=== PATIENT | male | born 1945 | race Caucasian/White ===

== ENCOUNTER 2016-12-25 14:49 | Emergency (ER) | payer MEDICARE ==
[~2016-12-25] VITALS: Ht 182.9 cm; Wt 120.0 kg
[~2016-12-25 14:49] MED LIST: ASPIRIN LOW81 M1 PO; ASPIRIN325 MG PO; AUGMENTIN500 MG OR; BENADRYL25 MG OR; BENAZEPRIL HCL20 MG PO; CARAFATE1 GM/10 ML OR; CIPROFLOXACIN500 M1 PO; COZAAR50 MG OR; DOXYCYCL HYC100 MG PO; FINASTERIDE5 MG PO; FLOMAX0.4 M1 PO; HYDROCO/APAP1 TA9 PO; KEFLEX500 M1 PO; LASIX 20 MG TAB20 MG OR; LASIX 20 MG20 MG/TAB PO; LASIX20 MG PO; LOPRESSOR50 MG OR; LORTAB 10-325 M1 TAB PO; LORTAB5 PO; LOTENSIN20 MG PO; MAG CITRATE PO; METOPROL TAR50 MG PO; METOPROLOL TART50 MG PO; METOPROLOL50 M1 OR; METOPROLOL50 M1 PO; METRONIDAZOL500 MG PO; PERCOCET 5/325M1 TAB PO; PRAVACHOL20 MG OR; PRAVASTATIN SOD20 MG PO; PRAVASTATIN20 MG OR; PRAVASTATIN20 MG PO; ROCEPHIN1 G1 IV; TRAMADOL HYDROC50 MG PO; TYLENOL325 MG PO; ULTRAM50 M1 OR; ULTRAM50 M1 PO; VISTARIL PO; ZOFRAN ODT4 MG PO; [UNRECOGNIZED DRUG - OTHER]; [UNRECOGNIZED DRUG - REMARK] PO
[2016-12-25 16:37] LABS: URINE BILIRUBIN - DIPSTICK NEGATIVE (NEGATIVE); URINE BLOOD DIPSTICK LARGE (NEGATIVE); URINE COLOR YELLOW; URINE GLUCOSE - DIPSTICK NEGATIVE (NEGATIVE); URINE KETONE NEGATIVE (NEGATIVE); URINE NITRITE - DIPSTICK NEGATIVE (Negative); URINE PH 5.5 (4.5-8.0); URINE PROTEIN - DIPSTICK 100 mg/dL (NEG-TRACE); URINE SPECIFIC GRAVITY 1.025; URINE UROBILINOGEN - DIPSTICK 0.2 E.U./dL (0.2)
[2016-12-25 16:39] LABS: URINE CLARITY CLOUDY; URINE LEUK ESTERASE SMALL (NEGATIVE)
[2016-12-25 16:45] LABS: URINE AMORPH SEDIMENT MANY hpf (NONE-FER); URINE SQUAMOUS EPITHELIAL CELL FEW EPI/hpf (0-FEW); URINE WBC 20-50 WBC/hpf (0-5)
[2016-12-25 17:12] LABS: HEMATOCRIT 41.9 % (39.0-50.0); HEMOGLOBIN 13.8 g/dl (14.0-18.0); IMMATURE GRANULOCYTES 0.5 % (0.0-1.0); MEAN CORPUSCULAR HGB 29.3 pG CALC (26.0-32.0); MEAN CORPUSCULAR HGB CONC 32.9 g/L CALC (32.0-36.0); NEUT# 8.61 thou/uL (1.82-7.42); RED BLOOD COUNT 4.71 mill/uL (4.70-6.10); RED CELL DISTRI WIDTH 15.6 % (11.5-15.5)
[2016-12-25 17:28] LABS: ALBUMIN 3.9 g/dL (3.2-5.0); ALKALINE PHOSPHATASE 93 u/l (38-126); ANION GAP 15 (6-22 (CALC)); BILIRUBIN, TOTAL 0.7 mg/dL (0.0-1.4); BUN 22 mg/dL (8-23); BUN/CREATININE RATIO 17 (12-20 (CALC)); CALCIUM 9.1 mg/dL (8.4-10.2); CARBON DIOXIDE 23 mmol/l (22-30); CHLORIDE 107 mmol/l (95-108); CREATININE 1.3 mg/dL (0.7-1.3); GFR 54 ML/MIN (>=60 (CALC)); GFR FOR AFR.AMER. > 60 ML/MIN (>=60 (CALC)); GLUCOSE 113 mg/dL (82-115); POTASSIUM 4.2 mmol/l (3.5-5.1); SGOT/AST 18 u/l (19-48); SGPT/ALT 28 u/l (11-66); SODIUM 141 mmol/l (137-146); TOTAL PROTEIN 7.1 g/dL (6.3-8.2)
[2016-12-25 18:20] VITALS: BP 159/77
[2016-12-25] MEDS ORDERED: SEPTRA4001 PO (18:21)
--- NOTE | 2016-12-29 11:24 | NUR ---
Called in rx to [facility] for ciprofloxacin 500 mg po q12h x7 days with instructions to stop bactrim and keflex on 12/29/16 @ 4879
== END 2016-12-25 18:40 | disposition home or self-care (01) ==
LOC: ED 14:49
PROVIDERS: Emergency Medicine
DX: L89.152 Pressure ulcer of sacral region, stage 2 (principal); N39.0 Urinary tract infection, site not specified; B96.5 Pseudomonas (aeruginosa) (mallei) (pseudomallei) as the cause of diseases classified elsewhere; Z91.19 Patient's noncompliance with other medical treatment and regimen; Y92.129 Unspecified place in nursing home as the place of occurrence of the external cause

== ENCOUNTER 2017-04-10 14:10 | Inpatient (IN) | payer MEDICARE ==
[~2017-04-10] VITALS: Ht 182.9 cm; Wt 111.0 kg
[~2017-04-10 14:10] MED LIST changes: +SEPTRA4001 PO
[2017-04-10 15:00] LABS: HEMATOCRIT 41.5 % (39.0-50.0); HEMOGLOBIN 13.5 g/dl (14.0-18.0); IMMATURE GRANULOCYTES 0.3 % (0.0-1.0); MEAN CELL VOLUME 89.4 fL CALC (80.0-100.0); MEAN CORPUSCULAR HGB 29.1 pG CALC (26.0-32.0); MEAN CORPUSCULAR HGB CONC 32.5 g/L CALC (32.0-36.0); NEUT# 5.29 thou/uL (1.82-7.42); RED BLOOD COUNT 4.64 mill/uL (4.70-6.10); RED CELL DISTRI WIDTH 15.4 % (11.5-15.5)
[2017-04-10 15:07] LABS: URINE BILIRUBIN - DIPSTICK NEGATIVE (NEGATIVE); URINE BLOOD DIPSTICK TRACE-LYSED (NEGATIVE); URINE COLOR YELLOW; URINE GLUCOSE - DIPSTICK NEGATIVE (NEGATIVE); URINE KETONE NEGATIVE (NEGATIVE); URINE PROTEIN - DIPSTICK NEGATIVE (NEG-TRACE); URINE SPECIFIC GRAVITY 1.015; URINE UROBILINOGEN - DIPSTICK 0.2 E.U./dL (0.2)
[2017-04-10 15:10] LABS: ALBUMIN 3.9 g/dL (3.2-5.0); ALKALINE PHOSPHATASE 103 u/l (38-126); ANION GAP 16 (6-22 (CALC)); BILIRUBIN, TOTAL 0.6 mg/dL (0.0-1.4); BUN 21 mg/dL (8-23); BUN/CREATININE RATIO 17 (12-20 (CALC)); CARBON DIOXIDE 25 mmol/l (22-30); CHLORIDE 106 mmol/l (95-108); CREATININE 1.2 mg/dL (0.7-1.3); GFR 59 ML/MIN (>=60 (CALC)); GFR FOR AFR.AMER. > 60 ML/MIN (>=60 (CALC)); POTASSIUM 4.5 mmol/l (3.5-5.1); SGOT/AST 24 u/l (19-48); SGPT/ALT 21 u/l (11-66); SODIUM 142 mmol/l (137-146); TOTAL PROTEIN 7.1 g/dL (6.3-8.2)
[2017-04-10 15:10] LABS: URINE BACTERIA MANY hpf; URINE CLARITY CLOUDY; URINE EPITHELIAL CELLS MODERATE EPI/hpf (0-FEW); URINE LEUK ESTERASE MODERATE (NEGATIVE); URINE NITRITE - DIPSTICK POSITIVE (Negative); URINE RBC 0-2 RBC/hpf (0-5)
[2017-04-10] MEDS ORDERED: TYLENOL 500MG TAB PO (15:16)
[2017-04-10] MEDS ORDERED: TAMSULOSIN HCL0.4 MG PO (15:17)
[2017-04-10] MEDS ORDERED: FINASTERIDE5 MG PO (15:17)
[2017-04-10 15:22] LABS: MYOGLOBIN 31 ng/mL (0 - 121)
[2017-04-10 18:10] VITALS: BP 150/80
[2017-04-10 23:35] VITALS: BP 124/67
[2017-04-11 04:15] VITALS: BP 118/63
[2017-04-11 06:01] LABS: HEMATOCRIT 36.9 % (39.0-50.0); MEAN CELL VOLUME 89.1 fL CALC (80.0-100.0); MEAN CORPUSCULAR HGB CONC 32.5 g/L CALC (32.0-36.0); RED BLOOD COUNT 4.14 mill/uL (4.70-6.10); RED CELL DISTRI WIDTH 15.3 % (11.5-15.5)
[2017-04-11 06:19] LABS: ANION GAP 15 (6-22 (CALC)); BUN 18 mg/dL (8-23); BUN/CREATININE RATIO 15 (12-20 (CALC)); CARBON DIOXIDE 25 mmol/l (22-30); CHLORIDE 108 mmol/l (95-108); CREATININE 1.2 mg/dL (0.7-1.3); GFR 59 ML/MIN (>=60 (CALC)); GFR FOR AFR.AMER. > 60 ML/MIN (>=60 (CALC)); MAGNESIUM 1.8 mg/dL (1.6-2.3); POTASSIUM 4.1 mmol/l (3.5-5.1); SODIUM 143 mmol/l (137-146)
[2017-04-11 07:46] VITALS: BP 142/64
[2017-04-11 10:53] VITALS: BP 154/68
[2017-04-11 14:57] VITALS: BP 120/61
[2017-04-11 18:55] VITALS: BP 16/60
[2017-04-11 23:15] VITALS: BP 136/75
[2017-04-12 03:49] VITALS: BP 139/72
[2017-04-12 05:53] LABS: HEMATOCRIT 37.2 % (39.0-50.0); HEMOGLOBIN 11.9 g/dl (14.0-18.0); MEAN CELL VOLUME 90.7 fL CALC (80.0-100.0); RED BLOOD COUNT 4.1 mill/uL (4.70-6.10); RED CELL DISTRI WIDTH 15.2 % (11.5-15.5)
[2017-04-12 05:59] LABS: CREATININE 1.4 mg/dL (0.7-1.3); POTASSIUM 3.9 mmol/l (3.5-5.1)
[2017-04-12 08:25] VITALS: BP 133/86
[2017-04-12 10:51] VITALS: BP 135/61
[2017-04-12 15:27] VITALS: BP 146/63
[2017-04-12 19:00] VITALS: BP 125/67
[2017-04-13] VITALS (7 sets, daily range): BP systolic 133–151; BP diastolic 61–83
[2017-04-13 05:42] LABS: HEMATOCRIT 37.3 % (39.0-50.0); HEMOGLOBIN 12.1 g/dl (14.0-18.0); MEAN CELL VOLUME 89.7 fL CALC (80.0-100.0); MEAN CORPUSCULAR HGB 29.1 pG CALC (26.0-32.0); MEAN CORPUSCULAR HGB CONC 32.4 g/L CALC (32.0-36.0); RED BLOOD COUNT 4.16 mill/uL (4.70-6.10); RED CELL DISTRI WIDTH 15.1 % (11.5-15.5)
[2017-04-13 05:49] LABS: ANION GAP 14 (6-22 (CALC)); BUN 15 mg/dL (8-23); BUN/CREATININE RATIO 12 (12-20 (CALC)); CARBON DIOXIDE 22 mmol/l (22-30); CHLORIDE 110 mmol/l (95-108); CREATININE 1.3 mg/dL (0.7-1.3); GFR 54 ML/MIN (>=60 (CALC)); GFR FOR AFR.AMER. > 60 ML/MIN (>=60 (CALC)); MAGNESIUM 1.9 mg/dL (1.6-2.3); POTASSIUM 4.1 mmol/l (3.5-5.1); SODIUM 142 mmol/l (137-146)
[2017-04-13 12:01] LABS: CHOLESTEROL HDL RATIO 5.2 (<4.4 (CALC)); MAGNESIUM 1.9 mg/dL (1.6-2.3)
[2017-04-14 04:45] VITALS: BP 150/80
[2017-04-14 06:23] LABS: HEMOGLOBIN 12.5 g/dl (14.0-18.0); MEAN CELL VOLUME 88.8 fL CALC (80.0-100.0); MEAN CORPUSCULAR HGB 29.2 pG CALC (26.0-32.0); MEAN CORPUSCULAR HGB CONC 32.9 g/L CALC (32.0-36.0); RED BLOOD COUNT 4.28 mill/uL (4.70-6.10); RED CELL DISTRI WIDTH 15.1 % (11.5-15.5)
[2017-04-14 06:35] LABS: ANION GAP 14 (6-22 (CALC)); BUN 17 mg/dL (8-23); BUN/CREATININE RATIO 13 (12-20 (CALC)); CARBON DIOXIDE 22 mmol/l (22-30); CHLORIDE 108 mmol/l (95-108); CREATININE 1.3 mg/dL (0.7-1.3); GFR 54 ML/MIN (>=60 (CALC)); GFR FOR AFR.AMER. > 60 ML/MIN (>=60 (CALC)); MAGNESIUM 1.9 mg/dL (1.6-2.3); POTASSIUM 3.9 mmol/l (3.5-5.1); SODIUM 141 mmol/l (137-146)
[2017-04-14 08:48] VITALS: BP 157/77
[2017-04-14 11:00] VITALS: BP 134/73
[2017-04-14 16:00] VITALS: BP 149/66
[2017-04-14] MEDS ORDERED: GENTAK0.32 OU (17:59)
[2017-04-14] MEDS ORDERED: CIPROFLOXACN500 MG PO (18:00)
[2017-04-14] MEDS ORDERED: FLORASTOR250 M1 PO (18:00)
[2017-04-14 19:04] VITALS: BP 141/61
== END 2017-04-14 20:50 | DRG 698 ==
LOC: ED 14:10 → ED-I 16:20 → ED 16:47 → MS2 16:48
PROVIDERS: Emergency Medicine; Nurse Practitioner Family; ADMIT Internal Medicine; ATTEND Internal Medicine
PROC: 3E0234Z Introduction of Serum, Toxoid and Vaccine into Muscle, Percutaneous Approach (ICD-10-PCS; principal; 2017-04-12)
DX: T83.511A Infection and inflammatory reaction due to indwelling urethral catheter, initial encounter (principal); A41.9 Sepsis, unspecified organism; L89.122 Pressure ulcer of left upper back, stage 2; L89.152 Pressure ulcer of sacral region, stage 2; N18.3 Chronic kidney disease, stage 3 (moderate); L03.312 Cellulitis of back [any part except buttock and flank]; N13.8 Other obstructive and reflux uropathy; N39.0 Urinary tract infection, site not specified; I25.10 Atherosclerotic heart disease of native coronary artery without angina pectoris; I71.4 Abdominal aortic aneurysm, without rupture; I12.9 Hypertensive chronic kidney disease with stage 1 through stage 4 chronic kidney disease, or unspecified chronic kidney disease; M54.12 Radiculopathy, cervical region; E78.5 Hyperlipidemia, unspecified; M19.90 Unspecified osteoarthritis, unspecified site; K27.9 Peptic ulcer, site unspecified, unspecified as acute or chronic, without hemorrhage or perforation; R53.81 Other malaise; N40.1 Benign prostatic hyperplasia with lower urinary tract symptoms; K59.00 Constipation, unspecified; R10.13 Epigastric pain; H10.33 Unspecified acute conjunctivitis, bilateral; L20.9 Atopic dermatitis, unspecified; B96.5 Pseudomonas (aeruginosa) (mallei) (pseudomallei) as the cause of diseases classified elsewhere; Y84.6 Urinary catheterization as the cause of abnormal reaction of the patient, or of later complication, without mention of misadventure at the time of the procedure; Z74.01 Bed confinement status; Z95.1 Presence of aortocoronary bypass graft; Z87.891 Personal history of nicotine dependence; Z87.442 Personal history of urinary calculi; Z23 Encounter for immunization
CPT/HCPCS: J0692; J3370

== ENCOUNTER 2017-05-18 15:21 | Emergency (ER) | payer MEDICARE ==
[~2017-05-18] VITALS: Ht 182.9 cm; Wt 110.5 kg
[~2017-05-18 15:21] MED LIST changes: +CIPROFLOXACN500 MG PO; +FLORASTOR250 M1 PO; +GENTAK0.32 OU; +TAMSULOSIN HCL0.4 MG PO; +TYLENOL 500MG TAB PO
[2017-05-18 15:46] LABS: HEMATOCRIT 41.3 % (39.0-50.0); HEMOGLOBIN 13.5 g/dl (14.0-18.0); IMMATURE GRANULOCYTES 0.4 % (0.0-1.0); MEAN CELL VOLUME 88.4 fL CALC (80.0-100.0); MEAN CORPUSCULAR HGB 28.9 pG CALC (26.0-32.0); MEAN CORPUSCULAR HGB CONC 32.7 g/L CALC (32.0-36.0); NEUT# 8.19 thou/uL (1.82-7.42); RED BLOOD COUNT 4.67 mill/uL (4.70-6.10); RED CELL DISTRI WIDTH 15.5 % (11.5-15.5)
[2017-05-18 16:00] LABS: PROTHROMBIN TIME 10.8 SECONDS (9.0-12.5)
[2017-05-18 16:16] VITALS: BP 139/70
== END 2017-05-18 16:50 | disposition home or self-care (01) ==
LOC: ED 15:21
PROVIDERS: Family Medicine
DX: T83.83XA Hemorrhage due to genitourinary prosthetic devices, implants and grafts, initial encounter (principal); R31.9 Hematuria, unspecified

== ENCOUNTER 2017-05-26 14:38 | Inpatient (IN) | payer MEDICARE ==
[~2017-05-26] VITALS: Ht 182.9 cm; Wt 104.9 kg
--- NOTE | 2017-05-26 14:38 | NUR ---
pt to room 14 via ems. coughing w/chest pain
[2017-05-26 15:20] LABS: HEMATOCRIT 40.6 % (39.0-50.0); IMMATURE GRANULOCYTES 0.4 % (0.0-1.0); MEAN CELL VOLUME 88.8 fL CALC (80.0-100.0); MEAN CORPUSCULAR HGB 28.4 pG CALC (26.0-32.0); NEUT# 11.43 thou/uL (1.82-7.42); RED BLOOD COUNT 4.57 mill/uL (4.70-6.10); RED CELL DISTRI WIDTH 15.4 % (11.5-15.5)
[2017-05-26 15:30] LABS: ANION GAP 20 (6-22 (CALC)); BUN 26 mg/dL (8-23); BUN/CREATININE RATIO 18 (12-20 (CALC)); CARBON DIOXIDE 24 mmol/l (22-30); CHLORIDE 101 mmol/l (95-108); CREATININE 1.4 mg/dL (0.7-1.3); GFR 50 ML/MIN (>=60 (CALC)); GFR FOR AFR.AMER. 60 ML/MIN (>=60 (CALC)); SODIUM 141 mmol/l (137-146)
--- NOTE | 2017-05-26 15:31 | NUR ---
TEMP 99.1 ORALLY. PT SWABBED FOR FLU.
[2017-05-26 16:09] LABS: INFLUENZA A NONE DETECTED (NONE DETECT); INFLUENZA B NONE DETECTED (NONE DETECT)
--- NOTE | 2017-05-26 16:22 | NUR ---
PT PROVIDED MEDS ORDERED. MEDS RECONCILED PER PHONE CONVERSATION WITH HIS NAUN.
--- NOTE | 2017-05-26 17:15 | NUR ---
PT TAKEN TO ROOM 281 WITHOUT INCIDENT, REPORT WAS TO JUDI.
--- NOTE | 2017-05-26 17:22 | NUR ---
PT CAME FROM ER VIA STRETCHER BY WHITLEY ABDI. X3 PERSON ASSISTED PT TO TRANFER FROM STRETCHER TO BED. ORIENTED TO CALL LIGHT AND SAFETY PRECAUTIONS REINFORCED.
--- NOTE | 2017-05-26 18:00 | NUR ---
ASSESSMENT DONE AND TELE IN PLACE. LUNG SOUND DIMINISHED. # 20 LAC THAT APPEAR HEALTHY. PT HAS RASH ON RIGHT SIDE OF CHEST, BACK AND DRY SKIN. CALL LIGHT IN REACH.
[2017-05-26 18:04] VITALS: BP 134/59
[2017-05-26 18:20] VITALS: BP 129/79
--- NOTE | 2017-05-26 20:00 | NUR ---
PATIENT RESTING IN BED AT THIS TIME-AWAKE ALERT AND ORIENTEDX3. PATIENT INCONT OF MODERATE AMT OF SOFT BROWN STOOL. PATIENT IS GETTING COMPLETE BED BATH BY RUBBER COVERING MACHINE OPERATOR AT THIS TIME. PATIENT GIVEN KOROMA CATH CARE WITH SOAP AND WATER. KOROMA IS PATENT AND DRAINING CLOUDY YELLOW URINE WITH SEDIMENT. LUCA-CARE WAS GIVEN AND BARRIER CREAM APPLIED TO BUTTOCKS AND PERINEAL AREA. PATIENT TURNED AND REPOSITIONED-COMPLETE LINEN CHANGE WAS DONE. PATIENT WITH NON-PRODUCTIVE COUGH. POOR INSPIRATORY EFFORT-ENCOURAGE DEEP BREATHING EXERCISES. BS ARE DIMINISHED. IV SITE TO LEFT AC-IVF NS HUNG AT 80CC/HR. SITE APPEARS HEALTHY AT THIS TIME. PATIENT IS TOTAL CARE-STATES THATHE IS BEDBOUND FOR LAST COUPLE OF YEARS. SAFETY PRECAUTIONS REINFORCED.CALL LIGHT IN REACH. WILL CONT TO MONITOR. TELE MONITORING DEVICE IN PLACE.
[2017-05-26 23:48] VITALS: BP 122/69
--- NOTE | 2017-05-27 00:34 | NUR ---
PATIENT RESTING IN BED WITH NO COMPLAINTS AT THIS TIME. IV ZOSYN COMPLETED ORDERED. NS PATENT AND INFUSING AT 80CC/HR VIA LEFT AC SITE. KOROMA PATENT AND DRAINING CLOUDY YELLOW URINE. CALL LIGHT IN REACH. WILL CONT TO MONITOR.
[2017-05-27 04:00] VITALS: BP 128/75
--- NOTE | 2017-05-27 04:00 | NUR ---
PATIENT AWAKE AND INCONT OF MODERATE AMT OF BROWN STOOL. PATIENT CLEANED UP WITH SOAP AND WATER-BUTTOCKS, PERINEAL AND BACK ARE RED AND INFLAMED. BARRIER CREAM APPLIED TO AFFECTED AREAS. PATIENT WAS TURNED AND REPOSITIONED. PADS CHANGED. PATIENT TAKING PO FLUIDS WHEN OFFERED. CONT TO ENCOURAGE DEEP BREATHING EXERCISES. POOR INSPIRATORY EFFORT. NON-PRODUCTIVE COUGH NOTED. CALL LIGHT IN REACH. WILL CONT TO MONITOR.
--- NOTE | 2017-05-27 07:18 | NUR ---
RECEIVED BEDSIDE REPORT FROM EDISON ARREAGA. RESTING IN SUPINE POSITION WITH EYES CLOSED, AWAKENS EASILY. RESPS EVEN AND UNLABORED ON ROOM AIR, TELE MONITOR IN PLACE. KOROMA PATENT, DRAINING CLOUDY YELLOW URINE TO GRAVITY. #20 LAC INFUSING WITHOUT DIFFICULTY, SITE APPEARS HEALTHY. VOICES NO NEEDS AT THIS TIME. PLAN OF CARE DISCUSSED. SAFETY PRECAUTIONS REINFORCED. BED IN LOWEST POSITION WITH WHEELS LOCKED. CALL LIGHT WITHIN REACH. ENCOURAGED PT TO CALL FOR ANY NEEDS.
[2017-05-27 08:02] VITALS: BP 152/88
[2017-05-27 10:18] LABS: ANION GAP 16 (6-22 (CALC)); BUN 25 mg/dL (8-23); BUN/CREATININE RATIO 19 (12-20 (CALC)); CARBON DIOXIDE 24 mmol/l (22-30); CHLORIDE 104 mmol/l (95-108); CREATININE 1.3 mg/dL (0.7-1.3); GFR 54 ML/MIN (>=60 (CALC)); GFR FOR AFR.AMER. > 60 ML/MIN (>=60 (CALC)); MAGNESIUM 2.1 mg/dL (1.6-2.3); POTASSIUM 3.5 mmol/l (3.5-5.1); SODIUM 141 mmol/l (137-146)
--- NOTE | 2017-05-27 10:20 | NUR ---
MEDICATED WITH ROBITUSSIN PO FOR C/O "NAGGING COUGH."
[2017-05-27 11:24] VITALS: BP 126/68
--- NOTE | 2017-05-27 13:00 | NUR ---
DR IBARRA AT BEDSIDE, NEW ORDERS RECEIVED.
[2017-05-27 16:00] VITALS: BP 122/69
--- NOTE | 2017-05-27 16:14 | NUR ---
RESTING IN BED WITH EYES CLOSED, AWAKENS EASILY. RESPS EVEN AND UNLABORED ON ROOM AIR, TELE MONITOR IN PLACE. VOICES NO NEEDS AT THIS TIME. PO FLUIDS OFFERED. KOROMA PATENT, DRAINING ROSE MARY COLORED URINE TO GRAVITY. #20 LAC INFUSING WITHOUT DIFFICULTY, SITE APPEARS HEALTHY. CALL LIGHT WITHIN REACH. WILL CONTINUE TO MONITOR.
[2017-05-27 17:38] LABS: URINE BLOOD DIPSTICK LARGE (NEGATIVE); URINE COLOR YELLOW; URINE GLUCOSE - DIPSTICK NEGATIVE (NEGATIVE); URINE KETONE TRACE mg/dL (NEGATIVE); URINE PROTEIN - DIPSTICK 100 mg/dL (NEG-TRACE)
[2017-05-27 17:39] LABS: URINE BILIRUBIN - DIPSTICK NEGATIVE (NEGATIVE); URINE CLARITY CLOUDY; URINE LEUK ESTERASE MODERATE (NEGATIVE); URINE NITRITE - DIPSTICK POSITIVE (Negative)
[2017-05-27 17:40] LABS: URINE RBC 25-50 RBC/hpf (0-5)
[2017-05-27 17:41] LABS: URINE BACTERIA RARE hpf; URINE TRIP PHOS CRYSTALS MANY lpf
[2017-05-27 19:20] VITALS: BP 104/59; BP 120/65
--- NOTE | 2017-05-27 19:30 | NUR ---
PATIENT RESTING IN BED AT THIS TIME WITH NO COMPLAINTS. AWAKE ALERT AND ORIENTEDX3. CALL LIGHT IN REACH. WILL CONT TO MONITOR.
--- NOTE | 2017-05-27 20:15 | NUR ---
RESTING IN BED-THROAT SWAB OBTAINED FOR STREP ORDERED. PATIENT MEDICATED WITH ROBITUSSIN 5CC PO FOR NON-PRODUCTIVE COUGH. CALL LIGHT IN REACH. WILL CONT TO MONITOR.
--- NOTE | 2017-05-27 21:42 | NUR ---
PATIENT RESTING IN BED AT THIS TIME. PATIENT WAS GIVEN COMPLETE BED BATH, KOROMA CATH CARE AND LINEN CHANGED. PATIENT WAS TURNED AND REPOSITIONED. BARRIER CREAM WAS APPLIED TO BUTTOCKS, PERINEAL AND BACK FOR REDDENED AREAS. PATIENT IS NON-COMPLIANT TO BEING PLACE ON HIS SIDE AT THIS TIME. ATTEMPT TO EDUCATE PATIET REGUARDING IMMOBILITY AND EFFECTS ON SKIN WERE UNSUCCESSFUL.. BOTH HEELS OFFLOADED USING PILLOWS. KOROMA CONT TO DRAIN YELLOW CLOUDY URINE WITH SEDIMENT. IVF PATENT TO LEFT AC AT KVO RATE. CALL LIGHT IN REACH. WILL CONT TO MONITOR.
[2017-05-28] VITALS (7 sets, daily range): BP systolic 136–166; BP diastolic 62–84
--- NOTE | 2017-05-28 00:44 | NUR ---
PATIENT RESTING IN BED-NO COMPLAINTS AT THIS TIME. PATIENT CONT TO DECLINE REPOSITIONING. CALL LIGHT IN REACH. WILL CONT TO MONITOR.
[2017-05-28 05:56] LABS: HEMATOCRIT 38.2 % (39.0-50.0); HEMOGLOBIN 12.2 g/dl (14.0-18.0); IMMATURE GRANULOCYTES 0.6 % (0.0-1.0); MEAN CORPUSCULAR HGB 28.4 pG CALC (26.0-32.0); MEAN CORPUSCULAR HGB CONC 31.9 g/L CALC (32.0-36.0); NEUT# 5.75 thou/uL (1.82-7.42); RED BLOOD COUNT 4.29 mill/uL (4.70-6.10); RED CELL DISTRI WIDTH 15.1 % (11.5-15.5)
--- NOTE | 2017-05-28 07:35 | NUR ---
PT HAS BEEN RESTING WITH SHEETS OVER HIS HEAD, IV SITE IS FREE FROM REDNESS OR EDEMA. HR IS REG, PULSES ARE STRONG X4, ABD IS SOFT WITH ACTIVE BS, KOROMA INTACT. CONTINUE TO OBSERVE AND MONITOR.
--- NOTE | 2017-05-28 08:16 | NUR ---
Critical results of 1 of 4 bottles from blood culture called to Dr Pak. New order received for vancomycin.
[2017-05-28 08:18] LABS: CREATININE 1.4 mg/dL (0.7-1.3); POTASSIUM 3.2 mmol/l (3.5-5.1)
--- NOTE | 2017-05-28 12:00 | NUR ---
PT IS RELAXING IN BED WITH NO DISTRESS NOTED. IV SITE IS FREE FROM REDNESS OR EDEMA., PT C/O POTASSIUM BURNING HIM CUT THE RATE DOWN INFISONG BETTER MORE TOLERABLE.
--- NOTE | 2017-05-28 13:58 | NUR ---
S: MARIAH FINLEY is a 72 M who presents with chest pain, acute bronchitis, and decubitus ulcers. He has a history of CKD stage 3, pressure ulcers, and recent Pseudomonas infection of the wound. All medications in patient's chart were reviewed. O: VS: BP 136/73, P 84, RR 16,T 97.4 W 105 kg, HT 72 in, Scr=1.4, CrCl= 50.8 ml/min A: Blood culture is growing gram positive cocci. P: Patient is on Zosyn 3.375 g IV Q6H. Vancomycin ordered for pharmacy to dose. Start Vancomycin 1 g IV Q12H. Vancomycin trough is drawn before the 4th dose on 05/29 @2030. Vancomycin goal trough is between 15-20 mcg/ml. Pharmacy will follow and or advise on antibiotics use as needed.
--- NOTE | 2017-05-28 16:00 | NUR ---
PT IS CONTINUING THE POTASSIUM AT A LOW RATE DUE TO BURNING. IV SITE IS FREE FROM REDNESS OR EDEMA. CONTIINUE TO OSBERVE AND MONITOR, TELE MONITOR IN PLACE.
--- NOTE | 2017-05-28 20:35 | NUR ---
PT.IS UPRIGHT IN BED W/TV OFF SITTING IN HIGH FOWLERS POSITION. ANTIBIOTIC THERAPY AND MEDICATIONS ADMINISTERED ORDERED. PT.ASSESSED AND REPOSITIONED. PT.DENIES ANY OTHER NEEDS AT THIS TIME, CALL LIGHT IS IN HAND.
--- NOTE | 2017-05-28 23:10 | NUR ---
ED CALLED TO REPORT 4 BEAT RUN OF V-TACH. PT.ASSESSED ASYMPTOMATIC, V/S ASSESSED, BP150/79,HR92 O2 SAT 95% ED FAXED COPY OF RUN FOR CHART. BOOK COVERER WAS PREVIOUSLY NOTIFIED EARLIER AND NO NEW ORDERS AT THAT TIME. WILL CONTINUE TO MONITOR CLOSELY.
--- NOTE | 2017-05-28 23:58 | NUR ---
PT.MEDICATED W/ANTIBIOTIC THERAPY AT THIS TIME. PT.WAS ASLEEP, BUT AWOKE TO MY VOICE UPON ENTERING ROOM. DENIES ANY NEEDS, CALL LIGHT AT SIDE.
[2017-05-29 04:09] VITALS: BP 153/80
--- NOTE | 2017-05-29 04:10 | NUR ---
ED CALLED TO REPORT RUN OF V-TACH 118 ON ASSET COORDINATOR. AIDE AND NURSE ZENAIDA ARE IN ROOM AT THIS TIME ASSESSING 4AM V/S AND EMPTYING KORMOA CATHETER. PT.IS ASYMPTOMATIC, DENIES SOB OR CHEST PAIN AT THIS TIME.
--- NOTE | 2017-05-29 05:18 | NUR ---
ED CALLED TO REPORT RUN OF V-TACH, PT.DENIES ANY SYMPTOMS, NO CHEST PAIN OR SOB. V/S ASSESSED. NO S/S OF DISTRESS. PT.INSTRUCTED TO CALL IF HE BECOMES SYMPTOMATIC OR HAS ANY NEEDS. PT.PROVIDED W/CRANBERRY JUICE PER REQUEST. CALL LIGHT AT BEDSIDE
--- NOTE | 2017-05-29 05:20 | NUR ---
PT.IS IN BED WITH LIGHTS OUT, BUT AWAKE. STATES TOO MUCH ACTIVITY GOING ON W/LAB AND ALL COMING IN TO SLEEP. ANTIBIOTIC THERAPY ADMINISTERED AT THIS TIME. NO S/S OF DISTRESS, KOROMA CATHETER DRAINING DARK STEPHEN TO RED DRAINAGE.
[2017-05-29 05:27] LABS: HEMATOCRIT 36.2 % (39.0-50.0); HEMOGLOBIN 11.7 g/dl (14.0-18.0); MEAN CELL VOLUME 88.5 fL CALC (80.0-100.0); MEAN CORPUSCULAR HGB 28.6 pG CALC (26.0-32.0); MEAN CORPUSCULAR HGB CONC 32.3 g/L CALC (32.0-36.0); RED BLOOD COUNT 4.09 mill/uL (4.70-6.10); RED CELL DISTRI WIDTH 15.2 % (11.5-15.5)
[2017-05-29 05:59] LABS: ANION GAP 16 (6-22 (CALC)); BUN 26 mg/dL (8-23); BUN/CREATININE RATIO 20 (12-20 (CALC)); CARBON DIOXIDE 24 mmol/l (22-30); CHLORIDE 107 mmol/l (95-108); CREATININE 1.3 mg/dL (0.7-1.3); GFR 54 ML/MIN (>=60 (CALC)); GFR FOR AFR.AMER. > 60 ML/MIN (>=60 (CALC)); MAGNESIUM 2.3 mg/dL (1.6-2.3); POTASSIUM 3.8 mmol/l (3.5-5.1); SODIUM 143 mmol/l (137-146)
--- NOTE | 2017-05-29 07:15 | NUR ---
BEDSIDE REPORT RECEIVED BY RADHAMES. PT IS SLEEPING IN BED WITH NO S/S OF DISTRESS NOTED. CALL LIGHT IN REACH.
[2017-05-29 07:59] VITALS: BP 146/84
--- NOTE | 2017-05-29 08:00 | NUR ---
ASSESSMENT DONE AND TELE IN PLACE. LUNG SOUND CLEAR/DIMINISHED. PT DENIES PAIN AT THIS TIME. ORIENTED TO CALL LIGHT AND SAFETY PRECAUTIONS REINFORCED.
[2017-05-29 10:49] VITALS: BP 142/68
--- NOTE | 2017-05-29 12:00 | NUR ---
TURN PT TO RIGHT SIDE AND SKIN PROTECTANT APPLIED TO BACK. NO S/S OF DISTRESS NOTED. PT DENIES PAIN AT THIS TIME. CALL LIGHT IN REACH.
--- NOTE | 2017-05-29 13:03 | NUR ---
ED CALLED RE: PT HAVING A 8 BEAT, ASSESS PT AND PT IS GETTING A NEB TREATMENT. PT DENIES PAIN AND NO S/S OF DISTRESS NOTED. WILL CONTUINE TO MONITOR PT .
[2017-05-29 14:35] VITALS: BP 131/73
--- NOTE | 2017-05-29 14:35 | NUR ---
ED CALLED RE: PT HAD 7 BEAT HEART RATE V-TACH. VS OBTAINED AND PT DENIES PAIN AT THIS TIME. NOTIFIED DR. ALEMAN, NO ORDERS RECEIVED AT THIS TIME.
[2017-05-29 15:35] VITALS: BP 146/75
--- NOTE | 2017-05-29 16:03 | NUR ---
PT IS SEMI-FOWLERS WITH NO S/S OF DISTRESS NOTED. PT DENIES NEEDS AT THIS TIME. CALL LIGHT IN REACH.
--- NOTE | 2017-05-29 19:20 | NUR ---
PT.IS IN BED IN HIGH FOWLERS POSITION WITH LIGHTS LOW AND TV ON. PT.DENIES ANY NEEDS AT THIS TIME, CALL LIGHT AT BEDSIDE AND PT.INSTRUCTED TO CALL IF ANY NEEDS ARISE. NO S/S OF DISTRESS.
[2017-05-29 19:35] VITALS: BP 112/66
--- NOTE | 2017-05-29 20:28 | NUR ---
PT.ASSESSED, LUNG SOUNDS DIM LOWER/CLEAR UPPER. REPORTS OCCASIONAL NON-PRODUCTIVE COUGH. DENIES ANY CHEST PAIN OR SOB. REPORTS GETTING DUO-NEBS THROUGHOUT DAY. FEET BILAT POSIITIONED ON PILLOWS OFF OF BED. HEEL PROTECTORS IN PLACE. PT.DENIES ANY OTHER NEEDS AT THIS TIME, BUT ENCOURAGED PT.TO CALL IF ANY NEEDS ARISE. CALL LIGHT IS AT SIDE. WATER REFILLED FOR PT.
[2017-05-30] VITALS (7 sets, daily range): BP systolic 119–146; BP diastolic 65–82
--- NOTE | 2017-05-30 02:20 | NUR ---
PT.APPEARS TO BE SLEEPING AT THIS TIME. NO S/S OF DISTRESS. LIGHTS ARE OUT, TV OFF. CALL LIGHT ON BST W/IN REACH
--- NOTE | 2017-05-30 05:30 | NUR ---
PT.REPOSITIONED, PICTURES TAKEN AND BARRIER CREAM APPLIED TO BACK, HEEL PROTECTORS ON AND ELEVATED ON PILLOWS W/HEELS OFF OF BED. PT. DENIES ANY OTHER NEEDS, CALL LIGHT W/IN REACH
--- NOTE | 2017-05-30 07:00 | NUR ---
BEDSIDE REPORT RECEIVED RADHAMES. PT IS RESTING IN BED WITH NO S/S OF DISTRESS NOTED. PT DENIES NEEDS AT THIS TIME. CALL LIGHT IN REACH.
--- NOTE | 2017-05-30 08:00 | NUR ---
ASSESSMENT DONE AND TELE IN PLACE. LUNG SOUND CLEAR/DIMINISHED. #20 RAC THAT APPEARS HEALTHY. PT DENIES PAIN AT THIS TIME. SAFETY PRECAUTIONS REINFROCED. CALL LIGHT IN REACH.
--- NOTE | 2017-05-30 10:41 | NUR ---
CALLED DR. HECTOR RE: PT CONSULT.
--- NOTE | 2017-05-30 12:00 | NUR ---
PT IS SEMI FOWLERS IN BED EATING HIS LUNCH WITH NO S/S OF DISTRESS NOTED. PT DENIES NEEDS AT THIS TIME. CALL LIGHT IN REACH.
--- NOTE | 2017-05-30 14:09 | NUR ---
STRING STUDIES DIRECTOR TURN PT TO LEFT SIDE. PT DENIES NEEDS AT THIS TIME. PT IN ROOM. CALL LIGHT IN REACH.
--- NOTE | 2017-05-30 15:54 | NUR ---
DR. HECTOR AT BEDSIDE TO ASSESS PT .
--- NOTE | 2017-05-30 16:34 | NUR ---
ANGELICARN AT BEDSIDE TO DO THE INTERGATION ON PACEMAKER, PER DR. HECTOR.
--- NOTE | 2017-05-30 16:34 | NUR ---
WHITLEY DOMINGUEZFLATBED TRUCK DRIVER PT PACEMAKER, PER DR. HECTOR.
--- NOTE | 2017-05-30 16:49 | NUR ---
WHITLEY DOMINGUEZ CALLED DR. HECTOR RE: PT RESULT OF PACEMAKER. STATED THAT PT WILL BE TRANSFER TOMORROW TO [facility].
--- NOTE | 2017-05-30 19:28 | NUR ---
REPORT RECIEVED; PT RESTING IN BED. PT DENIES ANY PAIN OR DISCOMFORT. RESP EVEN AND UNLABORED. LUNGS CLEAR/DIMINISHED BILAT. TELE IN PLACE. ABD DISTENDED/SOFT; HYPOACTIVE BOWEL SOUNDS NOTED. KOROMA CATH CARE GIVEN; KOROMA PATENT DRAINING DARK ROSE MARY URINE. TRACE ANKLE EDEMA BILAT; PT ENCOURAGED TO ELEVATE. PEDAL PULSES PALPATED BILAT. IV LAC PATENT; NO REDNESS OR EDEMA NOTED. PT REPOSITIONED X2 PERSON ASSIST. SAFETY PRECAUTIONS REINFORCED. PT ENCOURAGED TO CALL FOR ASSISTANCE. FREQUENT ROUNDS MADE. CALL LIGHT WITHIN REACH.
--- NOTE | 2017-05-30 20:35 | NUR ---
DR HECTOR CALLED AND VOICE MESSAGE LEFT IN REGRDS TO [facility]ITER[facility] TO TRANSFERING PT TO ICU. KILNMAN NOTIFIED.
--- NOTE | 2017-05-31 | NUR ---
PT SLEEPING WITH EYES CLOSED. IV PATENT; NO REDNESS OR EDEMA NOTED. RESP EVEN AND UNLABORED. TELE IN PLACE. CALL LIGHT WITHIN REACH.
--- NOTE | 2017-05-31 04:00 | NUR ---
ASSESSMENT UNCHANGED. RESP EVEN AND UNLABORED; NO DISTRESS NOTED. TELE IN PLACE. IV PATENT; NO REDNESS OR EDEMA NOTED. CALL LIGHT WITHIN REACH.
[2017-05-31 05:30] VITALS: BP 146/86
--- NOTE | 2017-05-31 06:00 | NUR ---
ER CALLED, PT HAD 11 BEAT RUN OF V-TACH AT 0554. DR HECTOR NOTIFIED OF V TACH AND PT VITAL SIGNS. BP: 135/56, HR:86, O2: 94% ON ROOM AIR. PT ASYMPTOMATIC. NEW ORDER TO GIVE 0900 DOSE OF AMIODARONE 200MG NOW. TELE IN PLACE. CALL LIGHT WITHIN REACH.
--- NOTE | 2017-05-31 07:00 | NUR ---
BEDSIDE REPORT RECIEVED BY TITI. PT IS SLEEPING WITH NO S/S OF DISTRESS NOTED. CALL LIGHT IN REACH.
[2017-05-31 07:21] VITALS: BP 157/69
--- NOTE | 2017-05-31 07:35 | NUR ---
PT WENT DOWN TO ULTRASOUND VIA STRETCHER BY POULTRY INSEMINATOR.
--- NOTE | 2017-05-31 07:55 | NUR ---
PT BACK FROM ULTRASOUND WITH NO S/S OF DISTRESS NOTED. CALL LIGHT IN REACH.
--- NOTE | 2017-05-31 08:01 | NUR ---
ASSESSMENT DONE AND TELE IN PLACE. LUNG SOUND DIMINISHED. # 20 LAC THAT APPEAR HEALTHY. PT DENIES PAIN AT THIS TIME. SAFETY PRECAUTIONS REINFORCED AND CALL LIGHT IN REACH.
--- NOTE | 2017-05-31 12:15 | NUR ---
PT IS SEMI FOLWERS IN BED TALKING IN THE PHONE WITH NO S/S OF DISTRESS NOTED. PT DENIES PAIN AT THIS TIME. CALL LIGHT IN REACH.
[2017-05-31 12:35] VITALS: BP 134/79
--- NOTE | 2017-05-31 13:08 | NUR ---
RECEIVED AN ASSIGNED BED FOR PATIENT AND SPOKE TO MARIOLA. CALLED [facility] AND SET UP TRANSPORT. SPOKE WITH ZULY AND THEY SHOULD BE HERE AROUND 1530.
[2017-05-31 16:14] VITALS: BP 141/80
--- NOTE | 2017-05-31 16:36 | NUR ---
TRANSPORT IS HERE TAKING PT VIA STRETCHER TO [facility]. PT HAS NO S/S OF DISTRESS NOTED.
--- NOTE | 2017-05-31 17:03 | NUR ---
REPORT GIVEN TO NURSE SHALOM FROM [facility] .
== END 2017-05-31 16:50 | disposition short-term general hospital (02) | DRG 202 ==
LOC: ED 14:38 → ED-I 16:13 → ED 16:26 → MS2 16:27
PROVIDERS: Family Medicine; Nurse Practitioner Family; ADMIT Internal Medicine; ATTEND Internal Medicine
DX: J20.9 Acute bronchitis, unspecified (principal); I47.2 Ventricular tachycardia; L89.102 Pressure ulcer of unspecified part of back, stage 2; L89.302 Pressure ulcer of unspecified buttock, stage 2; N18.3 Chronic kidney disease, stage 3 (moderate); I13.0 Hypertensive heart and chronic kidney disease with heart failure and stage 1 through stage 4 chronic kidney disease, or unspecified chronic kidney disease; T82.191A Other mechanical complication of cardiac pulse generator (battery), initial encounter; T83.511A Infection and inflammatory reaction due to indwelling urethral catheter, initial encounter; N39.0 Urinary tract infection, site not specified; I49.3 Ventricular premature depolarization; I48.91 Unspecified atrial fibrillation; D63.1 Anemia in chronic kidney disease; I50.9 Heart failure, unspecified; I25.10 Atherosclerotic heart disease of native coronary artery without angina pectoris; K21.9 Gastro-esophageal reflux disease without esophagitis; E78.5 Hyperlipidemia, unspecified; N40.0 Benign prostatic hyperplasia without lower urinary tract symptoms; M48.00 Spinal stenosis, site unspecified; I71.4 Abdominal aortic aneurysm, without rupture; M19.90 Unspecified osteoarthritis, unspecified site; R53.81 Other malaise; I25.2 Old myocardial infarction; Y83.1 Surgical operation with implant of artificial internal device as the cause of abnormal reaction of the patient, or of later complication, without mention of misadventure at the time of the procedure; Y84.6 Urinary catheterization as the cause of abnormal reaction of the patient, or of later complication, without mention of misadventure at the time of the procedure; Z95.5 Presence of coronary angioplasty implant and graft; Z87.440 Personal history of urinary (tract) infections; Z74.01 Bed confinement status; Z87.891 Personal history of nicotine dependence; Z87.11 Personal history of peptic ulcer disease; Z91.19 Patient's noncompliance with other medical treatment and regimen; Z87.442 Personal history of urinary calculi; Z95.1 Presence of aortocoronary bypass graft
CPT/HCPCS: G0378

== ENCOUNTER 2017-06-16 11:29 | Observation (INO) | payer MEDICARE ==
[~2017-06-16] VITALS: Ht 182.9 cm; Wt 107.5 kg
[2017-06-16 12:40] LABS: HEMATOCRIT 38.8 % (39.0-50.0); HEMOGLOBIN 12.4 g/dl (14.0-18.0); IMMATURE GRANULOCYTES 0.8 % (0.0-1.0); MEAN CORPUSCULAR HGB 28.8 pG CALC (26.0-32.0); NEUT# 11.88 thou/uL (1.82-7.42); RED BLOOD COUNT 4.31 mill/uL (4.70-6.10); RED CELL DISTRI WIDTH 16.8 % (11.5-15.5)
[2017-06-16 14:08] LABS: ALBUMIN 2.7 g/dL (3.2-5.0); BILIRUBIN, TOTAL 0.5 mg/dL (0.0-1.4); CREATININE 1.6 mg/dL (0.7-1.3); POTASSIUM 4.6 mmol/l (3.5-5.1); TOTAL PROTEIN 5.6 g/dL (6.3-8.2)
[2017-06-16 14:32] LABS: URINE BILIRUBIN - DIPSTICK NEGATIVE (NEGATIVE); URINE BLOOD DIPSTICK LARGE (NEGATIVE); URINE GLUCOSE - DIPSTICK NEGATIVE (NEGATIVE); URINE KETONE NEGATIVE (NEGATIVE); URINE NITRITE - DIPSTICK NEGATIVE (Negative); URINE PH 5.5 (4.5-8.0); URINE PROTEIN - DIPSTICK TRACE mg/dL (NEG-TRACE); URINE UROBILINOGEN - DIPSTICK 0.2 E.U./dL (0.2)
[2017-06-16 14:34] LABS: URINE CLARITY SL CLOUDY; URINE COLOR AMBER; URINE LEUK ESTERASE MODERATE (NEGATIVE)
[2017-06-16 14:35] LABS: URINE RBC 25-50 RBC/hpf (0-5); URINE YEAST FEW hpf
[2017-06-16 16:40] VITALS: BP 116/66
[2017-06-16 18:47] VITALS: BP 134/67
[2017-06-17 00:48] VITALS: BP 148/86
[2017-06-17 05:17] LABS: HEMATOCRIT 39.1 % (39.0-50.0); HEMOGLOBIN 12.6 g/dl (14.0-18.0); MEAN CELL VOLUME 89.7 fL CALC (80.0-100.0); MEAN CORPUSCULAR HGB 28.9 pG CALC (26.0-32.0); MEAN CORPUSCULAR HGB CONC 32.2 g/L CALC (32.0-36.0); RED BLOOD COUNT 4.36 mill/uL (4.70-6.10); RED CELL DISTRI WIDTH 16.8 % (11.5-15.5)
[2017-06-17 05:30] LABS: CREATININE 1.7 mg/dL (0.7-1.3); POTASSIUM 4.4 mmol/l (3.5-5.1)
[2017-06-17 06:29] VITALS: BP 122/70
[2017-06-17 08:00] VITALS: BP 121/57
[2017-06-17] MEDS ORDERED: PRAVASTATIN SOD20 MG PO (09:29)
[2017-06-17] MEDS ORDERED: ASPIRIN LOW DOS81 MG PO (09:29)
[2017-06-17] MEDS ORDERED: TAMSULOSIN HCL0.4 MG PO (09:31)
[2017-06-17] MEDS ORDERED: TYLENOL500 MG PO (09:31)
[2017-06-17] MEDS ORDERED: PROSCAR5 MG PO (09:31)
[2017-06-17] MEDS ORDERED: FUROSEMIDE20 MG PO (09:32)
== END 2017-06-17 16:02 ==
LOC: ED 11:29 → ED-I 15:05 → ED 15:19 → MS2 15:20
PROVIDERS: Emergency Medicine; Nurse Practitioner Family; ADMIT Internal Medicine; ATTEND Internal Medicine
DX: E86.0 Dehydration (principal); N17.9 Acute kidney failure, unspecified; I49.3 Ventricular premature depolarization; R53.81 Other malaise; R00.1 Bradycardia, unspecified; I48.91 Unspecified atrial fibrillation; E78.5 Hyperlipidemia, unspecified; I25.10 Atherosclerotic heart disease of native coronary artery without angina pectoris; K21.9 Gastro-esophageal reflux disease without esophagitis; N40.0 Benign prostatic hyperplasia without lower urinary tract symptoms; M19.90 Unspecified osteoarthritis, unspecified site; M48.00 Spinal stenosis, site unspecified; I71.4 Abdominal aortic aneurysm, without rupture; I12.9 Hypertensive chronic kidney disease with stage 1 through stage 4 chronic kidney disease, or unspecified chronic kidney disease; N18.3 Chronic kidney disease, stage 3 (moderate); Z95.5 Presence of coronary angioplasty implant and graft; Z95.1 Presence of aortocoronary bypass graft; Z87.11 Personal history of peptic ulcer disease; Z87.891 Personal history of nicotine dependence; Z95.810 Presence of automatic (implantable) cardiac defibrillator
CPT/HCPCS: J1650

== ENCOUNTER 2017-08-09 07:01 | Inpatient (IN) | payer MEDICARE ==
[~2017-08-09] VITALS: Ht 182.9 cm; Wt 107.5 kg
[~2017-08-09 07:01] MED LIST changes: +ASPIRIN LOW DOS81 MG PO; +FUROSEMIDE20 MG PO; +PROSCAR5 MG PO; +TYLENOL500 MG PO
--- NOTE | 2017-08-09 07:01 | NUR ---
TO TX ROOM VIA STRETCHER BY EMS
--- NOTE | 2017-08-09 07:32 | NUR ---
PT STATES THAT HE BEGAN HAVING A FEVER ON THURSDAY THAT IS NOT GOING AWAY WITH MEDICATIONS. PT DENIES ANY C/P, SOB, N/V OR WEAKNESS. PT HAS CRACKLES IN THE LEFT LOWER LOBE ON AUSCULTATION, PT HAS A REDDENED BACK WITH A OPENING ON THE RIGHT SHOULDER. PT HAS A KOROMA PLACED PRIOR AT HOME, PT IS AOX4. PT IS BEDRIDDEN.
[2017-08-09 07:43] LABS: HEMATOCRIT 36.4 % (39.0-50.0); HEMOGLOBIN 11.6 g/dl (14.0-18.0); IMMATURE GRANULOCYTES 0.4 % (0.0-1.0); MEAN CELL VOLUME 89.4 fL CALC (80.0-100.0); MEAN CORPUSCULAR HGB 28.5 pG CALC (26.0-32.0); MEAN CORPUSCULAR HGB CONC 31.9 g/L CALC (32.0-36.0); NEUT# 14.42 thou/uL (1.82-7.42); RED BLOOD COUNT 4.07 mill/uL (4.70-6.10); RED CELL DISTRI WIDTH 17.5 % (11.5-15.5)
[2017-08-09 07:57] LABS: PROTHROMBIN TIME 11.4 SECONDS (9.0-12.5)
[2017-08-09 07:58] LABS: ALBUMIN 3.6 g/dL (3.2-5.0); BILIRUBIN, TOTAL 0.9 mg/dL (0.0-1.4); CREATININE 1.5 mg/dL (0.7-1.3)
--- NOTE | 2017-08-09 08:21 | NUR ---
PT ASLEEP ON STRETCHER, FLUIDS RUNNING, IV PATENT WITH NO PAIN OR EDEMA. EKG BEING COMPLETED
[2017-08-09 08:48] LABS: URINE BILIRUBIN - DIPSTICK NEGATIVE (NEGATIVE); URINE BLOOD DIPSTICK LARGE (NEGATIVE); URINE COLOR YELLOW; URINE GLUCOSE - DIPSTICK NEGATIVE (NEGATIVE); URINE KETONE NEGATIVE (NEGATIVE); URINE LEUK ESTERASE LARGE (NEGATIVE); URINE NITRITE - DIPSTICK NEGATIVE (Negative); URINE PROTEIN - DIPSTICK 100 mg/dL (NEG-TRACE); URINE SPECIFIC GRAVITY 1.015; URINE UROBILINOGEN - DIPSTICK 0.2 E.U./dL (0.2)
[2017-08-09 08:49] LABS: URINE CLARITY CLOUDY; URINE EPITHELIAL CELLS MANY EPI/hpf (0-FEW); URINE RBC 25-50 RBC/hpf (0-5); URINE WBC 50-100 WBC/hpf (0-5)
[2017-08-09 08:50] LABS: URINE BACTERIA MODERATE hpf
--- NOTE | 2017-08-09 09:21 | NUR ---
PT RESTING ON STRETCHER, IV PATENT WITH ANTIBIOTICS RUNNING. PT STATES NO NEW COMPLAINTS AT THIS TIME.
--- NOTE | 2017-08-09 09:54 | NUR ---
ORDERED HOME KOROMA TO BE REMOVED AND REPLACED WITH A NEW URINE CATCH
--- NOTE | 2017-08-09 10:06 | NUR ---
REPOR CALLED TO ICU- REPORT GIVEN TO ALIZA ARREAGA- ACCEPTED PT
--- NOTE | 2017-08-09 10:32 | NUR ---
Admission Note Report Given to: ALIZA ARREAGA Transported by: Wheelchair X Stretcher Transported with: X Nurse Transporter X Patent IV O2 X Correctional Cook TRANSPORTED TO ICU 2 WITH OUT INCIDENT
[2017-08-09 10:46] VITALS: BP 118/61
--- NOTE | 2017-08-09 11:16 | NUR ---
REPORT RECEIVED FROM KYARA IN ED, PT ARRIVED ON UNIT @ 1030 VIA STRETCHER AND TRANSFERRED TO BED, ALERT AND ORIENTED X 4, ORIENTED TO ROOM AND CALL NAVARRO, DENIES PAIN AT THIS TIME. KOROMA IN PLACE DRAINING GREYISH-YELLOW URINE, MONITOIRING DEVICES APPLIED, VITAL SIGNS MEASURED AND RECORDED. BED BATH WITH LUCA CARE FROM BOWEL INCONTINENCE PERFORMED. ENTIRE BACK, GROINS AND RIGHT SIDE REDDENED WITH SKIN SHEARING TO GLUTEUS AND GROINS. WILL CONTINUE TO MONITOR, CALL NAVARRO IN REACH.
[2017-08-09 11:21] LABS: URINE BILIRUBIN - DIPSTICK NEGATIVE (NEGATIVE); URINE BLOOD DIPSTICK MODERATE (NEGATIVE); URINE COLOR YELLOW; URINE GLUCOSE - DIPSTICK NEGATIVE (NEGATIVE); URINE KETONE NEGATIVE (NEGATIVE); URINE NITRITE - DIPSTICK NEGATIVE (Negative); URINE PH 6.5 (4.5-8.0); URINE PROTEIN - DIPSTICK 30 mg/dL (NEG-TRACE); URINE UROBILINOGEN - DIPSTICK 0.2 E.U./dL (0.2)
[2017-08-09 11:23] LABS: URINE CLARITY HAZY; URINE LEUK ESTERASE LARGE (NEGATIVE)
--- NOTE | 2017-08-09 13:14 | NUR ---
ATE MEAL AND RESTING IN BED AT THIS TIME, SPOUSE CALLED TO INQUIRE ABOUT PT, PT GAVE PERMISSION TO GIVE INFORMATION, CALL NAVARRO IN REACH.
--- NOTE | 2017-08-09 13:49 | NUR ---
Drug Selected: Vancomycin Age: 72 years Weight: 105 kg Height: 73 in Gender: Male SCR: 1.5 mg/dl WEIGHT 100KG CRCL=48 Give Vancomycin 1000 mg q12 hrs TROUGH WILL BE 08/10/17 @1930
--- NOTE | 2017-08-09 15:35 | NUR ---
SLEEPING AT THIS TIME, NO SIGN DISCOMFORT, MONITORS IN PLACE, CALL NAVARRO IN REAC.H
[2017-08-09 16:02] VITALS: BP 105/55
--- NOTE | 2017-08-09 16:31 | NUR ---
PT AWAKE AT THIS TIME, FAMILY MEMBERS IN ROOM VISITING.
[2017-08-09 20:20] VITALS: BP 100/64
--- NOTE | 2017-08-09 20:20 | NUR ---
PT TRANSFERED TO FLOOR IN BED FROM ICU. PT RESTING IN BED. DENIES PAIN. RESP EVEN AND UNLABORED. TELE ON. ABD SOFT, ACTIVE BOWEL SOUNDS. KOROMA IN PLACE, YELLOW URINE. LEG STRAP IN PLACE. LEGS ELEVATED, PEDAL PULSES PALPATED BILAT. PT ORIENTED TO ROOM AND CALL LIGHT SYSTEM. VITAL SIGNS OBTAINED BY CALL CENTER SUPPORT REPRESENTATIVE. IV LAC PATENT; FLUSHED WITHOUT DIFFICULTY. IV RH PATENT; FLUSHED WITHOUT DIFFICULTY. SAFETY PRECAUTIONS REINFORCED. FREQUENT ROUNDS MADE. CALL LIGHT WITHIN REACH.
[2017-08-10] VITALS (7 sets, daily range): BP systolic 100–115; BP diastolic 54–67
--- NOTE | 2017-08-10 | NUR ---
PT WOKE TO BE REPOSITIONED. PT DENIES PAIN. RESP EVEN AND UNLABORED. TELE IN PLACE. IV PATENT; NO REDNESS OR EDEMA NOTED. KOROMA PATENT; YELLOW URINE. CALL LIGHT WITHIN REACH.
--- NOTE | 2017-08-10 00:20 | NUR ---
ER PRINTED CIRCUIT BOARD PCB DRAFTSMAN MIA MADE CALL TO FLOOR, UNABLE TO READ RHYTHM. PRINTED CIRCUIT BOARD PCB DRAFTSMAN REQUESTING EKG. PRN EKG FOR CP/ RHYTHM CHANGE OBTAINED. COAL CONVEYOR OPERATOR SIS NOTIFIED OF PRINTED CIRCUIT BOARD PCB DRAFTSMAN REQUEST.
--- NOTE | 2017-08-10 04:13 | NUR ---
PT WOKE FOR MORNING BLOOD WORK. ASSESSMENT UNCHNAGED; RESP EVEN AND UNLABORED. PT DENIES PAIN. TELE IN PLACE. IV PATENT; NO REDNESS OR EDEMA NOTED. KOROMA PATENT; YELLOW URINE. CALL LIGHT WITHIN REACH.
[2017-08-10 05:14] LABS: IMMATURE GRANULOCYTES 0.3 % (0.0-1.0); MEAN CELL VOLUME 91.2 fL CALC (80.0-100.0); MEAN CORPUSCULAR HGB CONC 31.8 g/L CALC (32.0-36.0); NEUT# 4.31 thou/uL (1.82-7.42); RED BLOOD COUNT 3.31 mill/uL (4.70-6.10); RED CELL DISTRI WIDTH 17.6 % (11.5-15.5)
[2017-08-10 05:16] LABS: HEMATOCRIT 30.2 % (39.0-50.0); HEMOGLOBIN 9.6 g/dl (14.0-18.0)
[2017-08-10 05:33] LABS: CREATININE 1.4 mg/dL (0.7-1.3); POTASSIUM 3.4 mmol/l (3.5-5.1)
--- NOTE | 2017-08-10 07:05 | NUR ---
REPORT RECEIVED FROM KASSIE GUZMAN;PT RESTING IN SEMI FOWLERS POSITION;INTRODUCED SELF TO PT AND POC DISCUSSED;PT DENIES ANY PAIN OR NEEDS;RESPIRATIONS APPEAR EVEN AND UNLABORED ON RA;IV SITE PATENT AND TELE MONITOR IN PLACE;ENCOURAGED PT TO CALL FOR ASSISTANCE IF NEEDED;FALL PRECAUTIONS;CALL LIGHT IN REACH;WILL CONTINUE TO MONITOR
--- NOTE | 2017-08-10 08:30 | NUR ---
PT RESTING IN LEFT SIDE LAYING POSITION WITH REYNA BERMAN AT BEDSIDE;VS OBTAINED AND ASSESSMENT COMPLETED;ALERT AND ORIENTED X3;PT DENIES ANY CURRENT PAIN OR NEEDS;RESPIRATIONS APPEAR EVEN AND UNLABORED ON RA,WITH DIMINISHED LUNG SOUNDS NOTED;ABDOMEN DISTENDED/SOFT ON PALPATION AND ACTIVE IN ALL 4 QUADRANTS;WEAK PEDAL PULSES;KOROMA CATHETER PATENT DRAINING CLEAR/YELLOW URINE,LEG STRAP IN PLACE;SHEERING NOTED TO BUTTOCKS AND LOWER BACK,REDDENING TO ABDOMINAL FOLDS AND SKIN TEAR TO RIGHT UPPER ARM SHOULD BE NOTED;PHOTOGRAPHS IN CHART AND DRESSING CDI;TELE MONITOR IN PLACE;#20G TO LAC INFUSING NS @ 50ML/HR AND EMS #18G TO RIGHT HAND FLUSHED AND PATENT;FULL BED BATH PROVIDED WITH CATHETER CARE;PT RE-POSITIONED AT THIS TIME;ALL SAFETY PRECAUTIONS REINFORCED WITH BED IN THE LOWEST POSITION;INSTRUCTED PT TO CALL FOR ASSISTANCE IF NEEDED;CALL LIGHT IN REACH;WILL CONTINUE TO MONITOR
--- NOTE | 2017-08-10 11:25 | NUR ---
PT RESTING IN SEMI FOWLERS POSITION;RESPIRATIONS APPEAR EVEN AND UNLABORED ON RA;IV SITE PATENT INFUSING @ 50ML/HR;TELE MONITOR IN PLACE;PT DENIES ANY PAIN,COFFEE PROVIDED PER REQUEST;FALL PRECAUTIONS IN PLACE WITH CALL LIGHT IN REACH;WILL CONTINUE TO MONITOR
--- NOTE | 2017-08-10 13:27 | NUR ---
I SPOKE WITH ENMA FROM OFFICE TO VERIFY CONSULTATION @ 4361. I WILL WAIT FOR TO CALL AND VERIFY THE CONSULTATION.
--- NOTE | 2017-08-10 14:30 | NUR ---
PT RE-POSITIONED ON TO AIR MATTRESS FOR COMFORT,PT TOLERATED TRANSFER WELL;IV SITE REMAINS PATENT INFUSING @ 50ML/HR;PT DENIES ANY CURRENT NEEDS;WILL CONTINUE TO MONITOR
--- NOTE | 2017-08-10 16:50 | NUR ---
PT APPEARS TO BE SLEEPING IN SEMI FOWLERS POSITION ON AIR MATTRESS BED;RESPIRATIONS APPEAR EVEN AND UNLABORED ON RA;NO S/S OF DISTRESS NOTED;KOROMA CATHETER PATENT DRAINING CLEAR/YELLOW URINE;FALL PRECAUTIONS IN PLACE WITH BED IN THE LOWEST POSITION;CALL LIGHT IN REACH;WILL CONTINUE TO MONITOR
--- NOTE | 2017-08-10 17:01 | NUR ---
ANAHY RECEIVED FROM DEANNE FINLEY (DAUGHTER IN LAW) UPDATING ON POC
--- NOTE | 2017-08-10 18:18 | NUR ---
EMS #18G TO RIGHT HAND REMOVED WITH CATHTER INTACT DUE TO EXPIRATION DATE
--- NOTE | 2017-08-10 19:30 | NUR ---
PATIENT RESTING IN BED ON AIR MATTRESS-AWAKE ALERT AND ORIENTEDX3. PATIENT WITH IV SITE TO LEFT AC INTACT WITH IVF NS PATENT AND INFUSING AT 50CC/HR. SITE APPEARS HEALTHY AT THIS TIME. KOROMA CATH PATENT AND DRAINING CLOUDY YELLOW URINE. HEEL PROTECTORS IN PLACE AND FEET ELEVATED ON PILLOWS. NO COMPLAINTS AT THIS TIME. CALL LIGHT IN REACH. WILL CONT TO MONITOR.
--- NOTE | 2017-08-10 21:45 | NUR ---
PATIENT RESTING IN BED-TURNED AND REPOSITIONED-INCONT OF SMALL AMT OF SOFT BROWN STOOL. LUCA-CARE AND KOROMA CATH CARE DONE WITH SOAP AND H2O. BUTT PASTE APPLIED TO AFFECTED AREA. BACK IS ALSO RED WITH SOME AREAS OF BLEEDING NOTED. LOTION APPLIED TO AFFECTED AREAS. BED LINENS CHANGED AND PATIENT POSITIONED ON LEFT SIDE. WATCHING TV. CALL LIGHT IN REACH. WILL CONT TO MONITOR.
--- NOTE | 2017-08-11 | NUR ---
APPEARS SLEEPING AT THIS TIME WITH EYES CLOSED. RESP ARE EVEN AND UNLABORED. CALL LIGHT IN REACH. WILL CONT TO MONITOR.
[2017-08-11 04:09] VITALS: BP 123/70
--- NOTE | 2017-08-11 04:27 | NUR ---
PATIENT RESTING IN BED AND APPEARS SLEEPING WITH EYES CLOSED. RESP EVEN AND UNLABORED. KOROMA PATENT AND DRAINING YELLOW URINE. IVF PATENT AND INFUSING AT 50CC/HR VIA LEFT AC SITE. CALL LIGHT IN REACH. WILL CONT TO MONITOR.
[2017-08-11 04:43] LABS: HEMATOCRIT 29.6 % (39.0-50.0); HEMOGLOBIN 9.4 g/dl (14.0-18.0); IMMATURE GRANULOCYTES 0.4 % (0.0-1.0); MEAN CELL VOLUME 90.8 fL CALC (80.0-100.0); MEAN CORPUSCULAR HGB 28.8 pG CALC (26.0-32.0); MEAN CORPUSCULAR HGB CONC 31.8 g/L CALC (32.0-36.0); NEUT# 3.05 thou/uL (1.82-7.42); RED BLOOD COUNT 3.26 mill/uL (4.70-6.10); RED CELL DISTRI WIDTH 17.5 % (11.5-15.5)
[2017-08-11 05:21] LABS: ANION GAP 8 (6-22 (CALC)); BUN 20 mg/dL (8-23); BUN/CREATININE RATIO 15 (12-20 (CALC)); CARBON DIOXIDE 26 mmol/l (22-30); CHLORIDE 108 mmol/l (95-108); CREATININE 1.3 mg/dL (0.7-1.3); GFR 54 ML/MIN (>=60 (CALC)); GFR FOR AFR.AMER. > 60 ML/MIN (>=60 (CALC)); POTASSIUM 3.5 mmol/l (3.5-5.1); SODIUM 138 mmol/l (137-146)
--- NOTE | 2017-08-11 05:58 | NUR ---
PATIENT RESTING IN BED-C/O RESTLESS LEGS DURING THE NIGHT. WILL PASS THIS INFO ON IN REPORT THIS MORNING. CALL LIGHT IN REACH. WILL CONT TO MONITOR.
--- NOTE | 2017-08-11 07:00 | NUR ---
REPORT RECEIVED FROM WHITLEY HOGAN;PT RESTING IN SEMI FOWLERS POSITION ON AIR MATTRESS;INTRODUCED SELF TO PT AND POC DISCUSSED;PT REPORTS NO PAIN OR DISCOMFORTS AT THIS TIME BUT DOES EXPLAIN THAT HE HAS BEEN HAVE RESTLESS LEGS THROUGHOUT THE NIGHT,MD TO BE NOTIFIED;RESPIRATIONS REMAIN EVEN AND UNLABORED ON RA;FALL PRECAUTIONS IN PLACE WITH BED IN THE LOWEST POSITION;CALL LIGHT IN REACH;WILL CONTINUE TO MONITOR
--- NOTE | 2017-08-11 08:30 | NUR ---
PT RESTING IN SEMI FOWLERS POSITION ON AIR MATTRESS;VS OBTAINED AND ASSESSMENT COMPLETED;PT DENIES ANY CURRENT PAIN OR DISCOMFORTS;RESPIRATIONS EVEN AND UNLABORED ON RA,DIMINISHED LUNG SOUNDS;ABDOMEN SOFT ON PAPLATION AND ACTIVE IN ALL 4 QUADRANTS;WEAK PEDAL PULSES;KOROMA CATHETER PATENT DRAINING CLEAR/YELLOW URINE,LEG STRAP IN PLACE;TELE MONITORING;#20G TO LAC INFUSING NS @ 50ML/HR WITH EASE,SITE APPEARS HEALTHY;SKIN TEAR DRESSING TO RIGHT UPPER ARM CHANGED AND NEW NON-AHESIVE DRESSING APPLIED;SHEERING NOTED TO UPPER/LOWER BACK;FULL BED BATH PROVIDED/LINENS CHANGED AND PT RE-POSITIONED TO LEFT SIDE LAYING;PT DENIES ANY OTHER NEEDS AT THIS TIME;ENCOURAGED TO CALL FOR ASSISTANCE IF NEEDED;FALL PRECAUTIONS IN PLACE;WILL CONTINUE TO MONITOR
[2017-08-11 08:37] VITALS: BP 111/46
[2017-08-11 11:13] VITALS: BP 141/70
--- NOTE | 2017-08-11 11:45 | NUR ---
PT RESTING IN LEFT SIDE LAYING POSITION;RESPIRATIONS EVEN AND UNLABORED ON RA;PT DENIES ANY CURRENT PAIN OR NEEDS;IV SITE PATENT INFUSING TO LAC WITH EASE;KOROMA CATHETER DRAINING TO GRAVITY AND TELE MONITOR IN PLACE;PT ENCOURAGED TO CALL FOR ASSISTANCE IF NEEDED;FALL PRECAUTIONS IN PLACE;WILL CONTINUE TO MONITOR
[2017-08-11 15:43] VITALS: BP 116/63
--- NOTE | 2017-08-11 17:30 | NUR ---
PT RESTING IN SEMI FOWLERS POSITION;PT DENIES ANY CURRENT NEEDS;RESPIRATIONS APPEAR EVEN AND UNLABORED ON RA;IV SITE AND KOROMA CATHETER REMAIN PATENT;RE-ENCOURAGED TO CALL FOR ASSISTANCE IF NEEDED;CALL LIGHT IN REACH;WILL CONTINUE TO MONITOR
--- NOTE | 2017-08-11 18:12 | NUR ---
DR. HALE TO REMOVE URETHRAL STENT AT BEDSIDE TOMORROW 08/12/17 @ 0500,CONSENT TO BE OBTAINED. UROLOGY CART PLACED IN SUPPY CLOSET IN PREPARATION FOR PROCEDURE IN THE MORNING
[2017-08-11 19:00] VITALS: BP 128/64
--- NOTE | 2017-08-11 19:30 | NUR ---
PATIENT RESTING IN BED-AWAKE ALERT AND ORIENTEDX3 WATCHING TV. IVF NS PATENT AND INFUSING VIA LEFT AC AT 50CC/HR. SITE APPEARS HEALTHY AT THIS TIME. KOROMA PATENT AND DRAINING CLOUDY YELLOW URINE. PATIENT ON AIR MATTRESS. NO COMPLAINTS AT THIS TIME. SAFETY PRECAUTIONS REINFORCED. CALL LIGHT IN REACH. WILL CONT TO MONITOR.
--- NOTE | 2017-08-11 22:00 | NUR ---
PATIENT TURNED AND REPOSITONED. LUCA-CARE AND KOROMA CARE DONE WITH SOAP AND WATER. NYSTATIN POWDER APPLIED TO ABD FOLDS AND PERINEAL AREA. LINDA BUTT PASTE APPLIED TO BUTTOCKS AND PERIANAL REGION. ROPINIROLE GIVEN ORDERED FOR RESTLESS LEGS. CALL LIGHT IN REACH. WILL CONT TO MONITOR.
--- NOTE | 2017-08-11 23:25 | NUR ---
PATIENT APPEARS SLEEPING AT THIS TIME WITH SHEET COVERING HIS HEAD. CALL LIGHT IN REACH. WILL CONT TO MONITOR.
[2017-08-11 23:36] VITALS: BP 127/73
--- NOTE | 2017-08-12 03:39 | NUR ---
PATIENT APPEARS SLEEPING WITH SHEET OVER HIS HEAD. IVF PATENT AND INFUSING AT 50CC/HR. SITE APPEARS HEALTHY. KOROMA PATENT AND DRAINING CLOUDY URINE. URO CART ON THE FLOOR FOR DR. GANN THIS MORNING, CALL LIGHT IN REACH. WILL CONT TO MONITOR.
[2017-08-12 04:28] LABS: HEMATOCRIT 29.9 % (39.0-50.0); HEMOGLOBIN 9.6 g/dl (14.0-18.0); IMMATURE GRANULOCYTES 0.5 % (0.0-1.0); MEAN CELL VOLUME 90.6 fL CALC (80.0-100.0); MEAN CORPUSCULAR HGB 29.1 pG CALC (26.0-32.0); MEAN CORPUSCULAR HGB CONC 32.1 g/L CALC (32.0-36.0); NEUT# 2.87 thou/uL (1.82-7.42); RED BLOOD COUNT 3.3 mill/uL (4.70-6.10); RED CELL DISTRI WIDTH 17.2 % (11.5-15.5)
[2017-08-12 04:49] LABS: CREATININE 1.4 mg/dL (0.7-1.3); POTASSIUM 3.8 mmol/l (3.5-5.1)
[2017-08-12 05:09] VITALS: BP 137/47
--- NOTE | 2017-08-12 06:32 | NUR ---
DR. HALE HERE FOR REMOVAL OF RIGHT URETERAL STENT AT BEDSIDE. CONSENT SIGNED. KOROMA CATH REMOVED. PROCEDURE DONE BY DR. GANN AFTER PREPPED WITH LIDOCAINE UROJECT JELLY BY . PATIENT TOLERATED PROCEDURE WELL AND STENT WAS REMOVED. NEW #16 FREANCH KOROMA CATH INSERTED WITHOUT ANY DIFFICULTY AND PATIENT TOLERATED WELL. DRAINING CLEAR FLUID. PATIENT WAS CLEANED UP AND NYSTATIN POWDER WAS APPLIED TO ABD FOLDS AND INGUINAL FOLDS. LINEN PADS WERE CHANGED AND PATIENT REPOSITIONED ON HIS LEFT SIDE. PATIENT WITH NO COMPLAINTS. OR CALLED AND SPOKE WITH FERNANDA TO [employer] [facility] C[facility] AND [employer]QUIPMENT. CALL LIGHT IN REACH. WILL CONT TO MONITOR.
--- NOTE | 2017-08-12 07:20 | NUR ---
REPORT RECEIVED FROM WHITLEY HOGAN;PT RESTING IN SUPINE POSITION;INTRODUCED SELF TO PT AND POC DISCUSSED;RESPIRATIONS EVEN AND UNLABORED ON RA;PT DENIES ANY CURRENT NEEDS;FALL PRECAUTIONS IN PLACE;ENCOURAGED PT TO CALL FOR ASSISTANCE IF NEEDED;CALL LIGHT IN REACH;WILL CONTINUE TO MONITOR
--- NOTE | 2017-08-12 09:35 | NUR ---
PT RESTING IN SEMI FOWLERS POSITION ON AIR MATTRESS;PT DENIES ANY PAIN OR DISCOMFORTS;VS OBTAINED AND ASSESSMENT COMPLETED;RESPIRATIONS APPEAR EVEN AND UNLABORED ON RA,DIMINISHED LUNG SOUNDS;ABDOMEN SOFT ON PALPATION AND ACTIVE IN ALL 4 QUADRANTS;WEAK PEDAL PULSES;TELE MONITOR IN PLACE;#20G TO LAC INFUSING NS @ 50ML/HR,SITE APPEARS HEALTHY;KOROMA CATHETER IN PLACE DRAINING CLEAR/YELLOW URINE,LEG STRAP NOTED;DRESSING CHANGED TO RIGHT UPPER ARM SKIN TEAR,PT TOLERATED WELL;REDDENING NOTED TO ABDOMINAL FOLDS,GROIN,AND BUTTOCKS; PT DENIES ANY NEEDS AT THIS TIME,ENCOURAGED TO CALL FOR ASSISTANCE IF NEEDED;FALL PRECAUTIONS IN PLACE WITH CALL LIGHT IN REACH;WILL CONTINUE TO MONITOR
[2017-08-12 09:36] VITALS: BP 133/74
[2017-08-12] MEDS ORDERED: ROPINIROLE0.25 MG PO (11:00)
[2017-08-12] MEDS ORDERED: NYSTOP100000 UNI TOP (11:00)
[2017-08-12] MEDS ORDERED: KEFLEX500 MG PO (11:00)
--- NOTE | 2017-08-12 12:15 | NUR ---
PT RESTING IN SEMI FOWLERS POSITION EATING LUNCH;PT DENIES ANY CURRENT PAIN OR NEEDS;DISCHARGE POC DISCUSSED AND PT VERBALIZES UNDERSTANDING;RESPIRATIONS EVEN AND UNLABORED ON RA;IV SITE PATENT INFUSING @ 50ML/HR;TELE MONITOR IN PLACE;ENCOURAGED TO CALL FOR ASSISTANCE IF NEEDED;CALL LIGHT IN REACH;WILL CONTINUE TO MONITOR
[2017-08-12 12:20] VITALS: BP 137/71
--- NOTE | 2017-08-12 14:00 | NUR ---
PT RESTING IN LEFT SIDE LAYING POSITION ON AIR MATTRESS WATCHING TV;RESPIRATIONS EVEN AND UNLABORED ON RA;IV SITE PATENT INFUSING @80ML/HR;TELE MONITOR IN PLACE;KOROMA CATHETER DRAINING TO GRAVITY WITH EASE;PT VOICES NO CURRENT PAIN OR NEEDS;FALL PRECAUTIONS IN PLACE WITH CALL LIGHT IN REACH;WILL CONTINUE TO MONITOR
--- NOTE | 2017-08-12 14:15 | NUR ---
PT TO ULTRASOUND IN STABLE CONDITION
--- NOTE | 2017-08-12 15:25 | NUR ---
PT ARRIVED BACK FROM US IN STABLE CONDITION
--- NOTE | 2017-08-12 16:00 | NUR ---
PT RESTING IN LEFT SIDE LAYING POSITION ON AIR MATTRESS WATCHING TV;RESPIRATIONS EVEN AND UNLABORED ON RA;IV SITE REMAINS PATENT INFUSING @ 50ML/HR;TELE MONITOR IN PLACE;KOROMA CATHETER DRAINING TO GRAVITY WITH EASE;PT VOICES NO COMPLAINTS OF PAIN OR NEEDS;FALL PRECAUTIONS IN PLACE WITH CALL LIGHT IN REACH;WILL CONTINUE TO MONITOR
[2017-08-12 16:41] VITALS: BP 135/71
[2017-08-12 19:00] VITALS: BP 142/68
--- NOTE | 2017-08-12 19:47 | NUR ---
PATIENT RESTING IN BED-FINISHED DINNER-NO COMPLAINTS AT THIS TIME. PATIENT IS FOR DISCHARGE TO HOME TONIGHT-ARRANGEMENT BEING SET UP BY CASE MANAGEMENT. KOROMA CATH PATENT AND DRAINING YELLOW URINE. ALERT AND ORIENTEDX3. CALL LIGHT IN REACH. WILL CONT TO MONITOR.
--- NOTE | 2017-08-12 21:43 | NUR ---
IV SITE TO LEFT AC DC'ED WITH CATH INTACT. DISCHARGE INSTRUCTIONS AND RX'S GIVEN TO PATIENT. PATIENT BEING DISCHARGED WITH KOROMA CATH INTACT. [facility]IENT BEING DISCHARGED HOME VIA STRETCHER BY [facility].
--- NOTE | 2017-08-12 21:58 | NUR ---
Discharge instructions given. Patient verbalizes understanding of same. Discharged in fair condition via Medical Transport to Home with *Other. All belongings sent with pt.PATIENT DISCHARGED WITH KOROMA CATH INTACT AND DRAINING YELLOW URINE. PATIENT DISCHARGE INSTRUCTIONS AND DISCHARGE PERSCRIPTIONS SENT WITH PATIENT AND [facility] PERSONEL IN [facility].
== END 2017-08-12 21:45 | DRG 698 ==
LOC: ED 07:01 → ED-I 09:31 → ED 09:47 → ICU 09:48 → MS2 09:48
PROVIDERS: Family Medicine; Nurse Practitioner; Nurse Practitioner Family; ADMIT Internal Medicine; ATTEND Internal Medicine
PROC: 0T2BX0Z Change Drainage Device in Bladder, External Approach (ICD-10-PCS; principal; 2017-08-09)
PROC: 0TP98DZ Removal of Intraluminal Device from Ureter, Via Natural or Artificial Opening Endoscopic (ICD-10-PCS; 2017-08-12)
DX: T83.511A Infection and inflammatory reaction due to indwelling urethral catheter, initial encounter (principal); A41.9 Sepsis, unspecified organism; I13.0 Hypertensive heart and chronic kidney disease with heart failure and stage 1 through stage 4 chronic kidney disease, or unspecified chronic kidney disease; I50.22 Chronic systolic (congestive) heart failure; I42.9 Cardiomyopathy, unspecified; B37.49 Other urogenital candidiasis; N39.0 Urinary tract infection, site not specified; N18.3 Chronic kidney disease, stage 3 (moderate); L89.102 Pressure ulcer of unspecified part of back, stage 2; J44.9 Chronic obstructive pulmonary disease, unspecified; E78.5 Hyperlipidemia, unspecified; I48.91 Unspecified atrial fibrillation; M19.90 Unspecified osteoarthritis, unspecified site; I71.4 Abdominal aortic aneurysm, without rupture; N40.1 Benign prostatic hyperplasia with lower urinary tract symptoms; R33.8 Other retention of urine; I25.10 Atherosclerotic heart disease of native coronary artery without angina pectoris; G25.81 Restless legs syndrome; K59.09 Other constipation; B95.4 Other streptococcus as the cause of diseases classified elsewhere; Y84.6 Urinary catheterization as the cause of abnormal reaction of the patient, or of later complication, without mention of misadventure at the time of the procedure; Z87.11 Personal history of peptic ulcer disease; Z98.1 Arthrodesis status; Z95.810 Presence of automatic (implantable) cardiac defibrillator; Z95.1 Presence of aortocoronary bypass graft; Z95.5 Presence of coronary angioplasty implant and graft; Z87.891 Personal history of nicotine dependence; Z74.01 Bed confinement status; Z87.442 Personal history of urinary calculi; Z96.0 Presence of urogenital implants
CPT/HCPCS: G0378; Q9967

== ENCOUNTER 2017-10-24 15:39 | Inpatient (IN) | payer MEDICARE ==
[~2017-10-24] VITALS: Ht 182.9 cm; Wt 109.1 kg
[~2017-10-24 15:39] MED LIST changes: +KEFLEX500 MG PO; +NYSTOP100000 UNI TOP; +ROPINIROLE0.25 MG PO
[2017-10-24 16:08] LABS: HEMOGLOBIN 12.2 g/dl (14.0-18.0); MEAN CELL VOLUME 86.4 fL CALC (80.0-100.0); MEAN CORPUSCULAR HGB 27.7 pG CALC (26.0-32.0); MEAN CORPUSCULAR HGB CONC 32.1 g/L CALC (32.0-36.0); NEUT# 10.02 thou/uL (1.82-7.42); RED BLOOD COUNT 4.4 mill/uL (4.70-6.10); RED CELL DISTRI WIDTH 15.8 % (11.5-15.5)
[2017-10-24 16:09] LABS: URINE BILIRUBIN - DIPSTICK NEGATIVE (NEGATIVE); URINE BLOOD DIPSTICK LARGE (NEGATIVE); URINE COLOR YELLOW; URINE GLUCOSE - DIPSTICK NEGATIVE (NEGATIVE); URINE KETONE NEGATIVE (NEGATIVE); URINE NITRITE - DIPSTICK NEGATIVE (Negative); URINE PROTEIN - DIPSTICK TRACE mg/dL (NEG-TRACE); URINE UROBILINOGEN - DIPSTICK 0.2 E.U./dL (0.2)
[2017-10-24 16:40] LABS: ALBUMIN 3.3 g/dL (3.2-5.0); ALKALINE PHOSPHATASE 74 u/l (38-126); ANION GAP 15 (6-22 (CALC)); BILIRUBIN, TOTAL 0.5 mg/dL (0.0-1.4); BUN 38 mg/dL (8-23); BUN/CREATININE RATIO 25 (12-20 (CALC)); CARBON DIOXIDE 28 mmol/l (22-30); CHLORIDE 102 mmol/l (95-108); CREATININE 1.6 mg/dL (0.7-1.3); GFR 42 ML/MIN (>=60 (CALC)); GFR FOR AFR.AMER. 51 ML/MIN (>=60 (CALC)); POTASSIUM 4.2 mmol/l (3.5-5.1); SGOT/AST 19 u/l (19-48); SGPT/ALT 18 u/l (11-66); SODIUM 140 mmol/l (137-146); TOTAL PROTEIN 6.1 g/dL (6.3-8.2)
[2017-10-24 16:47] LABS: URINE BACTERIA FEW hpf; URINE CLARITY CLOUDY; URINE LEUK ESTERASE MODERATE (NEGATIVE); URINE RBC TNTC RBC/hpf (0-5); URINE SQUAMOUS EPITHELIAL CELL FEW EPI/hpf (0-FEW); URINE WBC TNTC WBC/hpf (0-5)
[2017-10-24 16:52] LABS: MYOGLOBIN 27 ng/mL (0 - 121)
[2017-10-24 17:11] LABS: INTERNATIONAL NORMALIZED RATIO 0.9 RATIO (0.7-1.3); PROTHROMBIN TIME 10.5 SECONDS (9.0-12.5)
[2017-10-24 18:45] VITALS: BP 146/78
[2017-10-25 00:15] VITALS: BP 154/76
[2017-10-25 04:15] VITALS: BP 136/57
[2017-10-25 06:25] LABS: HEMATOCRIT 36.2 % (39.0-50.0); HEMOGLOBIN 11.8 g/dl (14.0-18.0); MEAN CELL VOLUME 85.8 fL CALC (80.0-100.0); MEAN CORPUSCULAR HGB CONC 32.6 g/L CALC (32.0-36.0); RED BLOOD COUNT 4.22 mill/uL (4.70-6.10); RED CELL DISTRI WIDTH 15.5 % (11.5-15.5)
[2017-10-25 06:37] LABS: ANION GAP 13 (6-22 (CALC)); BUN 39 mg/dL (8-23); BUN/CREATININE RATIO 29 (12-20 (CALC)); CARBON DIOXIDE 28 mmol/l (22-30); CHLORIDE 103 mmol/l (95-108); CREATININE 1.3 mg/dL (0.7-1.3); GFR 54 ML/MIN (>=60 (CALC)); GFR FOR AFR.AMER. > 60 ML/MIN (>=60 (CALC)); SODIUM 140 mmol/l (137-146)
[2017-10-25 07:50] VITALS: BP 124/56
[2017-10-25 11:00] VITALS: BP 138/73
[2017-10-25 16:00] VITALS: BP 103/62
[2017-10-25 19:41] VITALS: BP 131/48
[2017-10-26 04:19] VITALS: BP 132/61
[2017-10-26 05:31] LABS: HEMATOCRIT 35.7 % (39.0-50.0); HEMOGLOBIN 11.6 g/dl (14.0-18.0); MEAN CELL VOLUME 85.6 fL CALC (80.0-100.0); MEAN CORPUSCULAR HGB 27.8 pG CALC (26.0-32.0); MEAN CORPUSCULAR HGB CONC 32.5 g/L CALC (32.0-36.0); RED BLOOD COUNT 4.17 mill/uL (4.70-6.10); RED CELL DISTRI WIDTH 15.3 % (11.5-15.5)
[2017-10-26 05:47] LABS: CREATININE 1.7 mg/dL (0.7-1.3); MAGNESIUM 2.3 mg/dL (1.6-2.3); POTASSIUM 3.7 mmol/l (3.5-5.1)
[2017-10-26 09:39] VITALS: BP 135/72
[2017-10-26 11:30] VITALS: BP 138/66
[2017-10-26 16:15] VITALS: BP 124/41
[2017-10-26 20:00] VITALS: BP 122/49
[2017-10-27 00:46] VITALS: BP 137/74
[2017-10-27 04:50] VITALS: BP 119/58
[2017-10-27 05:02] LABS: HEMATOCRIT 36.5 % (39.0-50.0); HEMOGLOBIN 11.5 g/dl (14.0-18.0); MEAN CELL VOLUME 85.7 fL CALC (80.0-100.0); MEAN CORPUSCULAR HGB CONC 31.5 g/L CALC (32.0-36.0); RED BLOOD COUNT 4.26 mill/uL (4.70-6.10); RED CELL DISTRI WIDTH 15.5 % (11.5-15.5)
[2017-10-27 05:11] LABS: CREATININE 1.5 mg/dL (0.7-1.3); POTASSIUM 3.8 mmol/l (3.5-5.1)
[2017-10-27 07:50] VITALS: BP 116/61
[2017-10-27 11:45] VITALS: BP 120/57
[2017-10-27] MEDS ORDERED: VANTIN200 M1 PO (13:08)
[2017-10-27] MEDS ORDERED: GUAIFENESI100 MG/51 PO (13:08)
[2017-10-27] MEDS ORDERED: PREDNISONE10 MG PO (13:08)
[2017-10-27] MEDS ORDERED: IPRATROPIU0.5 MG/3 M IN (13:08)
[2017-10-27] MEDS ORDERED: DOXYCYCL HYC100 MG PO (13:08)
== END 2017-10-27 14:20 | disposition home health service (06) | DRG 698 ==
LOC: ED 15:39 → ED-I 17:58 → ED 18:16 → MS2 18:17
PROVIDERS: Emergency Medicine; ADMIT Internal Medicine; ATTEND Internal Medicine
DX: T83.518A Infection and inflammatory reaction due to other urinary catheter, initial encounter (principal); J15.212 Pneumonia due to Methicillin resistant Staphylococcus aureus; N39.0 Urinary tract infection, site not specified; I13.0 Hypertensive heart and chronic kidney disease with heart failure and stage 1 through stage 4 chronic kidney disease, or unspecified chronic kidney disease; Y84.6 Urinary catheterization as the cause of abnormal reaction of the patient, or of later complication, without mention of misadventure at the time of the procedure; I50.9 Heart failure, unspecified; N18.3 Chronic kidney disease, stage 3 (moderate); N40.1 Benign prostatic hyperplasia with lower urinary tract symptoms; R33.8 Other retention of urine; M19.90 Unspecified osteoarthritis, unspecified site; I48.91 Unspecified atrial fibrillation; E78.5 Hyperlipidemia, unspecified; K21.9 Gastro-esophageal reflux disease without esophagitis; I25.10 Atherosclerotic heart disease of native coronary artery without angina pectoris; M54.12 Radiculopathy, cervical region; L89.159 Pressure ulcer of sacral region, unspecified stage; M21.372 Foot drop, left foot; M21.371 Foot drop, right foot; R53.81 Other malaise; B96.4 Proteus (mirabilis) (morganii) as the cause of diseases classified elsewhere; Z87.440 Personal history of urinary (tract) infections; Z87.891 Personal history of nicotine dependence; Z95.1 Presence of aortocoronary bypass graft; Z95.5 Presence of coronary angioplasty implant and graft; Z95.810 Presence of automatic (implantable) cardiac defibrillator; Z74.01 Bed confinement status
CPT/HCPCS: J0692

== ENCOUNTER 2017-11-18 13:34 | Inpatient (IN) | payer MEDICARE ==
[~2017-11-18] VITALS: Ht 185.4 cm; Wt 108.6 kg
[~2017-11-18 13:34] MED LIST changes: +GUAIFENESI100 MG/51 PO; +IPRATROPIU0.5 MG/3 M IN; +PREDNISONE10 MG PO; +VANTIN200 M1 PO
[2017-11-18 13:40] VITALS: BP 129/81
--- NOTE | 2017-11-18 13:45 | NUR ---
PT DIRECT ADMIT FROM HOME () VIA [facility] ASSIST INTO BED PT IS BED RIDDEN AT HOME X 3 YEARS (PER PT IT IS FROM WEAKNESS ADN NO OTHER DIAGNOSIS FOR BED RIDDEN) PT HAS REDNESS/DENUDED AND FLAKING SKIN NOTED TO COCCYX, SACRUM AND BUTTOCKS, PT ALSO HAS REDNESS AND FIRMNESS TO RIGHT FLANK (REASON FOR ADMISSION) PT ALSO HAS DENUDED SKIN NOTED TO SCROTUM, PT HAS DRY SCALING SKIN NOTED TO FACE AND HAS FRAGILE SKIN TO ALL EXTREMETIES WITH SCATTERED SMALL KERATOSIS'S ALSO SCATTERED DISCOLORED AREAS NOTED TO BILATERAL UE, PT HAS FOOT DROP NOTED TO LEFT FOOT AND MINIMAL MOVEMENT TO BILATERAL LE, PPPB, DRY SCALING SKIN NOTED TO BLE AND BACK, PT STATES HE HAS BEEN FIGHTING THIS INFECTION / REDNESS TO HI FLANK AND BACK FOR "AWHILE NOW" KOROMA CATHETER INTACT PT HAS DOCK OPERATIONS SUPERVISOR KOROMA FOR URINARY RETENTION, CHANGED YESTERDAY BY HOME HEALTH PER PT, URINE IS CLEAR YELLOW WITH SEDIMENT NOTED CATH STRAP IN PLACE, TRAPEZE PLACED FOR PT MOBILITY, SPECIALITY MATTRESS ORDERED FROM [facility], WITH PLANNED DELIVERY TOMORROW, PT AWARE, LUNGS ARE CLEAR WITH NO SOB OR DISTRESS NOTED, ABD DISTENDED BUT SOFT, PT STATES LAST BM 4 DAYS AGO, PT STATES THATS NOT UNUSUAL FOR HIM, NO EDEMA NOTED, ORIENTED TO ROOM AND UNIT, CCOMFORT MEASURES PROVIDED, SAFETY MEASURES INTRODUCED, WILL CONTINUE TO MONITOR.
--- NOTE | 2017-11-18 14:30 | NUR ---
22G INTO LEFT AC ON 3RD ATTEMPT GOOD ASPIRATE NOTED. PT TOLERATED WELL IV ABT STARTED ORDERED, URINE OBTAINED FROM CATH AND SENT FOR TESTING ORDERED, LAB AT BEDSIDE EARLIER FOR LAB DRAW ORDERED.
[2017-11-18 14:45] LABS: HEMATOCRIT 36.1 % (39.0-50.0); HEMOGLOBIN 11.6 g/dl (14.0-18.0); IMMATURE GRANULOCYTES 0.7 % (0.0-5.0); MEAN CORPUSCULAR HGB CONC 32.1 g/L CALC (32.0-36.0); NEUT# 4.11 thou/uL (1.82-7.42); RED BLOOD COUNT 4.15 mill/uL (4.70-6.10); RED CELL DISTRI WIDTH 16.5 % (11.5-15.5)
[2017-11-18 15:05] LABS: ALBUMIN 3.1 g/dL (3.2-5.0); BILIRUBIN, TOTAL 0.6 mg/dL (0.0-1.4); CREATININE 1.4 mg/dL (0.7-1.3); POTASSIUM 3.3 mmol/l (3.5-5.1); TOTAL PROTEIN 5.6 g/dL (6.3-8.2)
[2017-11-18 15:49] VITALS: BP 135/77
--- NOTE | 2017-11-18 16:00 | NUR ---
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 PT PARTIALLY BATHED RELATED TO DRY SCALY POSDER RESIDUE IN GROIN CREASES AND AROUND SCROTUM, PT STATES HIS "POWDERS ME UP" WHEN SHE WASHES ME UP.
[2017-11-18 16:45] LABS: URINE BILIRUBIN - DIPSTICK NEGATIVE (NEGATIVE); URINE BLOOD DIPSTICK TRACE-INTACT (NEGATIVE); URINE COLOR YELLOW; URINE GLUCOSE - DIPSTICK NEGATIVE (NEGATIVE); URINE KETONE NEGATIVE (NEGATIVE); URINE PH 7.5 (4.5-8.0); URINE PROTEIN - DIPSTICK NEGATIVE (NEG-TRACE); URINE UROBILINOGEN - DIPSTICK 0.2 E.U./dL (0.2)
[2017-11-18 16:48] LABS: URINE CLARITY SL CLOUDY; URINE LEUK ESTERASE LARGE (NEGATIVE); URINE NITRITE - DIPSTICK POSITIVE (Negative)
[2017-11-18 16:59] LABS: URINE WBC 20-50 WBC/hpf (0-5); URINE YEAST MANY hpf
--- NOTE | 2017-11-18 18:30 | NUR ---
PT RESTING, TOLERATED PM MEAL W/O INCIDENT, CALL NAVARRO WITHIN REACH, SAFETY MEASURES REINFORCED, WILL CONTINUE TO MONITOR.
[2017-11-18 19:30] VITALS: BP 130/65
--- NOTE | 2017-11-18 19:30 | NUR ---
PATIENT RESTING IN BED AWAKE ALERT AND ORIENTEDX3. PATIENT WITH NO COMPLAINTS AT THIS TIME. KOROMA CATH PATENT AND DRAINING YELLOW URINE. TELE MONITOR IN PLACE. SALINE LOCK TO LEFT AC INTACT AND APPEARS HEALTHY AT THIS TIME. MULTIPLE SKIN ISSUES WILL ASSESS FURTHER AT LATER TIME. PATIENT ON CONTACT PRECAUTIONS FOR H/O MRSA. SAFETY PRECAUTIONS REINFORCED.CALL LIGHT IN REACH.WILL CONT TO MONITOR.
--- NOTE | 2017-11-18 23:00 | NUR ---
PATIENT RESTING IN BED-COMPLETE BED BATH WAS GIVEN WITH KOROMA CARE DONE WITH SOAP AND WATER. PATIENT WITH MULTIPLE SKIN ISSUES INCLDING HIS ENTIRE BACK, RIGHT FLANK, RIGHT BUTTOCKS, AND GROIN. PHOTOS TAKEN AND PLACED IN CHART. AQUACEL FOAM ADHESIVE DRESSING APPLIED TO BUTTOCKS/SACRAL AREA. PATIENT WAS MAX TRANSFER TO [facility] WITH [facility] AIR MATTRESS. TURNED AND REPOSITIONED ON LEFT SIDE-SUPPORTED WITH PILLOWS. PATIENT MEDICATED FOR SLEEP WITH ATIVAN 0.5MG PO. PATIENT DID HAVE SMALL FORMED BROWN STOOL WHEN BEING BATHED. CALL LIGHT IN REACH. WILL CONT TO MONITOR.
[2017-11-18 23:43] VITALS: BP 125/70
--- NOTE | 2017-11-19 03:19 | NUR ---
PATIENT TURNED AND REPOSITIONED ON RIGHT SIDE. PILLOWS IN PLACE FOR SUPPORT. KOROMA PATENT AND DRAINING YELLOW URINE. CALL LIGHT IN REACH. WILL CONT TO MONITOR.
[2017-11-19 04:10] VITALS: BP 131/76
--- NOTE | 2017-11-19 05:07 | NUR ---
PATIENT POSITIONED ON HIS SIDE. IV MAXIPIME HUNG AND INFUSING VIA LEFT AC SITE. SITE IS HEALTHY AT THIS TIME. KOROMA PATENT AND DRAINING YELLOW URINE. CALL LIGHT IN REACH. WILL CONT TO MONITOR.
[2017-11-19 05:56] LABS: ALBUMIN 2.8 g/dL (3.2-5.0); BILIRUBIN, TOTAL 0.7 mg/dL (0.0-1.4); CREATININE 1.5 mg/dL (0.7-1.3); POTASSIUM 3.1 mmol/l (3.5-5.1); TOTAL PROTEIN 5.2 g/dL (6.3-8.2)
--- NOTE | 2017-11-19 07:36 | NUR ---
PT REPORT RECIEVED FROM WHITLEY HOGAN. PT SLEEPING IN BED. NO S/S OF DISTRESS NOTED. CALL LIGHT IN REACH. WILL CONTINUE TO MONITOR.
[2017-11-19 08:02] VITALS: BP 109/72
--- NOTE | 2017-11-19 10:30 | NUR ---
IN TO ASSESS PT WOUNDS W/ SUZI, LANCE, MARLEY SANCHEZ RN AND KENNETH CHAPMAN. PT HAS SCROTAL EDEMA W/ REDNESS. REDNESS NOTED TO GROIN. NO VISIBLE DRAINAGE. BARRIER CREAM APPLIED. PT TURNED TO SIDE. RT BACK PURPLISH/RED W/ SMALL AMOUNT OF BLOODY DRAINAGE PRESENT. MULTIPLE OPEN AREAS. CLEANED AND LEFT OPEN TO AIR. RT FLANK REDDENED, NO DRAINAGE. CLEANED, DRY AND INTACT. LARGE BROWN BOWEL MOVEMENT OCCURRED DURING TURN. DRESSING TO COCCYX REMOVED. PT BUTTOCKS CLEANED. COCCYX PINK W/ 2 HEALING OPENINGS VISIBLE. NO DRAINAGE. AQUACEL FOAM ADHESIVE APPLIED. PT REPOSITION. CALL LIGHT IN REACH. WILL CONTINUE TO MONITOR.
[2017-11-19 11:58] VITALS: BP 119/67
--- NOTE | 2017-11-19 12:25 | NUR ---
PT STATES FEELINGS NAUSEA. MEDICATED WITH 4 MG ZOFRAN IV PER ORDER. WILL CONTINUE TO MONITOR.
[2017-11-19 15:20] VITALS: BP 118/61
--- NOTE | 2017-11-19 16:00 | NUR ---
PT IN SEMI FOWLERS POSITION IN BED ON THE PHONE. NO S/S OF DISTRESS NOTED. KOROMA DRAINING YELLOW URINE. PT DENIES ANY PAIN OR NEEDS AT THIS TIME. CALL LIGHT IN REACH. WILL CONTINUE TO MONITOR.
--- NOTE | 2017-11-19 18:15 | NUR ---
IN W/ ANGIA, CLIENT ENGAGEMENT MANAGER TO TURN PT. COCCYX CLEANED. NEW AQUACEL FOAM ADHESIVE APPLIED.
[2017-11-19 19:30] VITALS: BP 121/70
--- NOTE | 2017-11-19 20:00 | NUR ---
REPORT RECEIVED FROM DAY NURSE, PT CALLED REQUESTING COFFEE/PROVIDED. PT IS IN HIGH FOWLERS POSITION WITH LIGHTS OUT, TV ON. NO S/S OF DISTRESS, PT DENIES ANY OTHER NEEDS AT THIS TIME. CALL LIGHT W/IN REACH AND ENCOURAGED TO CALL IF ANY OTHER NEEDS ARISE.
--- NOTE | 2017-11-19 21:47 | NUR ---
PT MEDICATED, REPOSITIONED BY JAVA ENTERPRISE ARCHITECT AND ASSESSED AT THIS TIME. LUNG SOUNDS ARE CLEAR, ABD SOFT/TENDER TO RIGHT SIDE (PT REPORTS THIS IS NORMAL FOR HIM), ACTIVE BOWEL SOUNDS, PT REPORTS VERY LARGE STOOL TODAY AND MAY NEED TO HAVE ANOTHER SOON. LOCX3, NO NOTED EDEMA, PT C/O ITCHINESS TO LEGS/LOTION APPLIED BY AIDE, NO S/O RASH OR HIVES/JUST DRY SKIN APPEARANCE. PT ASSISTED W/PO FLUIDS AND ENCOURAGED TO CALL IF ANY OTHER NEEDS ARISE/DENIES ANY AT THIS TIME. CALL LIGH IN HAND
[2017-11-20 00:03] VITALS: BP 101/61
[2017-11-20 03:09] VITALS: BP 108/63
--- NOTE | 2017-11-20 04:00 | NUR ---
ASSISTED AIDE IN BEDBATH AND CHANGING OF LINENS. PT TOLERATED WELL AND REPOSITIONED FOR PRESSURE AND COMFORT. ENCOURAGED TO CALL IF ANY NEEDS ARISE.
--- NOTE | 2017-11-20 04:20 | NUR ---
PT CALLED TO REPORT THAT HE FELT THAT HE HAD A BM. ASSISTED AIDE IN CLEANING PT OF 1 LARGE AMOUNT OF SOFT STOOL AND PROVIDED LUCA-CARE. DRESSING TO COCCYX SOILED/REMOVED AND REPLACED W/CLEAN DRESSING. PT REPOSITIONED W/PILLOWS FOR PRESSURE DISPLACEMENT AND COMFORT, PILLOWS UNDER EACH ARM, PT REPORTS COMFORT. ASSISTED IN DRINKING PO FLUIDS, LIGHTS TURNED BACK DOWN AND CALL LIGHT PLACED AT SIDE. PT DENIES ANY OTHER NEEDS AT THIS TIME.
--- NOTE | 2017-11-20 05:20 | NUR ---
PT MEDICATED W/IV ANTIBIOTIC THERAPY ORDERS PROVIDE, PT REPOSITIONED WITH PILLOWS FOR PRESSURE RELEIF AND COMFORT, DENIES ANY OTHER NEEDS AT THIS TIME.
--- NOTE | 2017-11-20 07:00 | NUR ---
SHIFT CHANGE REPORT FROM TUAN PT IN BED WITH HEAD COVRED UNDER SHEET, AROUSED TO VERBAL STIMULI, ORIENTED, DENIED PAIN, TELE MOITOR IN PLACE KOROMA CATHETER IN PLACE WITH YELLOW DRAINAGE, SET UP FOR MEAL, CALL NAVARRO IN REACH.
--- NOTE | 2017-11-20 07:27 | NUR ---
Vancomycin consult Current dose being given: 1000 mg Current dosing interval: 12 hrs Current infusion time (hrs): 2 Trough level obtained: 20 mcg/ml Timing of trough - Number of hours before next dose: 0.5 Hrs New rate constant (neena): 0.045 hr-1 New half-life: 15.40 Hours New Vd from levels: 72.80 Liters (0.7 L/kg) Vancomycin 750 mg q 12 hrs. Infuse over 2 hrs Expected Cpeak: 24 mcg/ml Expected Ctrough: 15 mcg/ml
[2017-11-20 09:11] VITALS: BP 108/62
[2017-11-20 11:10] VITALS: BP 133/63
--- NOTE | 2017-11-20 12:50 | NUR ---
DR IBARRA ROUNDED AND DISCUSSED PLAN OF CARE WITH PT, PT IS SOMEWHAT IN DISAGREEMENT STATING HE HAS TO SEE HIS RACE ON 12/09/17 AND MUST BE OUT OF REHAB BY THEN TO SEE THE RACE, WILL CONTINUE TO MONITOR.
[2017-11-20 15:52] VITALS: BP 131/61
--- NOTE | 2017-11-20 16:00 | NUR ---
TRANSFERRED TO STRETCHER, DOWN FOR CT, RETURNED TO UNIT, TRANSFERRED BACK TO BED WITH ASSIST OF 3 STAFF, CALL RAMON IN REACH.
--- NOTE | 2017-11-20 19:40 | NUR ---
REPORT RECEIVED FROM DAY NURSE. PT IS IN BED W/LIGHTS LOW AND TV OFF. HIS HEAD WAS COVERED WITH SHEET, BUT HE AWOKE AND REMOVED IT WE ENTERED THE ROOM PT REPORTS FEELING NAUSIOUS AND "JUMPY LEGS" AND REQUESTED MEDICATIONS AT THIS TIME/MEDICATED FOR NAUSEA, ANXIETY AND RESTLESS LEG SYNDROME REQUESTED. PT ASSESSED AND POC DISCUSSED. LUNG SOUNDS ARE CLEAR, NO NEW NOTED EDEMA, NEURO'S INTACT, LEFT LEG FLACID AND DROP OF RIGHT FOOT. MODERATE HAND MECHANICAL SHOP LABORER. LOCX3. WILL CONTINUE TO MONITOR, PT DENIES ANY OTHER NEEDS AT THIS TIME AND HAS BEEN ENCOURAGED TO CALL NEEDS ARISE.
[2017-11-20 20:00] VITALS: BP 122/64
--- NOTE | 2017-11-21 | NUR ---
PT V/S ASSESSED AND REPOSITIONED, PT REPORTS HAVING BEEN SLEEPING BUT WOULD LIKE A CUP OF COFFEE/PROVIDED. PT DENIES ANY OTHER NEEDS, CALL LIGHT IS IN HAND.
[2017-11-21 00:09] VITALS: BP 128/67
--- NOTE | 2017-11-21 03:00 | NUR ---
PT PROVIDED BEDBATH AND CREAMS PLACED ON BACK AND BUTTOCKS ORDERED, NYSTATIN POWDER APPLIED TO CREASES IN SKIN FOLDS. PT PROVIDED FOLI CATH LUCA CARE. KOROMA DRAINING CLEAR YELLOW URINE WITH GOOD OUTPUT. PT TOLERATED WELL AND LINENS CHANGED AT THIS TIME. PT DENIES ANY OTHER NEEDS AT THIS TIME. CALL LIGHT W/IN REACH AND PT ENCOURAGED TO CALL NEEDED.
[2017-11-21 05:16] VITALS: BP 130/77
[2017-11-21 05:45] LABS: IMMATURE GRANULOCYTES 1.1 % (0.0-5.0); MEAN CELL VOLUME 88.2 fL CALC (80.0-100.0); MEAN CORPUSCULAR HGB 27.7 pG CALC (26.0-32.0); MEAN CORPUSCULAR HGB CONC 31.4 g/L CALC (32.0-36.0); NEUT# 3.56 thou/uL (1.82-7.42); RED BLOOD COUNT 3.97 mill/uL (4.70-6.10); RED CELL DISTRI WIDTH 16.1 % (11.5-15.5)
[2017-11-21 05:52] LABS: CREATININE 1.5 mg/dL (0.7-1.3); POTASSIUM 3.4 mmol/l (3.5-5.1)
--- NOTE | 2017-11-21 07:08 | NUR ---
BEDSIDE REPORT RECEIVED BY RADHAMES. PT IS RESTING IN BED WITH NO S/S OF DISTRESS NOTED. CALL LIGHT IN REACH.
[2017-11-21 08:00] VITALS: BP 134/68
--- NOTE | 2017-11-21 08:05 | NUR ---
ASSESSMENT DONE. TELE IN PLACE. RESPS EVEN AND UNLABORED. PT IS A&O X3. PT DENIES PAIN AT THIS TIME. 20 LAC THAT APPEARS HEALTHY. KOROMA IS PATENT WITH YELLOW URINE. SAFETY PRECAUTIONS REINFORCED AND CALL LIGHT IN REACH.
[2017-11-21 11:35] VITALS: BP 119/64
--- NOTE | 2017-11-21 12:15 | NUR ---
NOTIFIED LANCE PLATA THAT IS LEAKING URINE FROM KOROMA AND THAT IS BURNING. ISABEL RECEIVED.
--- NOTE | 2017-11-21 12:30 | NUR ---
TURN PT TO HIS SIDE WITH X2 PERSON ASSIST. PT REFUSED FOR ME TO IRRIGATE HIS KOROMA. HE STATED THAT HE FELT BETTER AND NO BURNING AT THIS TIME. PT DENIES ANY OTHER NEEDS AT THIS TIME. CALL LIGHT IN REACH.
[2017-11-21 13:03] LABS: URINE BILIRUBIN - DIPSTICK NEGATIVE (NEGATIVE); URINE BLOOD DIPSTICK NEGATIVE (NEGATIVE); URINE COLOR YELLOW; URINE GLUCOSE - DIPSTICK NEGATIVE (NEGATIVE); URINE KETONE NEGATIVE (NEGATIVE); URINE NITRITE - DIPSTICK NEGATIVE (Negative); URINE PROTEIN - DIPSTICK NEGATIVE (NEG-TRACE); URINE UROBILINOGEN - DIPSTICK 0.2 E.U./dL (0.2)
[2017-11-21 13:10] LABS: URINE CLARITY CLEAR; URINE LEUK ESTERASE SMALL (NEGATIVE)
[2017-11-21 13:19] LABS: URINE SQUAMOUS EPITHELIAL CELL FEW EPI/hpf (0-FEW); URINE WBC 20-50 WBC/hpf (0-5); URINE YEAST MODERATE hpf
--- NOTE | 2017-11-21 16:00 | NUR ---
PT IS RESTING IN BED WITH NO S/S OF DISTRESS NOTED. PT DENIES NEEDS AT THIS TIME. GA IS PATENT WITH YELLOW URINE. CALL LIGHT IN REACH.
[2017-11-21 16:08] VITALS: BP 154/68
--- NOTE | 2017-11-21 19:20 | NUR ---
BEDSIDE REPORT RECEIVED FROM DAY NURSE, PT IS IN HIGH FOWLERS POSITION, DENIES ANY NEEDS AT THIS TIME, TV IS ON. CALL LIGHT IS IN HAND.
[2017-11-21 19:59] VITALS: BP 98/62
--- NOTE | 2017-11-21 20:17 | NUR ---
PT MEDICATED ORDERS PROVIDE AND REPOSITIONED. FEET ELEVATED ON PILLOWS PER REQUEST. PT C/O "ITCHY SKIN" PROVIDED ANTI-ITCH POWDER RUBBED INTO ITCHY AREAS NEEDED FOR COMFORT. POC DISCUSSED AND PLAN FOR TIME OF BEDBATH AGREED UPON. VANCOMYCIN ANTIBIOTIC THERAPY COMPLETED/IV FLUSHED, SITE APPEARS HEALTHY. C/O BACK ITCHING, ASSISTED IN SCRATCHING BACK AND POSITIONED W/PILLOWS UNDER LEFT SIDE. WILL FOLLOW-UP WITH BATH AND MEDICATIONS TO WOUNDS ORDERS PROVIDE. PT ENCOURAGED TO CALL IN THE MEANTIME WITH ANY NEEDS. WATER REFILLED AT BEDSIDE AND CALL LIGHT AT SIDE.
--- NOTE | 2017-11-21 23:10 | NUR ---
PT PROVIDED BEDBATH, WOUND TREATMENT APPLIED ORDERED, PT SKIN RUBBED DOWN WITH LOTION FOR ITCHINESS/DRYNESS TO LEGS,FEET AND ARMS REQUESTED. KOROMA CATHETER FOUND LEAKING, STRAP WAS VERY LOOSE W/OUT TENSION ON KOROMA. KOROMA PULLED TAUGHT W/SLIGHT AMOUNT OF TENSION AND STRAP READJUSTED FOR PLACEMENT. LEAKING STOPPED. PT REPORTS FEELING MUCH BETTER. CATHETER INSERTION SITE SUPERVISOR TUNNEL HEADING/NO S/O SKIN BREAKDOWN IN SAID AREA. PT REPOSITIONED W/PILLOWS TO SIDE AND LEFT W/LIGHTS AND TV OUT AND BED AND CALL SYSTEM CONTROLS W/IN REACH.
[2017-11-22] VITALS (9 sets, daily range): BP systolic 124–142; BP diastolic 47–80
--- NOTE | 2017-11-22 00:40 | NUR ---
PT CALLED TO REPORT THAT HE WAS NOT FEELING WELL, STATED THAT HE WAS LAYING THERE IN BED, TURNED HIS HEAD AND LOOKED OUT THE WINDOW AND FELT LIKE HE WAS "FAINTING LASTING ABOUT A SECOND OR HALF A SECOND." ED CALLED FOR TELEMETRY READING/SR63 W/PVC'S. V/S ASSESS, BP WAS 138/48 HR 64. WAITING TWO MINUTES AND RECHECKING BP HE WAS BACK UP TO 126/63, HR63. RESP NON-LABORED AND EVEN @18. O2SAT ON ROOM AIR @95%. PT REPORTS FEELING BETTER AND NO LONGER HAVING THESE SYMPTOMS. WILL CONTINUE TO MONITOR CLOSELY AND PT HAS BEEN INSTRUCTED TO CALL IF IT HAPPENS AGAIN OR HAS ANY OTHER SYMPTOMS. HE REPORTS THAT HE HAS THIS AT HOME ONCE IN A AWHILE INFREQUENTLY.
--- NOTE | 2017-11-22 02:25 | NUR ---
PT REPOSITIONED KOROMA CATHETER CHECKED FOR LEAKAGE, NO S/O LEAKAGE, LEG STRAP IN PLACE W/SMALL AMOUNT OF TENSION.
--- NOTE | 2017-11-22 05:35 | NUR ---
PT MEDICATED W/ANTIBIOTIC IV THERAPY AND REPOSITIONED. KOROMA CATHETER CHECKED FOR LEAKAGE, NO S/O LEAKING, STRAP IS IN PLACE TO LEG AND SLIGHT TENSION ON CATHETER.
[2017-11-22 05:56] LABS: HEMATOCRIT 36.5 % (39.0-50.0); HEMOGLOBIN 11.6 g/dl (14.0-18.0); MEAN CELL VOLUME 87.5 fL CALC (80.0-100.0); MEAN CORPUSCULAR HGB 27.8 pG CALC (26.0-32.0); MEAN CORPUSCULAR HGB CONC 31.8 g/L CALC (32.0-36.0); RED BLOOD COUNT 4.17 mill/uL (4.70-6.10); RED CELL DISTRI WIDTH 16.2 % (11.5-15.5)
--- NOTE | 2017-11-22 06:05 | NUR ---
PT CEFEPIME COMPLETED AND IV FLUSHED/PATENT. WAITING FOR RESULTS OF VANCO TROUGH PRIOR TO ADMINISTERING VANCO ORDERED.
[2017-11-22 06:15] LABS: CREATININE 1.5 mg/dL (0.7-1.3); MAGNESIUM 1.7 mg/dL (1.6-2.3); POTASSIUM 3.1 mmol/l (3.5-5.1)
--- NOTE | 2017-11-22 07:01 | NUR ---
BEDSIDE REPORT RECEIVED BY RADHAMES. PT IS SLEEPING IN BED WITH NO S/S OF DISTRESS NOTED. CALL LIGHT IN REACH.
--- NOTE | 2017-11-22 07:20 | NUR ---
Vancomycin consult Current dose being given: 750 mg Current dosing interval: 12 hrs Current infusion time (hrs): 2 Trough level obtained: 26 mcg/ml Timing of trough - Number of hours before next dose: 0.5 Hrs New rate constant (neena): 0.029 hr-1 New half-life: 23.90 Hours New Vd from levels: 72.10 Liters (0.7 L/kg) Vancomycin 1000 mg Q24H Infuse over 2 hrs Expected Cpeak: 27 mcg/ml Expected Ctrough: 15 mcg/ml
--- NOTE | 2017-11-22 07:55 | NUR ---
PT IS SEMI FOWLERS WITH LEGS ELEVATED. ASSESSMENT DONE. TELE IN PLACE. RESPS EVEN AND UNLABORED. PT IS A&O X3. # 20 LAC THAT APPEARS HEALTHY. PT DENIES PAIN AT THIS TIME. GA IS PATENT WITH YELLOW URINE. SAFETY PRECAUTIONS REINFORCED AND CALL LIGHT IN REACH.
--- NOTE | 2017-11-22 12:15 | NUR ---
PT IS EATING HIS LUNCH WITH NO S/S OF DISTRESS NOTED. PT DENIES PAIN AT THIS TIME. GA IS PATENT WITH YELLOW URINE. CALL LIGHT IN REACH.
--- NOTE | 2017-11-22 12:36 | NUR ---
AMIRA FROM ER CALLED. PT TELE IS READING P-76, PVC, AND TATYANAEMPELON. NOTIFIED BONI,LANCE AND SHAUN RECEIVED FOR AN EKG. ALSO NOTIFIED LANCE THAT I SLOW THE POTASSIUM BECAUSE PT STATED THAT IT BURN.
--- NOTE | 2017-11-22 16:00 | NUR ---
PT IS RESTING IN BED WITH NO S/S OF DISTRESS NOTED. PT DENIES NEEDS AT THIS TIME. CALL LIGHT IN REACH.
--- NOTE | 2017-11-22 17:50 | NUR ---
CALLED DR. IBARRA RE: PT REFUSING THE SECOND DOSE OF POTASSIUM BAG 20MEQ. STATED OKAY AND NO OTHER ORDERS RECEIVED AT THIS TIME.
--- NOTE | 2017-11-22 19:27 | NUR ---
BEDSIDE REPORT RECEIVED FROM WHITLEY GIVENS. PT RESTING ON AIR MATTRESS IN SEMI FOWLERS POSITION WITH BLANKET OVER HEAD; REMOVES BLANKET UPON ENTERING ROOM; ALERT AND ORIENTED. DENIES PAIN CURRENLTY. RESPIRATIONS EVEN AND UNLABORED ON ROOM AIR. KOROMA TO GRAVITY WITH PALE YELLOW URINE. PLAN OF CARE REVIEWED. PT ENCOURAGED TO VERBALIZE CONCERNS. STATES UNDERSTANDING. SAFETY MEASURES IN PLACE. CALL LIGHT WITHIN REACH.
--- NOTE | 2017-11-23 | NUR ---
COMPLETE BED BATH GIVEN AT HS WITH LINEN CHANGE AND KOROMA CARE. WOUNDS AND SKIN CARE ADDRESSED PER ORDERS. ATIVAN GIVEN AT HS. PT DENIES PAIN, BUT HAS TENDERNESS TO REDNESS ON GROIN. TELE ON. IV SITE APPEARS HEALTHY AND FLUSHES; VANCO INFUSED WITHOUT DIFFICULTY. REPOSITIONED EVERY 2 HOURS; MAX ASSIST. PT HAS NO REQUESTS OR CONCERNS AT THIS TIME. SAFETY MEASURES IN PLACE. CALL LIGHT WITHIN REACH.
[2017-11-23 04:00] VITALS: BP 117/70
--- NOTE | 2017-11-23 04:19 | NUR ---
PT ASLEEP AT THIS TIME WITH NO SIGNS OF DISTRESS. RESPIRATIONS EVEN AND UNLABORED ON ROOM AIR. NO ACUTE CHANGES IN CONDITION THROUGHOUT THE NIGHT. SAFETY MEASURES IN PLACE CALL LIGHT WITHIN REACH.
[2017-11-23 04:55] LABS: HEMATOCRIT 37.3 % (39.0-50.0); HEMOGLOBIN 12.5 g/dl (14.0-18.0); MEAN CELL VOLUME 85.9 fL CALC (80.0-100.0); MEAN CORPUSCULAR HGB 28.8 pG CALC (26.0-32.0); MEAN CORPUSCULAR HGB CONC 33.5 g/L CALC (32.0-36.0); RED BLOOD COUNT 4.34 mill/uL (4.70-6.10); RED CELL DISTRI WIDTH 16.8 % (11.5-15.5)
[2017-11-23 05:20] LABS: CREATININE 1.5 mg/dL (0.7-1.3); MAGNESIUM 1.8 mg/dL (1.6-2.3); POTASSIUM 3.1 mmol/l (3.5-5.1)
--- NOTE | 2017-11-23 07:28 | NUR ---
PT REPORT RECIEVED FROM WHITLEY ESTEVEZ. PT RESTING IN BED. NO S/S OF DISTRESS NOTED. CALL LIGHT IN REACH. WILL CONTINUE TO MONITOR.
[2017-11-23 08:07] VITALS: BP 123/73
--- NOTE | 2017-11-23 08:07 | NUR ---
PT ASSESSMENT COMPLETE. PT A/O X3. SPEECH IS CLEAR. RESP EVEN AND UNLABORED. LOWER LOBES DIMINISHED. TELE IN PLACE. GENERALIZED EDEMA NOTED. ABD DISTENDED, SOFT. LAST BM 11/20/17. BOWEL SOUNDS ACTIVE X4. PT DENIES ANY ABD PAIN. PAIN SCALE/REPORTING REINFORCED. KOROMA INTACT, DRAINING CLEAR, YELLOW URINE TO GRAVITY. LEG SCRAPE IN PLACE. #22 LW SL. FLUSHED AND PATENT. SITE APPEARS HEALTHY. STRONG RADIAL AND PEDAL PULSES. PLAN OF CARE DISCUSSED. SAFETY PRECAUTIONS IN PLACE. CALL LIGHT IN REACH. WILL CONTINUE TO MONITOR.
--- NOTE | 2017-11-23 08:36 | NUR ---
PT HAS SCROTAL EDEMA/REDNESS AND ONE SMALL TEAR UNDER SCROTUM. GROIN REDDENED, CLEANED AND NYSTATIN POWDER APPLIED. OPEN WOUNDS TO UPPER BACK. SMALL BLOODY DRAINAGE NOTED. CLEANED AREA, APPLIED ZINC OXIDE AND SILVADENE. RT FLANK REDDENED. COOCYX REDDENED W/ ONE SMALL OPEN TEAR PRESENT. BUTT PACE APPLIED. PT ON AIR MATTRESS, TURNED TO LT SIDE. SAFETY PRECAUTIONS REINFORCED. CALL LIGHT IN REACH. WILL CONTINUE TO MONITOR.
[2017-11-23 10:57] VITALS: BP 132/56
--- NOTE | 2017-11-23 12:00 | NUR ---
PT STTING UPRIGHT IN BED EATING LUNCH. NO S/S OF DISTRESS NOTED. PT DENIES ANY PAIN OR NEEDS AT THIS TIME. CALL LIGHT IN REACH. WILL CONTINUE TO MONITOR.
[2017-11-23 15:55] VITALS: BP 128/47
--- NOTE | 2017-11-23 16:00 | NUR ---
PT RESTING IN BED. NO S/S OF DISTRESS NOTED. PT DENIES ANY PAIN OR NEEDS AT THIS TIME. SAFETY PRECAUTIONS IN PLACE. CALL LIGHT IN REACH. WILL CONTINUE TO MONITOR.
--- NOTE | 2017-11-23 18:00 | NUR ---
IV SITE FOUND TO BE LEAKING. #22G TO LEFT WRIST REMOVED WITH CATHETER INTACT;NEW #22G STARTED TO LEFT HAND ON FIRST ATTEMPT BY KASSIE FELIX,SITE FLUSHED AND PATENT,PT TOLERATED WELL.WILL CONTINUE TO MONITOR
--- NOTE | 2017-11-23 18:14 | NUR ---
PT REPORTS FEELING NAUSEOUS. MEDICATED W/ A 4MG ZOFRAN TAB. CALL LIGHT IN REACH. WILL CONTINUE TO MONITOR.
--- NOTE | 2017-11-23 19:00 | NUR ---
BEDSIDE REPORT RECEIVED FROM KASSIE GUZMAN. PT SITTING UP IN BED WATCHING TV; ALERT AND ORIENTED. VANCO INFUSING AT THIS TIME WITHOUT DIFFICULTY; IV SITE APPEARS HEALTHY IN LEFT HAND. DENIES PAIN CURRENTLY. RESPIRATIONS EVEN AND UNLABORED ON ROOM AIR. KOROMA DRAINING PALE CLEAR YELLOW URINE. PLAN OF CARE REVIEWED. PT ENCOURAGED TO VERABLIZE CONCERNS. STATES UNDERSTANDING. SAFETY MEASURES IN PLACE. CALL LIGHT WITHIN.
[2017-11-23 19:13] VITALS: BP 127/73
--- NOTE | 2017-11-23 21:44 | NUR ---
COMPLETE BED BATH GIVEN AND WOUND CARE COMPLETED; PT TOLERATED WELL. IV SITE REINFORCED WITH CASPER. PT HAS NO REQUESTS OR CONCERNS. CALL LIGHT WITHIN REACH.
--- NOTE | 2017-11-24 00:02 | NUR ---
PT ASLEEP AT THIS TIME WITH NO SIGNS OF DISTRESS. RESPIRATIONS EVEN AND UNLABORED ON ROOM AIR. IV SITE APPEARS HEATHY AND FLUSHES. PT REMAINS MAX ASSIST AND REPOSITIONED EVERY [address] MEASURES IN PLACE. CALL LIGHT WITHIN REACH.
[2017-11-24 00:03] VITALS: BP 125/69
--- NOTE | 2017-11-24 04:18 | NUR ---
PT ASLEEP AT THIS TIME WITH NO SIGNS OF DISTRESS. NO ACUTE CHANGES IN CONDITION THROUGHOUT THE NIGHT. REPOSITIONED. KOROMA CONTINUES TO DRAIN PALE CLEAR YELLOW URINE IN ADEQUATE AMOUNTS. SAFETY MEASURES IN PLACE. CALL LIGHT WITHIN REACH.
[2017-11-24 04:27] VITALS: BP 95/58
[2017-11-24 04:44] LABS: HEMATOCRIT 34.9 % (39.0-50.0); HEMOGLOBIN 11.2 g/dl (14.0-18.0); IMMATURE GRANULOCYTES 1.1 % (0.0-5.0); MEAN CELL VOLUME 87.3 fL CALC (80.0-100.0); MEAN CORPUSCULAR HGB CONC 32.1 g/L CALC (32.0-36.0); NEUT# 4.07 thou/uL (1.82-7.42); RED CELL DISTRI WIDTH 16.4 % (11.5-15.5)
[2017-11-24 04:51] LABS: CREATININE 1.5 mg/dL (0.7-1.3); MAGNESIUM 2.1 mg/dL (1.6-2.3)
--- NOTE | 2017-11-24 07:17 | NUR ---
PT REPORT RECIEVED FROM WHITLEY ESTEVEZ. PT SLEEPING IN BED. NO S/S OF DISTRESS NOTED. CALL LIGHT IN REACH. WILL CONTINUE TO MONITOR.
[2017-11-24 07:45] VITALS: BP 137/85
--- NOTE | 2017-11-24 07:45 | NUR ---
PT ASSESSMENT COMPLETE. PT A/O X3. SPEECH IS CLEAR. TELE IN PLACE. RESP EVEN AND UNLABORED. LOWER LOBES DIMINISHED. LAST BM 11/20/17. ABDOMEN DISTENDED, SOFT. NO C/O ABDOMINAL PAIN. LT QUADRANTS HYPERACTIVE. RT QUADRANTS ACTIVE. STRONG RADIAL AND PEDAL PULSES. GENERALIZED EDEMA NOTED. PT SKIN IS DRY AND SCALING. KOROMA CATHETER INTACT, DRAINING CLEAR, YELLOW URINE TO GRAVITY. # 22 LH SL. FLUSHED AND PATENT. IV SITE APPEARS HEALTHY. LEGS ELEVATED. REPOSITION PT EVERY 2 HOURS. PLAN OF CARE DISCUSSED. PT STATES UNDERSTANDING. SAFETY PRECAUTIONS IN PLACE. CALL LIGHT IN REACH. WILL CONTINUE TO MONITOR.
--- NOTE | 2017-11-24 09:14 | NUR ---
PT WOUNDS ASSESSED. PT HAS SLIGHT SCROTAL AND GROIN SWELLING/REDNESS. CLEANED AND DRIED. NYSTATIN APPLIED TO GROIN. RT FLANK LIGHT REDNESS. MID UPPER BACK PURPLISH/RED W/ VISIBLE SKIN TEARS. SCANT BLOODY DRAINAGE NOTED. CLEANED AND HYPICLEANSE AND SILVADENE APPLIED. PT HAS MILD REDNESS TO COCCYX AND BUTTOCK. 2 SKIN TEARS VISIBLE TO LOWER BUTTOCK WITH SCANT BLOODY DRAINAGE. WASHED AND DRIED. BUTT PACE APPLIED. PT REPOSITIONS TO LEFT SIDE. LEGS ELEVATED. KOROMA INTACT AND DRAINING. TELE IN PLACE. SAFETY PRECAUTIONS IN PLACE. CALL LIGHT IN REACH. WILL CONTINUE TO MONITOR.
--- NOTE | 2017-11-24 09:25 | NUR ---
DR IBARRA AND LANCE ARCHER IN TO SEE PT. PLAN OF CARE DISCUSSED. PT STATES UNDERSTANDING.
--- NOTE | 2017-11-24 10:37 | NUR ---
DR PRIETO CALLED IN REGARDS TO PORT IMPLANTATION IN PT. STATES HE WILL IMPLANT PORT 10 AM TOMORROW MORNING. PT TO BE NPO AT MIDNIGHT.
--- NOTE | 2017-11-24 10:44 | NUR ---
ISAÍAS KELSEY FROM OR CALLING TO CONFIRM ORDERS FROM DR. PRIETO REGARDING PT. OR WILL BE UP LATER TODAY TO SEE PT. OR WILL GET PT AROUND 9 AM ON 11/25/17 TO TRANSPORT DOWNSTAIRS FOR PORT IMPLANTATION.
--- NOTE | 2017-11-24 11:15 | NUR ---
OR IN TO SEE PT REGARDING PORT.
--- NOTE | 2017-11-24 11:53 | NUR ---
IN PT ROOM TO DISCUSS SURGERY SCHEDULED TOMORROW FOR 10 AM. PT STATES UNDERSTANDING. ALL QUESTIONS ANSWERED. PT SIGNED CONSENT REGARDING VASCULAR PORT INSERTION.
[2017-11-24 12:00] VITALS: BP 151/71
--- NOTE | 2017-11-24 12:13 | NUR ---
PT SITTING UPRIGHT IN BED EATING LUNCH. NO S/S OF DISTRESS NOTED. PT DENIES ANY NEEDS AT THIS TIME. TELE IN PLACE. LEGS ELEVATED. KOROMA CATHETER DRAINING FREELY. SAFETY PRECAUTIONS IN PLACE. CALL LIGHT IN REACH. WILL CONTINUE TO MONITOR.
[2017-11-24 15:35] VITALS: BP 125/76
--- NOTE | 2017-11-24 16:05 | NUR ---
IN TO REMOVE PT EXISTING KOROMA PER ORDER. CATHETER REMOVED USING CLEAN TECHNIQUE. CATHETER INTACT. USING STERILE TECHNIQUE PLACED AN 18F KOROMA CATHETER. PT TOLERATED WELL. CATHETER DRAINING CLEAR YELLOW URINE W/ SOME SEDIMENT. URINE SPECIMEN SENT TO LAB. CALL LIGHT IN REACH. WILL CONTINUE TO MONITOR.
--- NOTE | 2017-11-24 16:18 | NUR ---
FAMILY MEMBER CALLED REGARDING PROCEDURE TOMORROW. ALL QUESTIONS ANSWER. FAMILY MEMBER STATES UNDERSTANDING.
--- NOTE | 2017-11-24 16:20 | NUR ---
PT RESTING IN BED. NO S/S OF DISTRESS NOTED. TELE IN PLACE. KOROMA DRAINING FREELY. PT DENIES ANY NEEDS AT THIS TIME. CALL LIGHT IN REACH. WILL CONTINUE TO MONITOR.
[2017-11-24 16:28] LABS: URINE BILIRUBIN - DIPSTICK NEGATIVE (NEGATIVE); URINE BLOOD DIPSTICK TRACE-INTACT (NEGATIVE); URINE COLOR YELLOW; URINE GLUCOSE - DIPSTICK NEGATIVE (NEGATIVE); URINE KETONE NEGATIVE (NEGATIVE); URINE NITRITE - DIPSTICK NEGATIVE (Negative); URINE PROTEIN - DIPSTICK NEGATIVE (NEG-TRACE); URINE UROBILINOGEN - DIPSTICK 0.2 E.U./dL (0.2)
[2017-11-24 16:33] LABS: URINE CLARITY HAZY; URINE LEUK ESTERASE MODERATE (NEGATIVE)
--- NOTE | 2017-11-24 18:20 | NUR ---
PT IV ANTIBIOTICS REMOVED DUE TO IV LEAKAGE. WHITLEY JIMENES ATTEMPTED TO INSERT NEW IV IN RH. PREVIOUS AND NEW IV SITE REMOVED. NOTIFIED. STATES TO HOLD ANTIBIOTICS TIL AFTER PROCEDURE IN AM. WILL CONTINUE TO MONITOR.
--- NOTE | 2017-11-24 19:15 | NUR ---
BEDSIDE REPORT RECEIVED FROM KASSIE GUZMAN. PT SITTING UP IN BED TALKING ON HIS CELL PHONE; ALERT AND ORIENTED. DENIES PAIN. RESPIRATIONS EVEN AND UNLABORED ON ROOM AIR. NO IV SITE; MD AWARE. NEW KOROMA PLACED ON DAY SHIFT IS PATENT AND DRAINING CLEAR PALE YELLOW URINE. PLAN OF CARE REVIEWED INCLUDING PLANNED PROCEDURE IN THE MORNING FOR A PORT PLACEMENT. PT ENCOURAGED TO VERBALIZE CONCERNS. STATES UNDERSTANDING. SAFETY MEASURES IN PLACE. CALL LIGHT WITHIN REACH.
[2017-11-24 19:19] VITALS: BP 130/74
--- NOTE | 2017-11-24 23:53 | NUR ---
PT ASLEEP AT THIS TIME WITH NO SIGNS OF DISTRESS. RESPIRATIONS EVEN AND UNLABORED ON ROOM AIR. PT REMAINS MAX ASSIST AND REPOSITIONED EVERY 2 HOURS FOR SKIN INTEGRITY. BED BATH GIVEN AND WOUND CARE COMPLETED AT HS AND NEW PHOTOS TAKEN AND IN CHART. SAFETY MEASURES IN PLACE. CALL LIGHT WITHIN REACH.
[2017-11-25] VITALS (9 sets, daily range): BP systolic 99–142; BP diastolic 45–71
--- NOTE | 2017-11-25 04:03 | NUR ---
PT ASLEEP AT THIS TIME WITH NO SIGNS OF DISTRESS. NO ACUTE CHANGES IN CONDITION THROUGHOUT THE NIGHT. KOROMA CONTINUES TO DRAIN CLEAR YELLOW URINE IN ADEQUATE AMOUNTS. PT CONTINUES ON Q2 HR TURN AND REPOSITION AND ON AIR MATTRESS. SAFETY MEASURES IN PLACE. CALL LIGHT WITHIN REACH.
--- NOTE | 2017-11-25 07:00 | NUR ---
REPORT RECEIVED FROM WHITLEY ESTEVEZ;PT APPEARS TO BE RESTING IN SUPINE POSITION;INTRODUCED SELF TO PT AND POC DISCUSSED;RESPIRATIONS EVEN AND UNLABORED ON RA;NPO DIET STATUS REINFORCED AND PT VERBALIZES UNDERSTANDING;FALL PRECAUTIONS IN PLACE WITH CALL LIGHT IN REACH;INSTRUCTED PT TO CALL FOR ASSISTANCE IF NEEDED;WILL CONTINUE TO MONITOR
--- NOTE | 2017-11-25 07:50 | NUR ---
PT RESTING IN SUPINE POSITION;ALERT AND ORIENTED X3;PT DENIES ANY CURRENT PAIN OR DISCOMFORTS;RE-EDUCATED ABOUT GOING TO OR FOR CHEST PORT PLACEMENT AND PT VERBALIZES UNDERSTANDING;VS OBTAINED AND ASSESSMENT COMPLETED;RESPIRATIONS EVEN AND UNLABORED ON RA,CLEAR/DIMINISHED LUNG SOUNDS NOTED;ABDOMEN SOFT ON PALPATION AND ACTIVE IN ALL 4 QUADRANTS;WEAK PEDAL PULSES WITH TRACE EDEMA NOTED,LEGS ELEVATED ON PILLOW;KOROMA CATHETER PATENT DRAINING CLEAR/YELLOW URINE,LEG STRAP IN PLACE;NO IV SITE,MD AWARE;WOUNDS NOTED TO UPPER BACK,CLEANSED WITH HIBICLENS AND SILVADENE PER ORDER.BUTT PASTE APPLIED TO REDDENED COCCYX AND NYSTATIN TO ABDOMINAL SKIN FOLDS,PHOTOGRAPHS IN CHART;BED BATH PROVIDED WITH KOROMA CARE;TELE MONITOR IN PLACE;PT REPOSITIONED TO LEFT SIDE LAYING POSITION;NPO DIET REINFORCED;PT DENIES ANY ADDITIONAL NEEDS AT THIS TIME AND IS ENCOURAGED TO CALL FOR ASSISTANCE IF NEEDED;CALL LIGHT IN REACH;WILL CONTINUE TO MONITOR
--- NOTE | 2017-11-25 09:07 | NUR ---
PT TRANSFERRED TO OR VIA HOSPITAL BED IN STABLE CONDITION ACCOMPANIED BY OR STAFF.
[2017-11-25] MEDS ORDERED: SILVER SULFA1 % TOP (12:09)
[2017-11-25] MEDS ORDERED: NYSTOP100000 UNI TOP (12:09)
--- NOTE | 2017-11-25 12:15 | NUR ---
PT ARRIVED BACK TO FLOOR IN STABLE CONDITION ACCOMPANIED BY OR STAFF;PT ALERT AND ORIENTED X3;RESPIRATIONS EVEN AND UNLABORED ON RA;PT DENIES ANY CURRENT PAIN OR DISCOMFORTS;RIGHT SIDED CHEST PORT IN PLACE INFUSING LR @100 ML/HR PER OR;TELE MONITOR PLACED ON PT AND MIRLAX X1 ADMINISTERED PER ORDER;VS OBTAINED AND REMAIN STABLE;KOROMA CATHETER IN PLACE DRAINING YELLOW/CLEAR URINE;FALL PRECAUTIONS IN PLACE WITH CALL LIGHT IN REACH;WILL CONTINUE TO MONITOR
[2017-11-25] MEDS ORDERED: DOXYCYCL HYC100 MG PO (12:20)
[2017-11-25] MEDS ORDERED: CEFEPIME2 GM IV (12:22)
--- NOTE | 2017-11-25 16:00 | NUR ---
PT NOTIFIED OF ETA (30 MINS)FOR [facility] TO TRANSPORT TO [facility],PT VERBALIZES UNDERSTANDING;KOROMA CATHETER EMPTIED OF 100CC OF CLEAR/YELLOW URINE;PT DENIES ANY ADDITIONAL NEEDS AND IS INSTRUCTED TO CALL FOR ASSISTANCE IF NEEDED;CALL LIGHT IN REACH;WILL CONTINUE TO MONITOR
--- NOTE | 2017-11-25 16:28 | NUR ---
Discharge instructions given. Patient verbalizes understanding of same. Discharged in stable condition via [facility] with *Other. All belongings sent with pt. Pt transferred to [facility].
--- NOTE | 2017-11-25 16:47 | NUR ---
ATTEMPTED TO CALL REPORT AT [facility]. WHITLEY SPARROW WILL CALL BACK FOR REPORT.
--- NOTE | 2017-11-25 17:06 | NUR ---
REPORT CALLED TO WHITLEY SPARROW AT [facility]
== END 2017-11-25 16:28 | DRG 579 ==
LOC: MS2 13:34
PROVIDERS: Nurse Practitioner Family; ADMIT Internal Medicine; ATTEND Internal Medicine
PROC: 0T2BX0Z Change Drainage Device in Bladder, External Approach (ICD-10-PCS; 2017-11-24)
PROC: 0JH60XZ Insertion of Tunneled Vascular Access Device into Chest Subcutaneous Tissue and Fascia, Open Approach (ICD-10-PCS; principal; 2017-11-25)
PROC: 02HV33Z Insertion of Infusion Device into Superior Vena Cava, Percutaneous Approach (ICD-10-PCS; 2017-11-25)
PROC: B518ZZA Fluoroscopy of Superior Vena Cava, Guidance (ICD-10-PCS; 2017-11-25)
DX: L03.312 Cellulitis of back [any part except buttock and flank] (principal); L89.113 Pressure ulcer of right upper back, stage 3; L89.133 Pressure ulcer of right lower back, stage 3; T83.518A Infection and inflammatory reaction due to other urinary catheter, initial encounter; N39.0 Urinary tract infection, site not specified; N20.1 Calculus of ureter; E78.5 Hyperlipidemia, unspecified; I25.10 Atherosclerotic heart disease of native coronary artery without angina pectoris; I12.9 Hypertensive chronic kidney disease with stage 1 through stage 4 chronic kidney disease, or unspecified chronic kidney disease; N18.3 Chronic kidney disease, stage 3 (moderate); M62.3 Immobility syndrome (paraplegic); N40.0 Benign prostatic hyperplasia without lower urinary tract symptoms; T83.098A Other mechanical complication of other urinary catheter, initial encounter; I48.91 Unspecified atrial fibrillation; E27.8 Other specified disorders of adrenal gland; R60.1 Generalized edema; E87.6 Hypokalemia; M19.90 Unspecified osteoarthritis, unspecified site; G25.81 Restless legs syndrome; I70.208 Unspecified atherosclerosis of native arteries of extremities, other extremity; B37.2 Candidiasis of skin and nail; Y84.6 Urinary catheterization as the cause of abnormal reaction of the patient, or of later complication, without mention of misadventure at the time of the procedure; Z87.440 Personal history of urinary (tract) infections; Z95.1 Presence of aortocoronary bypass graft; Z87.891 Personal history of nicotine dependence; Z95.810 Presence of automatic (implantable) cardiac defibrillator
CPT/HCPCS: J0692; J3370

== ENCOUNTER 2018-02-20 11:54 | Inpatient (IN) | payer MEDICARE ==
[2018-02-20] VITALS (15 sets, daily range): BP systolic 101–133; BP diastolic 46–66
[~2018-02-20] VITALS: Ht 185.4 cm; Wt 104.4 kg
[~2018-02-20 11:54] MED LIST changes: +CEFEPIME2 GM IV; +SILVER SULFA1 % TOP
[2018-02-20 12:57] LABS: HEMATOCRIT 32.8 % (39.0-50.0); HEMOGLOBIN 10.7 g/dl (14.0-18.0); IMMATURE GRANULOCYTES 0.3 % (0.0-5.0); MEAN CELL VOLUME 91.4 fL CALC (80.0-100.0); MEAN CORPUSCULAR HGB 29.8 pG CALC (26.0-32.0); MEAN CORPUSCULAR HGB CONC 32.6 g/L CALC (32.0-36.0); NEUT# 12.75 thou/uL (1.82-7.42); RED BLOOD COUNT 3.59 mill/uL (4.70-6.10); RED CELL DISTRI WIDTH 15.8 % (11.5-15.5)
[2018-02-20 13:10] LABS: ALBUMIN 3.2 g/dL (3.2-5.0); BILIRUBIN, TOTAL 0.8 mg/dL (0.0-1.4); CREATININE 1.9 mg/dL (0.7-1.3); POTASSIUM 3.9 mmol/l (3.5-5.1); TOTAL PROTEIN 5.7 g/dL (6.3-8.2)
[2018-02-21] VITALS (18 sets, daily range): BP systolic 106–155; BP diastolic 49–76
[2018-02-21 05:03] LABS: HEMATOCRIT 31.6 % (39.0-50.0); HEMOGLOBIN 10.1 g/dl (14.0-18.0); MEAN CELL VOLUME 92.4 fL CALC (80.0-100.0); MEAN CORPUSCULAR HGB 29.5 pG CALC (26.0-32.0); RED BLOOD COUNT 3.42 mill/uL (4.70-6.10); RED CELL DISTRI WIDTH 15.5 % (11.5-15.5)
[2018-02-21 05:55] LABS: CREATININE 1.8 mg/dL (0.7-1.3); MAGNESIUM 1.9 mg/dL (1.6-2.3); POTASSIUM 4.1 mmol/l (3.5-5.1)
[2018-02-22 01:30] VITALS: BP 139/69
[2018-02-22 04:00] VITALS: BP 109/57
[2018-02-22 05:11] LABS: HEMATOCRIT 30.7 % (39.0-50.0); HEMOGLOBIN 9.9 g/dl (14.0-18.0); MEAN CELL VOLUME 90.8 fL CALC (80.0-100.0); MEAN CORPUSCULAR HGB 29.3 pG CALC (26.0-32.0); MEAN CORPUSCULAR HGB CONC 32.2 g/L CALC (32.0-36.0); RED BLOOD COUNT 3.38 mill/uL (4.70-6.10); RED CELL DISTRI WIDTH 14.9 % (11.5-15.5)
[2018-02-22 05:37] LABS: CREATININE 1.7 mg/dL (0.7-1.3); POTASSIUM 4.1 mmol/l (3.5-5.1)
[2018-02-22 06:00] VITALS: BP 150/64
[2018-02-22 07:28] VITALS: BP 150/64
[2018-02-22 08:00] VITALS: BP 151/62
[2018-02-22] MEDS ORDERED: OMNICEF300 MG PO (09:19)
[2018-02-22 10:15] VITALS: BP 146/63
== END 2018-02-22 10:15 | DRG 698 ==
LOC: ICU 11:54
PROVIDERS: ADMIT Internal Medicine; ATTEND Internal Medicine
DX: T83.511A Infection and inflammatory reaction due to indwelling urethral catheter, initial encounter (principal); A41.9 Sepsis, unspecified organism; I13.0 Hypertensive heart and chronic kidney disease with heart failure and stage 1 through stage 4 chronic kidney disease, or unspecified chronic kidney disease; G82.20 Paraplegia, unspecified; N18.3 Chronic kidney disease, stage 3 (moderate); I50.9 Heart failure, unspecified; N39.0 Urinary tract infection, site not specified; J44.9 Chronic obstructive pulmonary disease, unspecified; I25.10 Atherosclerotic heart disease of native coronary artery without angina pectoris; M54.12 Radiculopathy, cervical region; E78.5 Hyperlipidemia, unspecified; M19.90 Unspecified osteoarthritis, unspecified site; L89.151 Pressure ulcer of sacral region, stage 1; I12.9 Hypertensive chronic kidney disease with stage 1 through stage 4 chronic kidney disease, or unspecified chronic kidney disease; G25.81 Restless legs syndrome; B96.4 Proteus (mirabilis) (morganii) as the cause of diseases classified elsewhere; Y84.6 Urinary catheterization as the cause of abnormal reaction of the patient, or of later complication, without mention of misadventure at the time of the procedure; Z95.5 Presence of coronary angioplasty implant and graft; Z95.810 Presence of automatic (implantable) cardiac defibrillator; Z95.1 Presence of aortocoronary bypass graft; Z87.891 Personal history of nicotine dependence; Z87.440 Personal history of urinary (tract) infections
CPT/HCPCS: J3370

== ENCOUNTER 2018-09-17 10:40 | Observation (INO) | payer MEDICARE ==
[~2018-09-17] VITALS: Ht 182.9 cm; Wt 108.9 kg
[~2018-09-17 10:40] MED LIST changes: +OMNICEF300 MG PO
[2018-09-17] MEDS ORDERED: CEPHALEXIN500 MG PO (11:09)
[2018-09-17] MEDS ORDERED: ROPINIROLE HCL0.5 MG PO (11:10)
[2018-09-17] MEDS ORDERED: METOPROL TAR25 MG PO (11:21)
[2018-09-17] MEDS ORDERED: TRAMADOL HCL50 MG PO (11:22)
[2018-09-17 11:27] LABS: IMMATURE GRANULOCYTES 0.4 % (0.0-5.0); MEAN CELL VOLUME 85.8 fL CALC (80.0-100.0); MEAN CORPUSCULAR HGB 26.5 pG CALC (26.0-32.0); MEAN CORPUSCULAR HGB CONC 30.9 g/L CALC (32.0-36.0); NEUT# 4.96 thou/uL (1.82-7.42); RED BLOOD COUNT 4.57 mill/uL (4.70-6.10); RED CELL DISTRI WIDTH 15.8 % (11.5-15.5)
[2018-09-17 11:30] LABS: HEMATOCRIT 39.2 % (39.0-50.0); HEMOGLOBIN 12.1 g/dl (14.0-18.0)
[2018-09-17 11:50] LABS: ALBUMIN 3.5 g/dL (3.2-5.0); BILIRUBIN, TOTAL 0.6 mg/dL (0.0-1.4); CREATININE 1.6 mg/dL (0.7-1.3); POTASSIUM 4.1 mmol/l (3.5-5.1); TOTAL PROTEIN 6.4 g/dL (6.3-8.2)
[2018-09-17 12:22] LABS: URINE BILIRUBIN - DIPSTICK NEGATIVE (NEGATIVE); URINE BLOOD DIPSTICK SMALL (NEGATIVE); URINE COLOR YELLOW; URINE GLUCOSE - DIPSTICK NEGATIVE (NEGATIVE); URINE KETONE NEGATIVE (NEGATIVE); URINE PH 7.5 (4.5-8.0); URINE PROTEIN - DIPSTICK NEGATIVE (NEG-TRACE); URINE UROBILINOGEN - DIPSTICK 0.2 E.U./dL (0.2)
[2018-09-17 12:23] LABS: URINE LEUK ESTERASE MODERATE (NEGATIVE); URINE NITRITE - DIPSTICK POSITIVE (Negative)
[2018-09-17 12:36] LABS: URINE BACTERIA MANY hpf; URINE WBC 20-50 WBC/hpf (0-5)
[2018-09-17 12:37] LABS: URINE YEAST MODERATE hpf
[2018-09-17 12:50] VITALS: BP 151/79
[2018-09-17 15:40] VITALS: BP 134/75
[2018-09-17 19:10] VITALS: BP 149/64
[2018-09-18] VITALS (7 sets, daily range): BP systolic 118–145; BP diastolic 61–75
[2018-09-18 08:15] LABS: HEMATOCRIT 37.9 % (39.0-50.0); HEMOGLOBIN 11.8 g/dl (14.0-18.0); IMMATURE GRANULOCYTES 0.5 % (0.0-5.0); MEAN CORPUSCULAR HGB 26.5 pG CALC (26.0-32.0); MEAN CORPUSCULAR HGB CONC 31.1 g/L CALC (32.0-36.0); NEUT# 5.61 thou/uL (1.82-7.42); RED BLOOD COUNT 4.46 mill/uL (4.70-6.10)
[2018-09-18 08:23] LABS: CREATININE 1.5 mg/dL (0.7-1.3); MAGNESIUM 2.1 mg/dL (1.6-2.3)
[2018-09-19 01:44] VITALS: BP 118/65
[2018-09-19 04:30] VITALS: BP 115/60
[2018-09-19 05:25] LABS: HEMATOCRIT 36.1 % (39.0-50.0); HEMOGLOBIN 11.2 g/dl (14.0-18.0); IMMATURE GRANULOCYTES 0.4 % (0.0-5.0); MEAN CELL VOLUME 87.2 fL CALC (80.0-100.0); MEAN CORPUSCULAR HGB 27.1 pG CALC (26.0-32.0); NEUT# 4.68 thou/uL (1.82-7.42); RED BLOOD COUNT 4.14 mill/uL (4.70-6.10)
[2018-09-19 05:37] LABS: CREATININE 1.5 mg/dL (0.7-1.3); POTASSIUM 3.8 mmol/l (3.5-5.1)
[2018-09-19 08:52] VITALS: BP 144/59
[2018-09-19 11:03] VITALS: BP 150/65
[2018-09-19 15:09] VITALS: BP 155/64
[2018-09-19 18:47] VITALS: BP 152/85
[2018-09-20 00:30] VITALS: BP 141/70
[2018-09-20 04:05] VITALS: BP 137/75
[2018-09-20 09:41] VITALS: BP 144/67
[2018-09-20 10:59] VITALS: BP 158/84
[2018-09-20] MEDS ORDERED: CIPROFLOXACN500 MG PO (11:05)
[2018-09-20 16:29] VITALS: BP 143/68
== END 2018-09-20 15:35 ==
LOC: ED 10:40 → ED-I 10:56 → ED 10:57 → MS2 10:58
PROVIDERS: Family Medicine; Nurse Practitioner Family; ADMIT Internal Medicine; ATTEND Internal Medicine
DX: T83.518A Infection and inflammatory reaction due to other urinary catheter, initial encounter (principal); N39.0 Urinary tract infection, site not specified; I12.9 Hypertensive chronic kidney disease with stage 1 through stage 4 chronic kidney disease, or unspecified chronic kidney disease; N18.3 Chronic kidney disease, stage 3 (moderate); I25.10 Atherosclerotic heart disease of native coronary artery without angina pectoris; G82.21 Paraplegia, complete; I48.91 Unspecified atrial fibrillation; E78.5 Hyperlipidemia, unspecified; M19.90 Unspecified osteoarthritis, unspecified site; N40.0 Benign prostatic hyperplasia without lower urinary tract symptoms; J90 Pleural effusion, not elsewhere classified; G25.81 Restless legs syndrome; R53.81 Other malaise; B96.89 Other specified bacterial agents as the cause of diseases classified elsewhere; Y84.6 Urinary catheterization as the cause of abnormal reaction of the patient, or of later complication, without mention of misadventure at the time of the procedure; Z95.1 Presence of aortocoronary bypass graft; Z74.01 Bed confinement status; Z87.891 Personal history of nicotine dependence; Z79.82 Long term (current) use of aspirin; Z95.810 Presence of automatic (implantable) cardiac defibrillator; Z87.440 Personal history of urinary (tract) infections

== ENCOUNTER 2018-12-28 10:01 | Inpatient (IN) | payer MEDICARE ==
[~2018-12-28] VITALS: Ht 182.9 cm; Wt 117.6 kg
[~2018-12-28 10:01] MED LIST changes: +CEPHALEXIN500 MG PO; +METOPROL TAR25 MG PO; +ROPINIROLE HCL0.5 MG PO; +TRAMADOL HCL50 MG PO
[2018-12-28 10:58] LABS: HEMATOCRIT 39.5 % (39.0-50.0); HEMOGLOBIN 12.4 g/dl (14.0-18.0); IMMATURE GRANULOCYTES 0.4 % (0.0-5.0); MEAN CORPUSCULAR HGB 27.3 pG CALC (26.0-32.0); MEAN CORPUSCULAR HGB CONC 31.4 g/L CALC (32.0-36.0); NEUT# 5.67 thou/uL (1.82-7.42); RED BLOOD COUNT 4.54 mill/uL (4.70-6.10); RED CELL DISTRI WIDTH 16.8 % (11.5-15.5)
[2018-12-28 11:12] LABS: ALBUMIN 3.3 g/dL (3.2-5.0); BILIRUBIN, TOTAL 0.6 mg/dL (0.0-1.4); CREATININE 1.5 mg/dL (0.7-1.3); POTASSIUM 3.6 mmol/l (3.5-5.1); TOTAL PROTEIN 6.3 g/dL (6.3-8.2)
[2018-12-28 14:00] VITALS: BP 148/75
[2018-12-28 16:58] LABS: URINE BILIRUBIN - DIPSTICK NEGATIVE (NEGATIVE); URINE BLOOD DIPSTICK TRACE-INTACT (NEGATIVE); URINE COLOR YELLOW; URINE GLUCOSE - DIPSTICK NEGATIVE (NEGATIVE); URINE KETONE NEGATIVE (NEGATIVE); URINE PH 8.5 (4.5-8.0); URINE PROTEIN - DIPSTICK 30 mg/dL (NEG-TRACE); URINE UROBILINOGEN - DIPSTICK 0.2 E.U./dL (0.2)
[2018-12-28 17:02] LABS: URINE LEUK ESTERASE LARGE (NEGATIVE); URINE NITRITE - DIPSTICK POSITIVE (Negative)
[2018-12-28 17:03] LABS: URINE BACTERIA FEW hpf; URINE TRIP PHOS CRYSTALS MANY lpf
[2018-12-28 17:04] LABS: URINE AMORPH SEDIMENT MANY hpf (NONE-FER)
[2018-12-28 19:35] VITALS: BP 142/60; BP 95/52
[2018-12-29 04:38] VITALS: BP 135/67
[2018-12-29 09:05] VITALS: BP 156/75
[2018-12-29 17:08] VITALS: BP 153/75
[2018-12-29 19:20] VITALS: BP 160/67
[2018-12-29 20:23] VITALS: BP 146/74
[2018-12-30 04:32] VITALS: BP 125/66
[2018-12-30 05:01] LABS: HEMATOCRIT 39.5 % (39.0-50.0); HEMOGLOBIN 12.3 g/dl (14.0-18.0); IMMATURE GRANULOCYTES 0.3 % (0.0-5.0); MEAN CELL VOLUME 86.1 fL CALC (80.0-100.0); MEAN CORPUSCULAR HGB 26.8 pG CALC (26.0-32.0); MEAN CORPUSCULAR HGB CONC 31.1 g/L CALC (32.0-36.0); NEUT# 4.66 thou/uL (1.82-7.42); RED BLOOD COUNT 4.59 mill/uL (4.70-6.10); RED CELL DISTRI WIDTH 16.4 % (11.5-15.5)
[2018-12-30 05:25] LABS: ANION GAP 11 (6-22 (CALC)); BUN 18 mg/dL (8-23); BUN/CREATININE RATIO 14 (12-20 (CALC)); CARBON DIOXIDE 22 mmol/l (22-30); CHLORIDE 110 mmol/l (95-108); CREATININE 1.3 mg/dL (0.7-1.3); GFR 54 ML/MIN (>=60 (CALC)); GFR FOR AFR.AMER. > 60 ML/MIN (>=60 (CALC)); MAGNESIUM 1.9 mg/dL (1.6-2.3); POTASSIUM 3.6 mmol/l (3.5-5.1); SODIUM 139 mmol/l (137-146)
[2018-12-30 09:24] VITALS: BP 145/77
[2018-12-30 15:05] VITALS: BP 138/69
[2018-12-30 19:15] VITALS: BP 140/59
[2018-12-31 04:15] VITALS: BP 143/64
[2018-12-31 07:50] VITALS: BP 136/57
[2018-12-31 15:03] VITALS: BP 133/60
[2018-12-31 19:00] VITALS: BP 139/57
[2019-01-01 04:38] VITALS: BP 144/90
[2019-01-01 05:51] LABS: HEMATOCRIT 41.1 % (39.0-50.0); HEMOGLOBIN 12.9 g/dl (14.0-18.0); IMMATURE GRANULOCYTES 0.5 % (0.0-5.0); MEAN CELL VOLUME 86.7 fL CALC (80.0-100.0); MEAN CORPUSCULAR HGB 27.2 pG CALC (26.0-32.0); MEAN CORPUSCULAR HGB CONC 31.4 g/L CALC (32.0-36.0); NEUT# 4.25 thou/uL (1.82-7.42); RED BLOOD COUNT 4.74 mill/uL (4.70-6.10); RED CELL DISTRI WIDTH 16.6 % (11.5-15.5)
[2019-01-01 06:13] LABS: CREATININE 1.4 mg/dL (0.7-1.3); POTASSIUM 4.1 mmol/l (3.5-5.1)
[2019-01-01 07:58] VITALS: BP 146/71
[2019-01-01 10:45] VITALS: BP 123/58
[2019-01-01 15:20] VITALS: BP 147/86
== END 2019-01-01 16:20 | disposition home health service (06) | DRG 698 ==
LOC: ED 10:01 → ED-I 11:37 → ED 11:58 → MS2 11:59
PROVIDERS: Family Medicine; Nurse Practitioner Family; ADMIT Internal Medicine; ATTEND Internal Medicine
PROC: 0T2BX0Z Change Drainage Device in Bladder, External Approach (ICD-10-PCS; principal; 2018-12-30)
DX: T83.511A Infection and inflammatory reaction due to indwelling urethral catheter, initial encounter (principal); R53.2 Functional quadriplegia; Z16.24 Resistance to multiple antibiotics; N17.9 Acute kidney failure, unspecified; N39.0 Urinary tract infection, site not specified; Z87.440 Personal history of urinary (tract) infections; R53.81 Other malaise; I12.9 Hypertensive chronic kidney disease with stage 1 through stage 4 chronic kidney disease, or unspecified chronic kidney disease; N18.3 Chronic kidney disease, stage 3 (moderate); Z87.891 Personal history of nicotine dependence; Z74.01 Bed confinement status; E78.5 Hyperlipidemia, unspecified; N40.0 Benign prostatic hyperplasia without lower urinary tract symptoms; I25.10 Atherosclerotic heart disease of native coronary artery without angina pectoris; M19.90 Unspecified osteoarthritis, unspecified site; G25.81 Restless legs syndrome; L89.152 Pressure ulcer of sacral region, stage 2; L89.112 Pressure ulcer of right upper back, stage 2; Z95.810 Presence of automatic (implantable) cardiac defibrillator; Z95.5 Presence of coronary angioplasty implant and graft; B96.4 Proteus (mirabilis) (morganii) as the cause of diseases classified elsewhere; Z95.1 Presence of aortocoronary bypass graft
CPT/HCPCS: J0692; Q3014

== ENCOUNTER 2019-03-28 11:50 | Inpatient (IN) | payer MEDICARE ==
[~2019-03-28] VITALS: Ht 182.9 cm; Wt 131.2 kg
[~2019-03-28 11:50] MED LIST changes: +ASPIRIN LOW DOS81 M1 PO; -ASPIRIN LOW DOS81 MG PO
--- NOTE | 2019-03-28 11:58 | NUR ---
PATIENT TO ROOM VIA EMS, ALERT AND ORIENTED X3. BEDSIDE TRIAGE COMPLETED. AT BEDSIDE.
--- NOTE | 2019-03-28 12:30 | NUR ---
UA OBTAINED; IV TO LW STARTED; PT TOLERATED WELL; PT ADVISED ON POC; NO S/S OF DISTRESS NOTED; VSS; WILL CONTINUE TO MONITOR
[2019-03-28 12:49] LABS: HEMATOCRIT 41.2 % (39.0-50.0); HEMOGLOBIN 13.1 g/dl (14.0-18.0); IMMATURE GRANULOCYTES 0.4 % (0.0-5.0); MEAN CELL VOLUME 87.7 fL CALC (80.0-100.0); MEAN CORPUSCULAR HGB 27.9 pG CALC (26.0-32.0); MEAN CORPUSCULAR HGB CONC 31.8 g/L CALC (32.0-36.0); NEUT# 6.18 thou/uL (1.82-7.42); RED BLOOD COUNT 4.7 mill/uL (4.70-6.10); RED CELL DISTRI WIDTH 16.5 % (11.5-15.5)
[2019-03-28 13:06] LABS: URINE BILIRUBIN - DIPSTICK NEGATIVE (NEGATIVE); URINE BLOOD DIPSTICK NEGATIVE (NEGATIVE); URINE COLOR YELLOW; URINE GLUCOSE - DIPSTICK NEGATIVE (NEGATIVE); URINE KETONE NEGATIVE (NEGATIVE); URINE PH 6.5 (4.5-8.0); URINE PROTEIN - DIPSTICK TRACE mg/dL (NEG-TRACE); URINE SPECIFIC GRAVITY 1.015
[2019-03-28 13:07] LABS: ALBUMIN 3.6 g/dL (3.2-5.0); ALKALINE PHOSPHATASE 76 u/l (38-126); ANION GAP 15 (6-22 (CALC)); BUN 20 mg/dL (8-23); BUN/CREATININE RATIO 14 (12-20 (CALC)); CARBON DIOXIDE 22 mmol/l (22-30); CHLORIDE 107 mmol/l (95-108); CREATININE 1.5 mg/dL (0.7-1.3); GFR 46 ML/MIN (>=60 (CALC)); GFR FOR AFR.AMER. 55 ML/MIN (>=60 (CALC)); LIPASE 69 u/l (23-300); POTASSIUM 4.8 mmol/l (3.5-5.1); SODIUM 139 mmol/l (137-146)
[2019-03-28 13:08] LABS: BILIRUBIN, TOTAL 0.9 mg/dL (0.0-1.4); SGOT/AST 28 u/l (19-48)
[2019-03-28 13:11] LABS: URINE LEUK ESTERASE MODERATE (NEGATIVE); URINE NITRITE - DIPSTICK POSITIVE (Negative)
[2019-03-28 13:13] LABS: URINE BACTERIA MANY hpf; URINE EPITHELIAL CELLS MANY EPI/hpf (0-FEW); URINE WBC 20-50 WBC/hpf (0-5)
--- NOTE | 2019-03-28 13:25 | NUR ---
PT TO RADIOLOGY AT THIS TIME IN STABLE CONDITION
--- NOTE | 2019-03-28 14:20 | NUR ---
DR CARR AT BEDSIDE TO DISCUSS FINDINGS AND POC
--- NOTE | 2019-03-28 15:20 | NUR ---
PT RESTING ON STRETCHER; NO S/S OF DISTRESS NOTED; MONITORING DEVICES IN PLACE; VSS;PT DENIES ANY NAUSEA OR PAIN AT THIS TIME
--- NOTE | 2019-03-28 16:20 | NUR ---
DR CARR AT BEDSIDE TO DISCUSS PLAN TO ADMIT
--- NOTE | 2019-03-28 17:00 | NUR ---
PT RESTING ON STRETCHER; ADVISED OF CONTINUED WAIT TIME; VSS; WILL CONTINUE TO MONITOR
--- NOTE | 2019-03-28 17:42 | NUR ---
DR IBARRA AT BEDSIDE
--- NOTE | 2019-03-28 18:40 | NUR ---
IV ANTIBIOTICS STARTED AT THIS TIME; PT ADVISED OF TRANSFER TO FLOOR AFTER CHIST CHANGE; VERBALIZES UNDERSTANDING; CALL LIGHT WITHIN REACH
--- NOTE | 2019-03-28 19:08 | NUR ---
REPORT TO WHITLEY COVARRUBIAS
--- NOTE | 2019-03-28 19:10 | NUR ---
IN ROOM INTRODUCED SELF TO PT.
--- NOTE | 2019-03-28 20:10 | NUR ---
PT. MADE AWARE HE WILL BE GOING TO HIS ROOM HERIBERTO.
--- NOTE | 2019-03-28 20:45 | NUR ---
PT. ARRIVES VIA STRETCHER FROM ER. PT. MOVED OVER WITH TOTAL ASSIST FROM 3 NURSES PRESENT. PT. NOTED WITH RED, SCALY BACK WITH WOUND. WILL ASSESS WOUND IN NEAR FUTURE. LUNGS DIMINISHED TO BASES, CLEAR UPPERS. DENIES COMPLAINTS OF PAIN. MOVES UPPER EXTREMITIES, PT. HAS PARALYSIS OF LOWER EXTREMITIES BY HISTORY. PT. HAS NON-WORKING PORT TO RT. UPPER CHEST. TRACE LOWER EXT EDEMA NOTED. PT. WITH INDWELLING KOROMA CATHETER/CHRONIC UTI. RESPS EVEN AND UNLABORED. AFEBRILE. EXPLAINED CALL LIGHT SYSTEM GOWN PLACED ON PATIENT AT THIS TIME. PT. REPOSITIONED FOR COMFORT. CALL LIGHT REMAINS WITHIN REACH.
--- NOTE | 2019-03-28 20:55 | NUR ---
PT. TAKEN TO ICU VIA STRETCHER, KOROMA CATH EMPTIED FOR 1400 ML CLEAR YELLOW URINE.
[2019-03-28 21:00] VITALS: BP 154/65
--- NOTE | 2019-03-28 21:15 | NUR ---
THIS RN CALLED TO ROOM TO "THROW THIS SLOP AWAY". PT. STATES THE MEAL TRAY THAT WAS SENT UP WITH HIM WAS "COLD AND NO GOOD".
--- NOTE | 2019-03-28 21:30 | NUR ---
PT. AGAIN TOW MOTOR DRIVER LIGHT ASKING FOR BLANKETS, THAT THE BATHROOM DOOR BE CLOSED AND THAT HIS BED BE REPOSITIONED WITHIN THE ROOM SO THAT HE CAN BETTER VIEW THE TELEVISION. REQUESTS COMPLETED.
[2019-03-28 22:00] VITALS: BP 158/70
[2019-03-29] VITALS (12 sets, daily range): BP systolic 109–184; BP diastolic 52–96
--- NOTE | 2019-03-29 00:15 | NUR ---
PT. REPOSITIONED FOR COMFORT. ZOSYN INFUSING AT THIS TIME WITHOUT REACTIONS NOTED. REMAINS AFEBRILE. CALL LIGHT REMAINS WITHIN REACH. WILL CONTINUE TO CLOSELY MONITOR.
--- NOTE | 2019-03-29 04:05 | NUR ---
PT. REPOSITIONED FOR COMOFRT. REMAINS AFEBRILE. RESPS REMAIN EVEN AND UNLABORED. CALL LIGHT REMAINS WITHIN REACH. IV FLUIDS CONTINUE TO INFUSE ORDERED. WILL CONTINUE TO CLOSELY MONITOR.
--- NOTE | 2019-03-29 04:50 | NUR ---
PT. REMAINS EASILY AROUSABLE TO LIGHT VERBAL STIMULI. LAB AT BEDSIDE TO DRAW PT. PT. REMAINS ORIENTED X 3. VOICES NO COMPLAINTS OR NEEDS AT THIS TIME. BP/HR STABLE. CALL LIGHT REMAINS WITHIN REACH. WILL CONTINUE TO MONITOR.
[2019-03-29 05:48] LABS: HEMATOCRIT 41.4 % (39.0-50.0); HEMOGLOBIN 12.9 g/dl (14.0-18.0); IMMATURE GRANULOCYTES 0.3 % (0.0-5.0); MEAN CELL VOLUME 87.3 fL CALC (80.0-100.0); MEAN CORPUSCULAR HGB 27.2 pG CALC (26.0-32.0); MEAN CORPUSCULAR HGB CONC 31.2 g/L CALC (32.0-36.0); NEUT# 6.64 thou/uL (1.82-7.42); RED BLOOD COUNT 4.74 mill/uL (4.70-6.10); RED CELL DISTRI WIDTH 16.4 % (11.5-15.5)
[2019-03-29 05:51] LABS: ALBUMIN 3.2 g/dL (3.2-5.0); BILIRUBIN, TOTAL 0.9 mg/dL (0.0-1.4); CREATININE 1.5 mg/dL (0.7-1.3); POTASSIUM 4.2 mmol/l (3.5-5.1); TOTAL PROTEIN 6.3 g/dL (6.3-8.2)
--- NOTE | 2019-03-29 06:00 | NUR ---
PT. OFFERED REPOSITIONING, HOWEVER HE DECLINED AT THIS TIME.
--- NOTE | 2019-03-29 07:03 | NUR ---
RECVD REPORT FROM WHITLEY COVARRUBIAS
--- NOTE | 2019-03-29 08:11 | NUR ---
DR SILVERMAN NOTIFIED OF CONSULT FOR POSSIBLE PORT CHANGE.
--- NOTE | 2019-03-29 08:20 | NUR ---
DR IBARRA @BEDSIDE, ASSESSING PT.
--- NOTE | 2019-03-29 08:33 | NUR ---
PT NOTIFIED OF NPO STATUS & UPDATED POC. VERIFIED PT FULL CODE.
--- NOTE | 2019-03-29 08:42 | NUR ---
CALLED [facility] FOR A BED.
--- NOTE | 2019-03-29 09:42 | NUR ---
I SPOKE WITH EDINSON FROM [facility] @0938 AM AND SHE VERIFIED THAT THE MATRESS WOULD BE DELIVERED. THE CONSIRMATION NUMBER IS #[id number] AND THE NUMBER I CALLED WAS ([phone]).
--- NOTE | 2019-03-29 10:01 | NUR ---
PT SIGNED CONSENT FOR PORT EXCHANGE. USING UNITS PORT PHONE NOW TO TALK TO .
--- NOTE | 2019-03-29 10:15 | NUR ---
PT STATES CRYSTAL KOROMA CHANGED BY HOME HEALTH ON 03/10/2019. FAXED RBVOT TO PHARMACY FOR ELEVATED BP.
--- NOTE | 2019-03-29 10:34 | NUR ---
RICKIE, OR, @BEDSIDE WITH PT.
--- NOTE | 2019-03-29 10:40 | NUR ---
PT OUT THE DOOR WITH OR IN STABLE CONDITION
--- NOTE | 2019-03-29 13:15 | NUR ---
PT ARRIVED TO MED/SURG ROOM 267 IN STABLE CONDITION VIA HOSPITAL BED ACCOOMPANIED BY X2 OR STAFF MEMBERS;BEDSIDE REPORT RECEIVED FROM WHITLEY CHAPMAN;PT A&O X4, TOTAL ASSIT PT;PT ORIENTED TO ROOM AND CALL LIGHT SYSTEM;WT AND VS OBTAINED BY KENNETH CHAPMAN;PT DENIES ANY CURRENT PAIN OR DISCOMFORTS,PAIN SCALE AND REPORTING EDUCATED;RESPIRATIONS EVEN AND UNLABORED ON RA,CLEAR LUNG SOUNDS;ABDOMEN DISTENDED/SOFT ON PALPATION AND ACTIVE IN ALL 4 QUADRANTS;KOROMA CATHETER PATENT DRAINING CLEAR/YELLOW URINE TO GRAVITY WITH EASE;WEAK PEDAL PULSES,SCD'S PLACED ON PT;#20G TO RAC INFUSING NS PER ORDER,SITE APPEARS HEALTHY;TELE MONITORING PLACED ON PT AT THIS TIME;PRESSURE ULCER NOTED TO BUTTOCK,CLEANSED AND DRESSED WITH AQUACEL DRESSING,SECOND PRESSURE ULCER NOTED TO RT UPPER BACK WITH DRESSING ALREADY IN PLACE;PHOTOGRAPHS IN CHART;CONTACT PRECAUTIONS INITATED FOR HX OF MRSA;FALL AND ALLERGY BAND IN PLACE;PT DENIES ANY ADDITIONAL NEEDS AND IS ENCOURAGED TO CALL FOR ASSISTANCE IF NEEDED;FALL PRECAUTIONS IN PLACE WITH BED IN THE LOWEST POSITION AND CALL LIGHT IN REACH;WILL CONTINUE TO MONITOR
--- NOTE | 2019-03-29 15:25 | NUR ---
PT RESTING IN SEMI FOWLERS POSITION WITH SPOUSE AT BEDSIDE;RESPIRATIONS EVEN AND UNLABORED ON RA;PT DENIES ANY CURRENT PAIN OR NEEDS;TELE MONITORING IN PLACE;#20G TO RAC INFUSING NS ORDER;KOROMA CATHETER REMAINS PATENT DRAINING TO GRAVITY;ASSESSMENT REMAINS UNCHANGED AT THIS TIME;ENCOURAGED PT TO CALL FOR ASSISTANCE IF NEEDED;CALL LIGHT IN REACH;WILL CONTINUE TO MONITOR
[2019-03-29] MEDS ORDERED: [UNRECOGNIZED DRUG - OTHER] TOP (16:11)
[2019-03-29] MEDS ORDERED: HYDROCORTISONE1 % TOP (16:12)
--- NOTE | 2019-03-29 20:00 | NUR ---
PATIENT RESTING IN BED AT THIS TIME WITH LINENS OVER HIS HEAD. PATIENT RESPONDS TO VERBAL STIMULI-AWAKE ALERT AND ORIENTEDX3. PATIENT WITH NO COMPLAINTS AT THIS TIME. TELE MONITOR IN PLACE. KOROMA CATH PATENT AND DRAINING YELLOW URINE. PATIENT IS ON AIR MATTRESS. NEW RIGHT UPPER CHEST PORT INTACT-DERMABOND INTACT. BRUIISING TO RIGHTUPPER CHEST NOTED. IV SITE TO RAC INTACT WITH IVF AT KVO RATE. SAFETY PRECAUTIONS REINFORCED. CALL LIGHT IN REACH. WILL CONT TO MONITOR.
[2019-03-30] VITALS (7 sets, daily range): BP systolic 140–163; BP diastolic 66–89
--- NOTE | 2019-03-30 00:01 | NUR ---
PATIENT RESTING IN BED ON AIR MATTRESS. IV TO RIGHT AC FOUND DISLODGED. NEW IV SITE STARTED TO LEFT WRIST-#24 GAUGE WITH GOOD BLOOD RETURN. IV ZOSYN HUNG ORDERED. TELE MONITOR IN PLACE KOROMA CATH PATENT AND DRAINING CLOUDY YELLOW URINE. PATIENT TURNED AND REPOSITONED ON LEFT SIDE WITH PILLOWS TO BACH AND LLEFT ARM ELEVATED ON PILLOW. AQUACEL FOAM DRESSINGS INTACT TO BUTTOCKS AND RIGHT UPPER BACK/SHOULDER AREA. SKIN IS RED AND SCALEY. RIGHT UPPER CHEST PORT INTACT-JUST PLACED TODAY-DERMABOND INTACT. RIGHT UPPER CHEST WITH SOME BRUISING AND SLIGHT SWELLING FROM INSERTION. SAFETY PRECAUTION REINFORCED. CALL LIGHT IN REACH. WILL CONT TO MONITOR.
--- NOTE | 2019-03-30 01:45 | NUR ---
APPEARS SLEEPING AT THIS TIME-POSITIONED ON LEFT SIDE. APPEARS SLEEPING WITH EYES CLOSED. TELE MONITOR IN PLACE. FOLRY PATENT AND DRAINING YELLOW URINE. IVF PATENT AND INFUSING VIA LEFT WRIST SITE. CALL LIGHT IN REACH. WILL CONT TO MONITOR.
--- NOTE | 2019-03-30 03:36 | NUR ---
PATIENT RESTING IN BED ON AIR MATTRESS. AWAKE AND ALERT-NO COMPLAINTS AT THIS TIME. KOROMA REMAINS PATENT AND DRAINING YELLOW URINE. TEL MONITOR IN PLACE. IV SITE TO LEFT WRIST WITH IVF AT KVO RATE. SITE REMAINS HEALTHY. PATIENT TURN AND REPOSTIONED ON RIGHT SIDE. AQUACEL FOAM DRESSINGS TO RIGHT UPPER BACK AND BUTTOCKS IN PLACE. SAFETY PRECAUTIONS REINFORCED. CALL LIGHT IN REACH.
--- NOTE | 2019-03-30 07:10 | NUR ---
REPORT RECEIVED FROM WHITLEY HOGAN;PT RESTING IN SEMI FOWLERS POSITION ON AN AIR MATTRESS;INTRODUCED SELF TO PT AND POC DISCUSSED;RESPIRATIONS EVEN AND UNLABORED ON RA;PT DENIES ANY CURRENT PAIN OR NEEDS;TELE MONITORING IN PLACE;IV FLUIDS INFUSING WITH EASE PER ORDER;KOROMA CATHETER PATENT;CONTACT PRECAUTIONS IN PLACE;PT DENIES ANY ADDITIONAL NEEDS AND IS ENCOURAGED TO CALL FOR ASSISTANCE IF NEEDED;FALL PRECAUTIONS IN PLACE WITH BED IN THE LOWEST POSITION AND CALL LIGHT IN REACH;WILL CONTINUE TO MONITOR
--- NOTE | 2019-03-30 08:40 | NUR ---
PT RESTING IN SEMI FOWLERS POSITION,A&0 X3;VS OBTAINED AND ASSESSMENT COMPLETED;PT DENIES ANY CURRENT PAIN OR DISCOMFORTS,PAIN SCALE AND REPORTING EDUCATED;RESPIRATIONS EVEN AND UNLABORED ON RA,CLEAR LUNG SOUNDS;ABDOMEN DISTENDED/SOFT ON PALPATION AND ACTIVE IN ALL 4 QUADRANTS;KOROMA CATHETER PATENT DRAINING TO GRAVITY WITH EASE;WEAK PEDAL PULSES,SCD'S NOTED;DRESSINGS TO BUTTOCKS AND RT UPPER BACK CDI;#24G TO LEFT WRIST FLUSHED AND PATENT,SITE APPEARS HEALTHY;TELE MONITORING NOTED;CONTACT PRECAUTIONS REMAIN IN PLACE;PT DENIES ANY ADDITIONAL NEEDS AND IS ENCOURAGED TO CALL FOR ASSISTANCE IF NEEDED;FALL PRECAUTIONS IN PLACE WITH CALL LIGHT IN REACH;WILL CONTINUE TO MONITOR
--- NOTE | 2019-03-30 11:40 | NUR ---
AT BEDSIDE DISCUSSING POC.
--- NOTE | 2019-03-30 12:15 | NUR ---
PT RESTING IN SEMI FOWLERS POSITION EATING LUNCH;RESPIRATIONS EVEN AND UNLABORED ON RA;PT DENIES ANY CURRENT PAIN OR NEEDS;TELE MONITORING IN PLACE;IV SITE PATENT AND ABX STARTED AT THIS TIME;KOROMA CATHETER PATENT;PT DENIES ANY ADDITIONAL NEEDS AND IS ENCOURAGED TO CALL FOR ASSISTANCE IF NEEDED;ASSESSMENT REMAINS UNCHANGED;CALL LIGHT IN REACH;WILL CONTINUE TO MONITOR
--- NOTE | 2019-03-30 15:00 | NUR ---
RIGHT UPPER CHEST PORT ACCESSED BY WHITLEY MCGILL.GOOD BLOOD RETURN NOTED;PT TOLERATED WELL.
--- NOTE | 2019-03-30 15:35 | NUR ---
PT RESTING IN SEMI FOWLERS POSITION;RESPIRATIONS EVEN AND UNLABORED ON RA;PT DENIES ANY CURRENT PAIN OR NEEDS;TELE MONITORING IN PLACE;KOROMA CATHETER PATENT;#24G TO LEFT WRIST AND RT UPPER CHEST PORT PATENT;ASSESSMENT REMAINS UNCHANGED;ENCOURAGED PT TO CALL FOR ASSISTANCE IF NEEDED;CALL LIGHT IN REACH;WILL CONTINUE TO MONITOR
--- NOTE | 2019-03-30 18:49 | NUR ---
PT MEDICATED WITH PRN ULTRAM 50MG PO FOR ABDOMINAL PAIN RATING 5/10 ON THE PAIN SCALE,WILL MONITOR FOR EFFECTIVENESS
--- NOTE | 2019-03-30 19:30 | NUR ---
PATIENT RESTING IN BED WITH LINENS OVER HIS HEAD. PATIENT IS AWAKE ALERT AND ORIENTEDX3. RESTING ON AIR MATTRESS. TELE MONITOR IN PLACE. SALINE LOCK TO LEFT WRIST INTACT AND APPEARS HEALTHY AT THIS ITME. RIGHT UPPER CHEST PORT ACCESSED-RIGHT UPPER CHEST IS BRUISED. DERMABOND TO RIGHT UPPER CHEST PORT INTACT. KOROMA CATH PATENT AND DRAINING YELLOW URINE. CONTACT PRECAUTIONS FOR HX OF MRSA IN PLACE. AQUACEL DRESSINGS TO RIGHT UPPER BACK AND BUTTOCKS INTACT-TURNED AND REPOSITIONED. SAFETY PRECAUTIONS REINFORCED. CALL LIGHT IN REACH. WILL CONT TO MONITOR.
--- NOTE | 2019-03-31 00:19 | NUR ---
PATIENT APPEARS SLEEPING AT THIS TIME WITH LINENS OVER HIS HEAD-RESP ARE EVEN AND UNLABORED. TELE MONITOR IN PLACE. KOROMA DRAINING YELLOW URINE. CALL LIGHT IN REACH. WILL CONT TO MONITOR.
[2019-03-31 03:23] VITALS: BP 153/86
--- NOTE | 2019-03-31 03:50 | NUR ---
PATIENT APPEARS SLEEPING AT THIS TIME. TELE MONITOR IN PLACE. KOROMA PATENT AND DRAINING YELLOW URINE. SALINE LOCK TO LEFT WRIST SITE APPEARS HEALTHY. CALL LIGHT IN REACH. WILL CONT TO MONITOR.
[2019-03-31 05:09] LABS: HEMOGLOBIN 12.3 g/dl (14.0-18.0); MEAN CELL VOLUME 86.7 fL CALC (80.0-100.0); MEAN CORPUSCULAR HGB 27.3 pG CALC (26.0-32.0); MEAN CORPUSCULAR HGB CONC 31.5 g/L CALC (32.0-36.0); RED BLOOD COUNT 4.5 mill/uL (4.70-6.10); RED CELL DISTRI WIDTH 15.9 % (11.5-15.5)
[2019-03-31 05:24] LABS: CREATININE 1.8 mg/dL (0.7-1.3); MAGNESIUM 2.1 mg/dL (1.6-2.3); POTASSIUM 3.8 mmol/l (3.5-5.1)
[2019-03-31 08:00] VITALS: BP 162/72
[2019-03-31] MEDS ORDERED: KEFLEX500 MG PO (10:42)
[2019-03-31] MEDS ORDERED: TRAMADOL HCL50 MG PO (10:42)
[2019-03-31 11:19] VITALS: BP 135/67
--- NOTE | 2019-03-31 15:22 | NUR ---
PT DISCHARGED TO HOME PER [facility] TRANSPORT. PT IN STABLE CONDITION AND READY TO GO HOME. UPPER RIGHT CHEST PORT HEPARINIZED BEFORE DEACCESSING AT DISCHARGE. SUPPORT GIVEN.
--- NOTE | 2019-04-01 07:58 | NUR ---
I SPOKE WITH ADAIR FROM [facility] @2606AM. SHE VERIFIED THAT THE MATRESS WOULD BE PICKED UP AND PT WAS DICHARGED YESTERDAY 03/31/19. THE CONFIRMATION NUMBER IS #[id number].
[2019-04-19] MEDS ORDERED: ZOFRAN4 MG/TAB PO (11:37)
== END 2019-03-31 15:20 | disposition home health service (06) | DRG 674 ==
LOC: ED 11:50 → ED-I 16:18 → ED 16:46 → ICU 16:47 → MS2 03-29 13:15
PROVIDERS: Family Medicine; Nurse Practitioner Family; ADMIT Internal Medicine; ATTEND Internal Medicine
PROC: 0JPT0WZ Removal of Totally Implantable Vascular Access Device from Trunk Subcutaneous Tissue and Fascia, Open Approach (ICD-10-PCS; principal; 2019-03-29)
PROC: 0JH60WZ Insertion of Totally Implantable Vascular Access Device into Chest Subcutaneous Tissue and Fascia, Open Approach (ICD-10-PCS; 2019-03-29)
PROC: 02PY03Z Removal of Infusion Device from Great Vessel, Open Approach (ICD-10-PCS; 2019-03-29)
PROC: 02HV33Z Insertion of Infusion Device into Superior Vena Cava, Percutaneous Approach (ICD-10-PCS; 2019-03-29)
PROC: B518ZZA Fluoroscopy of Superior Vena Cava, Guidance (ICD-10-PCS; 2019-03-29)
DX: T83.511A Infection and inflammatory reaction due to indwelling urethral catheter, initial encounter (principal); I13.0 Hypertensive heart and chronic kidney disease with heart failure and stage 1 through stage 4 chronic kidney disease, or unspecified chronic kidney disease; T82.594A Other mechanical complication of infusion catheter, initial encounter; N39.0 Urinary tract infection, site not specified; I50.9 Heart failure, unspecified; N18.3 Chronic kidney disease, stage 3 (moderate); E78.5 Hyperlipidemia, unspecified; N40.0 Benign prostatic hyperplasia without lower urinary tract symptoms; I25.10 Atherosclerotic heart disease of native coronary artery without angina pectoris; I48.91 Unspecified atrial fibrillation; M19.90 Unspecified osteoarthritis, unspecified site; K80.20 Calculus of gallbladder without cholecystitis without obstruction; L89.152 Pressure ulcer of sacral region, stage 2; L89.102 Pressure ulcer of unspecified part of back, stage 2; G25.81 Restless legs syndrome; I71.4 Abdominal aortic aneurysm, without rupture; M21.379 Foot drop, unspecified foot; M48.00 Spinal stenosis, site unspecified; R53.81 Other malaise; B96.1 Klebsiella pneumoniae [K. pneumoniae] as the cause of diseases classified elsewhere; Y84.6 Urinary catheterization as the cause of abnormal reaction of the patient, or of later complication, without mention of misadventure at the time of the procedure; Y83.1 Surgical operation with implant of artificial internal device as the cause of abnormal reaction of the patient, or of later complication, without mention of misadventure at the time of the procedure; Z95.828 Presence of other vascular implants and grafts; Z87.440 Personal history of urinary (tract) infections; Z87.891 Personal history of nicotine dependence; Z95.5 Presence of coronary angioplasty implant and graft; Z95.810 Presence of automatic (implantable) cardiac defibrillator
CPT/HCPCS: G0378; Q9967

== ENCOUNTER 2019-04-21 | Inpatient (IN) | payer MEDICARE ==
[2019-04-19] VITALS (7 sets, daily range): BP systolic 72–126; BP diastolic 36–77
--- NOTE | 2019-04-19 10:46 | NUR ---
PT TO ROOM VIA EMS PT STATES THAT HE HAS BEEN FEELING WEAK AND FULL BODY PAIN SINCE YESTERDAY. PT HAS KOROMA CATH IN PLACE. PT IS AOX4. DENIES ANY C/P, SOB, N/V. PT HAS REGULAR MOVEMENT OF ALL EXTREMIETIES.
[2019-04-19 11:25] LABS: HEMATOCRIT 42.3 % (39.0-50.0); HEMOGLOBIN 13.5 g/dl (14.0-18.0); IMMATURE GRANULOCYTES 0.5 % (0.0-5.0); MEAN CELL VOLUME 85.8 fL CALC (80.0-100.0); MEAN CORPUSCULAR HGB 27.4 pG CALC (26.0-32.0); MEAN CORPUSCULAR HGB CONC 31.9 g/L CALC (32.0-36.0); NEUT# 11.37 thou/uL (1.82-7.42); RED BLOOD COUNT 4.93 mill/uL (4.70-6.10)
[2019-04-19 11:40] LABS: ALBUMIN 3.7 g/dL (3.2-5.0); BILIRUBIN, TOTAL 1.1 mg/dL (0.0-1.4); CREATININE 1.6 mg/dL (0.7-1.3); TOTAL PROTEIN 6.8 g/dL (6.3-8.2)
--- NOTE | 2019-04-19 11:42 | NUR ---
VERIFIED MEDS WITH PTS BY PHONE
--- NOTE | 2019-04-19 12:42 | NUR ---
PT RESTING ON STRETCHER, REPOSITIONED TO POSITION OF COMFORT.
--- NOTE | 2019-04-19 13:58 | NUR ---
[facility] CALLED FOR REPORT. NAUN FERNANDO ACCEPTED PT
--- NOTE | 2019-04-19 14:28 | NUR ---
Admission Note Report Given to: NAUN FERNANDO Transported by: Wheelchair X Stretcher Transported with: X Nurse Transporter X Patent IV O2 X Pan Cleaner Location: [place] [facility] [place] [place] [facility] [place]
--- NOTE | 2019-04-19 14:30 | NUR ---
PT ARRIVED FROM ER VIA STRETCHER WITH STAFF
--- NOTE | 2019-04-19 16:45 | NUR ---
ASSESSMENT IS COMPLETED: IV SITE IS FREE FROM REDNESS OR EDEMA. HR IS REG, PULSES ARE STRONG ON RADIAL AND WEAK ON PEDAL. BREATH SOUNDS ARE CLEAR,BILATERALLY, NO C/O SOB/. C/O BEING COLD. MULTIPLE BLANKETS. TELE MONITOR IN PLACE. CONTINEU TO OBSERVE AND MONITOR. KOROMA DRAINING YELLOW WITH SEDIMENT.
--- NOTE | 2019-04-19 16:49 | NUR ---
PT C/O NOT FEELING WELL
--- NOTE | 2019-04-19 17:15 | NUR ---
PT HAD ICE PACKS UNDER HIS ARMS. TO GET FEVER DOWN. IV SITE IS FREE FROM REDNESS OR EDEMA.
--- NOTE | 2019-04-19 18:01 | NUR ---
RECEIVED A CALL FROM DR IBARRA RE: PT WANTING HIM SENT TO ICU.
--- NOTE | 2019-04-19 18:15 | NUR ---
ATTEMPTED ICU PHONE WAS RINGING NO ANSWER,
--- NOTE | 2019-04-19 18:30 | NUR ---
ATTEMPTED TO CALL ICU , WAS INFORMED THAT THEY WERE IN PROCESS OF SENDING SOMEONE OUT WILL CALL BACK WITH A BED,
--- NOTE | 2019-04-19 19:30 | NUR ---
REPORT RECEIVED FROM NAUN ESPINO LPN, IT WAS ENDORSED TO THIS NURSE THAT ORDER WAS RECEIVED TO TRANSFER TO ICU @ 0610, PER Francisca ESPINO ICU AND NURSING ENGRAVING PLATE MAKER AWARE.
--- NOTE | 2019-04-19 19:45 | NUR ---
PT IS LAYING IN BED, SEMI-FOWLERS POSITION. O2 AT 2L/M VIA NC. PT IS ALERT AND IN APPARENT DISCOMFORT. REPORTS PAIN 'EVERYWHERE'. VS 126/66, ST 111, RESP 21, T 100.8 TEMPORAL, O2SAT 96%. PT'S FAMILY IS AT BEDSIDE ASKING ABOUT ICU TX. EXPLAINED TO FAMILY BED WAS PENDING AND REASSURED FAMILY THAT PT WAS BEING CLOSELY MONITORED. PT AND FAMILY DENY FURTHER QUESTIONS OR NEEDS AT THIS TIME. CALL [facility] WITHIN REACH, AGREES TO CALL PRN.
--- NOTE | 2019-04-19 19:47 | NUR ---
CALLED [facility] AT SPOKE TO ANSLEY WAS GIVEN CONFIRMATION NUMBER [phone].
--- NOTE | 2019-04-19 19:49 | NUR ---
CALLED ICU TO INQUIRED ABOUT A BED FOR THE PT. UNABLE TO GIVE A BED AT THIS TIME.
--- NOTE | 2019-04-19 20:15 | NUR ---
PT CON'T TO REPORT GENARALIZED DISCOMFORT. VS 113/56, ST 113, RESP 22, 95% ON O2 @ 2L, AND T 102.[address] GARCIA. APAP 650MG PO GIVEN AND ICE PACKS APPLIED TO B/L AXILLA. U/A COLLECTED AND SENT TO LAB. PER ICU BED IS NOT AVAILABLE AT THIS TIME. DR. GARCIA AWARE.
[2019-04-19 20:58] LABS: URINE BILIRUBIN - DIPSTICK NEGATIVE (NEGATIVE); URINE BLOOD DIPSTICK SMALL (NEGATIVE); URINE COLOR YELLOW; URINE GLUCOSE - DIPSTICK NEGATIVE (NEGATIVE); URINE KETONE TRACE mg/dL (NEGATIVE); URINE PH 5.5 (4.5-8.0); URINE PROTEIN - DIPSTICK 30 mg/dL (NEG-TRACE); URINE UROBILINOGEN - DIPSTICK 0.2 E.U./dL (0.2)
[2019-04-19 21:00] LABS: URINE LEUK ESTERASE MODERATE (NEGATIVE); URINE NITRITE - DIPSTICK POSITIVE (Negative); URINE WBC 20-50 WBC/hpf (0-5)
[2019-04-19 21:01] LABS: URINE BACTERIA FEW hpf; URINE YEAST FEW hpf
--- NOTE | 2019-04-19 21:03 | NUR ---
F/U TEMP 101.1 ORALLY. ICU BED PENDING PER ICU.
--- NOTE | 2019-04-19 21:38 | NUR ---
PT TO TX TO ICU BED#3, PT ENDORSED TO ARIANA BUTLER RN. NO CHANGES IN PT'S STATUS. PT AND FAMILY AWARE OF PENDING TX TO ICU ROOM #3, FAMILY IS LEAVING EXCEPT FOR PT'S S/O.
--- NOTE | 2019-04-19 22:00 | NUR ---
PT TRANSFERRED TO ICU #3 ON BED W/ PORTABLE O2. IN ROOM HAND OFF OF CARE DONE WITH HARLEY ARREAGA.
--- NOTE | 2019-04-19 22:10 | NUR ---
ARRIVES FROM MED/SURG VIA STRETCHER WITH NURSE AND BELT MEASURER ACCOMPANIED. DROWSY, ORIENTED. SPOUSE ACCOMPANIED. APPEARS FATIGUED. SINUS RHYTHM. RT. CHEST WALL PORT ACCESSED WITH VANCOMYCIN INFUSING AT THIS TIME.
--- NOTE | 2019-04-19 22:15 | NUR ---
HYPOTENSIVE ON ARRIVAL AT 76/38 AND 69/39. MD MADE AWARE, NEW ORDERS RECEIVED. WILL FLUID BOLUS ORDERED AND ADMINISTER LEVOPHED NEEDED.
--- NOTE | 2019-04-19 22:53 | NUR ---
KARLA CALLED, WILL NOT MAKE IT TONIGHT.
--- NOTE | 2019-04-19 23:31 | NUR ---
PT. REMAINS HYPOTENSIVE AT 70/39 DESPITE ONE LITER OF 2L BOLUS BEING INFUSED. LEVOPHED DRIP INITIATED AT 4 MCG/MIN AT THIS TIME.
--- NOTE | 2019-04-19 23:51 | NUR ---
PT. REMAINS HYPOTENSIVE AT 71/31. LEVOPHED DRIP INCREASED TO 8 MCG/MIN.
[2019-04-20] VITALS (18 sets, daily range): BP systolic 79–153; BP diastolic 44–64
--- NOTE | 2019-04-20 01:08 | NUR ---
LEVOPHED DECREASED BACK TO 4 MCG/MIN. BP IMPROVED AT THIS TIME. WILL CONITNUE TO CLOSELY MONITOR.
--- NOTE | 2019-04-20 02:00 | NUR ---
PT HAS KOROMA FROM HOME, DRAINING CLOUDY ROSE MARY URINE
--- NOTE | 2019-04-20 02:00 | NUR ---
PT WITH EYES CLOSED, RESP EVEN AND UNLABORED. SPOUSE AT BEDSIDE. CALL NAVARRO IN REACH.
--- NOTE | 2019-04-20 04:00 | NUR ---
PT WITH EYES CLOSED RESPONDED TO VERBAL STIMULI. NO C/O PAIN AT THIS TIME. CALL NAVARRO IN REACH.
--- NOTE | 2019-04-20 05:00 | NUR ---
PT CLEANED OF LIQUID STOOL. PICTURES TAKEN OFF BUTTOCK. DRESSING REMOVED FROM L UPPER BACK, PICTURE TAKEN. NEW FOAM DRESSING APPLIED.
[2019-04-20 05:23] LABS: HEMATOCRIT 38.7 % (39.0-50.0); HEMOGLOBIN 12.2 g/dl (14.0-18.0); IMMATURE GRANULOCYTES 0.7 % (0.0-5.0); MEAN CELL VOLUME 87.6 fL CALC (80.0-100.0); MEAN CORPUSCULAR HGB 27.6 pG CALC (26.0-32.0); MEAN CORPUSCULAR HGB CONC 31.5 g/L CALC (32.0-36.0); NEUT# 15.75 thou/uL (1.82-7.42); RED BLOOD COUNT 4.42 mill/uL (4.70-6.10); RED CELL DISTRI WIDTH 16.5 % (11.5-15.5)
[2019-04-20 05:54] LABS: CREATININE 1.8 mg/dL (0.7-1.3); POTASSIUM 3.8 mmol/l (3.5-5.1)
[2019-04-20 05:55] LABS: BILIRUBIN, TOTAL 1.8 mg/dL (0.0-1.4)
--- NOTE | 2019-04-20 06:00 | NUR ---
PT AWAKE AND ALERT, WATCHING TV. NO DISTRESS NOTED CALL NAVARRO IN REACH.
--- NOTE | 2019-04-20 07:20 | NUR ---
PT RESTING IN BED AWAKE. PT IS ALERT AND ORIENTED X3. SHIFT ASSESSMENT COMPLETED AT THIS TIME. IV PATENT X1. CALL LIGHT IN REACH. WILL CONTINUE TO MONITOR.
--- NOTE | 2019-04-20 07:45 | NUR ---
PT SET UP FOR AM MEAL.
--- NOTE | 2019-04-20 10:00 | NUR ---
PT RESTING IN BED. FAMILY IN ROOM. RESP ARE EVEN AND UNLABORED. NO DISTRESS NOTED. CALL LIGHT IN REACH. WILL CONTINUE TO MONITOR.
--- NOTE | 2019-04-20 11:30 | NUR ---
PT SET UP FOR NOON MEAL AT THIS TIME
--- NOTE | 2019-04-20 12:21 | NUR ---
PT RESTING IN BED WATCHING TV. FAMILY AT BEDSIDE. RESP ARE EVEN AND UNLABORED. NO DSITRESS NOTED. CALL LIGHT IN REACH. WILL CONTINUE TO MONITOR.
--- NOTE | 2019-04-20 13:28 | NUR ---
KOROMA CHANGED 18FR PLACED USING STERILE TECHNIQUE BY Felton IQBAL RN.
--- NOTE | 2019-04-20 16:00 | NUR ---
PT RESTNG IN BED. MULTIPLE FAMILY MEMBERS IN ROOM. RESP ARE EVEN AND UNLABORED. NO DISTRESS NOTED. CALL LIGHT IN REACH. WILL CONTINUE TO MONITOR.
--- NOTE | 2019-04-20 16:45 | NUR ---
PT TRANSFERRED TO AIR MATTRESS BED X4 STAFF. PT TOLERATED TRANSFER WELL.
--- NOTE | 2019-04-20 16:56 | NUR ---
S: MARIAH FINLEY is a 74 M who presents with sepsis with bilateral pneumonia and possible UTI. He has a history of BPH, CKD Stage 3, pressure ulcers and recurrent UTI. All medications in patient's chart were reviewed. O: VS: BP 118/60, P 88, RR 18,T 98.9 W 105.4 kg, HT 73 in, Scr=1.8, CrCl= 44.5 ml/min A: Blood culture is pending. Urine culture is pending. P: Patient is on cefepime 1g iv q12h. Vancomycin ordered for pharmacy to dose. Start Vancomycin 1500 mg IV Q24H. Vancomycin trough is drawn before the 4th dose on 04/22/19@2130. Vancomycin goal trough is between 15-20 mcg/ml. Pharmacy will follow and or advise on antibiotics use as needed.
--- NOTE | 2019-04-20 17:28 | NUR ---
PT SET UP FOR PM MEAL
--- NOTE | 2019-04-20 19:25 | NUR ---
PATIENT IS ALERT AND ORIENTED X3. PATIENT ON 2L/MIN NC. LAYS WITH HOB 30 DEGREES. NO ACUTE DISTRESS SHOWN. KOROMA CATH INTACT, HEAD TO TOE NURSING ASSESSMENT PERFORMED. AIR MATRESS IN PLACE. POC FOR TONIGHT DISCUSSED. DENIES PAIN. NO SOB NOTED. AFEBRILE. PACED ON TELEMETRY. SATS GREATER THAN 95%. R-CHEST PORT INTACT. CALL LIGHT WITHIN REACH.
--- NOTE | 2019-04-20 19:44 | NUR ---
PT REQUESTS PATIENT PHONE, PROVIDED. TALKA TO HIS ON PHONE.
--- NOTE | 2019-04-20 22:31 | NUR ---
PATIENT IS LAYS WITH HB 30 DEGREES, RESTS WITH EYES CLOSED. CALL LIGHT WITHIN REACH.
[2019-04-21] VITALS (12 sets, daily range): BP systolic 90–122; BP diastolic 48–69
[~2019-04-21] MED LIST changes: +HYDROCORTISONE1 % TOP; +ZOFRAN4 MG/TAB PO; +[UNRECOGNIZED DRUG - OTHER] TOP
--- NOTE | 2019-04-21 02:50 | NUR ---
PATIENT RESTS WITH EYES CLOSED. NO ACUTE DISTRES SSHOWN. CALL LIGHT ITHIN REACH.
--- NOTE | 2019-04-21 04:34 | NUR ---
PATIENT LAYS WITH HOB 45 DEGREES. IS AWAKE, ASKS WHAT TIME IT IS, NO ACUTE DISTRESS SHOWN. CALL LIGHT WITHIN REACH.
[2019-04-21 05:44] LABS: HEMATOCRIT 35.1 % (39.0-50.0); HEMOGLOBIN 10.7 g/dl (14.0-18.0); MEAN CELL VOLUME 89.3 fL CALC (80.0-100.0); MEAN CORPUSCULAR HGB 27.2 pG CALC (26.0-32.0); MEAN CORPUSCULAR HGB CONC 30.5 g/L CALC (32.0-36.0); RED BLOOD COUNT 3.93 mill/uL (4.70-6.10); RED CELL DISTRI WIDTH 16.5 % (11.5-15.5)
[2019-04-21 06:12] LABS: CREATININE 1.6 mg/dL (0.7-1.3); POTASSIUM 3.6 mmol/l (3.5-5.1)
--- NOTE | 2019-04-21 06:13 | NUR ---
PATIENT AWAKENS EASILY WHEN SPOKEN TO, NO COMPLAINTS OR NEEDS AT THIS TIME. CALL LIGHT WITHIN REACH.
--- NOTE | 2019-04-21 06:45 | NUR ---
RECIEVED REPORT FROM WHITLEY HASSAN. ASSUMED PT CARE.
--- NOTE | 2019-04-21 08:00 | NUR ---
PT GIVEN ICU CORDLESS PHONE PER PT REQUEST TO CALL .
--- NOTE | 2019-04-21 08:25 | NUR ---
DR. IBARRA AT [facility] FOR ASSESSMENT AND TO DISCUSS PLAN OF CARE. NEW ORDERS RECIEVED.
--- NOTE | 2019-04-21 10:02 | NUR ---
PT GIVEN A COMPLETE BED BATH, SHAVED, KOROMA CARE PROVIDED. FULL LINEN CHANGE. PT TOLERATED WELL. CALL LIGHT IN REACH. WILL MONITOR.
--- NOTE | 2019-04-21 10:17 | NUR ---
PRELIMINARY BLOOD CULTURE RESULTS CALLED TO DR IBARRA, 2 SETS GRAM POSITIVE COCCI. PT IS ON VANCOMYCIN, NO NEW ORDERS ENTERED
--- NOTE | 2019-04-21 12:20 | NUR ---
PT RESTING IN BED. EYES CLOSED. CALL LIGHT IN REACH, RESPIRATIONS EVEN/UNLABORED. WILL MONITOR.
--- NOTE | 2019-04-21 13:56 | NUR ---
PT STATED HE THOUGHT HE HAD A BM, PT GIVEN GOOD LUCA CARE AND KOROMA CARE. KOROMA REMAINS PATENT, DRAINING TO BSC VIA GRAVITY. CALL LIGHT IN REACH. WILL MONITOR.
--- NOTE | 2019-04-21 16:06 | NUR ---
PT SITTING IN BED, TALKING ON ICU PORTABLE PHONE, OFFERS NO COMPLAINTS AT THIS TIME. CALL LIGHT IN REACH. WILL MONITOR.
--- NOTE | 2019-04-21 17:37 | NUR ---
PT FAMILY AT BEDSIDE FOR VISIT.
--- NOTE | 2019-04-21 18:31 | NUR ---
PT SITTING UP IN BED, WATCHING TV. CALL LIGHT IN REACH. WILL MONITOR.
--- NOTE | 2019-04-21 19:45 | NUR ---
PATIENT LAYS WITH HOB NEAR 45 DEGREES. WATCHES TV. ALERT AND ORIENTED X4. CONVERSATES AND LAUGHS. DENIES PAIN. HEAD TO TOE NUSING ASSESSMENT PERFORMED. ON RA, SATS 90%-91%, PATIENT REPORTS HE DOES NOT NEED HIS NC ON RIGHT NOW, NO SOB NOTED. POC FOR TONIGHT DISCUSSED, PT AGREES. R-CHEST PORT INTACT, NS INFUSING AT 10 ML/HR. LOTION APPLIED TO FACE DUE TO PATIENT REPORTS ITCHINESS FROM DRYNESS DUE TO HIM BEING SHAVED TODAY. KOROMA CATH INTACT. PACED ON TELEMETRY. AFEBRILE. AIR MATRESS INTACT. CALL LIGHT WITHIN REACH. HEEL PROTECTERS INTACT.
--- NOTE | 2019-04-21 22:20 | NUR ---
PAENT WAS CLEANED UP, HAD A SCANT AMOUNT OF CLEAR MUCOUSY BM. PERICARE PROVIDED. PATIENT WAS ABLE TO TURN WITH ASSISTANCE.
[2019-04-22] VITALS (8 sets, daily range): BP systolic 108–119; BP diastolic 56–64
--- NOTE | 2019-04-22 03:08 | NUR ---
PATIENT EASILY AWAKENS WHWN SPOKEN TO, LEADS FIXED FOR HIS HEART MONITOR. REQUESTS ICED WATER, PROVIDED. NO ACUTE DISTRESS SHOWN. CALL LIGHT WITHIN REACH.
--- NOTE | 2019-04-22 04:01 | NUR ---
PT RESTS WITH EYES CLOSED. CALL LIGHT WITHIN REACH.
[2019-04-22 05:27] LABS: HEMATOCRIT 36.6 % (39.0-50.0); HEMOGLOBIN 11.3 g/dl (14.0-18.0); MEAN CORPUSCULAR HGB 27.2 pG CALC (26.0-32.0); MEAN CORPUSCULAR HGB CONC 30.9 g/L CALC (32.0-36.0); RED BLOOD COUNT 4.16 mill/uL (4.70-6.10); RED CELL DISTRI WIDTH 16.1 % (11.5-15.5)
[2019-04-22 05:47] LABS: CREATININE 1.7 mg/dL (0.7-1.3); POTASSIUM 3.4 mmol/l (3.5-5.1)
--- NOTE | 2019-04-22 06:14 | NUR ---
PATIENT LAYS WITH HOB NEAR 45 DEGREES. REST WITH EYES CLOSED, AWAKENS EASILY WHEN SPOKEN TOO, NO NEEDS AT THIS TIME. CALL LIGHT WITHIN REACH.
--- NOTE | 2019-04-22 06:45 | NUR ---
RECIEVED REPORT FROM WHITLEY HASSAN. ASSUMED PT CARE.
--- NOTE | 2019-04-22 07:30 | NUR ---
PT A&OX4, ABLE TO MAKE NEEDS KNOWN. RESPIRATIONS EVEN/UNLABORED, SA02@92%RA, LS CLEAR IN UPPER LOBES/DIMINISHED BASES. PT REMAINS PACED ON TELEMETRY, HR 87. PT DENIES CP, SOB OR DISTRESS AT THIS TIME. ABDOMEN DISTENDED, NON-TENDER, LBM 2-27-20. BSX4 ACTIVE. AFEBRILE. CALL LIGHT IN REACH.
--- NOTE | 2019-04-22 08:15 | NUR ---
DR. IBARRA AT BEDSIDE FOR ASSESSMENT AND TO DISCUSS PLAN OF CARE. NEW ORDERS RECIEVED.
--- NOTE | 2019-04-22 08:30 | NUR ---
DAUGHTER IN LAW AT BEDSIDE, NUMBER LEFT IN CHART TO BE NOTIFIED AT TRANSFER. PAVAN DAMIAN [phone]. PER PT REQUEST.
--- NOTE | 2019-04-22 08:46 | NUR ---
NOTIFIED [facility], SPOKE WITH KIRILL@ [phone]. FAXED FACESHEET FOR PENDING TRANSFER. REPORT GIVEN.
--- NOTE | 2019-04-22 09:45 | NUR ---
KIRILL FROM [facility] CALLED BACK, PT ACCEPTED PT TO DR. IFEANYI CRAFT. BED ASSIGNMENT PENDING. PT UPDATED.
--- NOTE | 2019-04-22 10:00 | NUR ---
ZULEYMA FROM IVT AT BEDSIDE FOR NEW IV START TO RAC 22G. R CHEST PORT USE DISCONTINUED.PT TOLERATED WELL.
--- NOTE | 2019-04-22 11:29 | NUR ---
PT GIVEN ICU PORTABLE PHONE PER REQUEST. PT TALKING ON PHONE WITH .
--- NOTE | 2019-04-22 12:37 | NUR ---
ARRIVED AT BEDSIDE FOR VISIT.
--- NOTE | 2019-04-22 14:30 | NUR ---
KIRILL FROM [facility] TRANSFER CALLED WITH BED ASSIGNMENT. PT ASSIGNED TO BED 779A, REPORT TO BE CALLED TO [phone]. PT UNPDATED, REMAINS AT BEDSIDE.
--- NOTE | 2019-04-22 14:48 | NUR ---
[facility] NOTIFIED, SPOKE WITH ANSHU CARUSO FOR BUS 30MIN. FAMILY UPDATED. CALL PLACED TO PAVAN DAMIAN PT REQUESTED. PT MEDICATED WITH PRN PAIN MEDICATION REQUESTED FOR TRANSPORT.
--- NOTE | 2019-04-22 14:56 | NUR ---
KASSIE MCINTYRE FROM [facility] AT [facility] FOR VISIT.
--- NOTE | 2019-04-22 15:09 | NUR ---
[facility] ARRIVED BEDSIDE FOR TRANSPORT. REPORT GIVEN.
--- NOTE | 2019-04-22 15:26 | NUR ---
PT LEFT VIA STRETCHER WITH [facility]. PT TOLERATED WELL. CALLED REPORT TO [facility] [phone], SPOKE WITH WHITLEY ARGUETA.
--- NOTE | 2019-04-22 18:14 | NUR ---
CALLED [facility] AND SPOKE TO STARLA REGARDING APPLIED BEHAVIOR SPECIALIST FOR MATTRESS. WAS GIVEN BACK THE SAME CONFIRMATION NUMBER FOR PICK WHICH WAS [phone].
== END 2019-04-22 15:26 | disposition short-term general hospital (02) | DRG 871 ==
PROVIDERS: Family Medicine; ADMIT Internal Medicine
DX: A41.02 Sepsis due to Methicillin resistant Staphylococcus aureus (principal); J18.9 Pneumonia, unspecified organism; N39.0 Urinary tract infection, site not specified; G82.20 Paraplegia, unspecified; I13.0 Hypertensive heart and chronic kidney disease with heart failure and stage 1 through stage 4 chronic kidney disease, or unspecified chronic kidney disease; N18.3 Chronic kidney disease, stage 3 (moderate); I50.9 Heart failure, unspecified; I71.4 Abdominal aortic aneurysm, without rupture; I25.10 Atherosclerotic heart disease of native coronary artery without angina pectoris; E78.5 Hyperlipidemia, unspecified; N40.0 Benign prostatic hyperplasia without lower urinary tract symptoms; M19.90 Unspecified osteoarthritis, unspecified site; L89.101 Pressure ulcer of unspecified part of back, stage 1; B96.5 Pseudomonas (aeruginosa) (mallei) (pseudomallei) as the cause of diseases classified elsewhere; Z95.1 Presence of aortocoronary bypass graft; Z95.5 Presence of coronary angioplasty implant and graft; Z87.891 Personal history of nicotine dependence; Z95.810 Presence of automatic (implantable) cardiac defibrillator; Z87.440 Personal history of urinary (tract) infections; Z74.01 Bed confinement status; Z96.0 Presence of urogenital implants; Z95.828 Presence of other vascular implants and grafts
CPT/HCPCS: J0131; J0692; J3370

== ENCOUNTER 2019-05-21 | Inpatient (IN) | payer MEDICARE ==
[2019-05-21 20:40] VITALS: BP 96/50
--- NOTE | 2019-05-21 20:50 | NUR ---
PT TO ROOM 15 VIA EMS. MAX ASSIST W/TRANSFER TO STRETCHER. PT A&OX3.
--- NOTE | 2019-05-21 21:05 | NUR ---
BLADDER SCAN OBTAINED. 0ML URINE. PATIENT HAS KOROMA CATH IN PLACE. ABLE TO IRRIGATE. PATIENT STATES SINCE RETURNING HOME 4 DAYS AGO HE HAS HAD A POOR APPETITE. STATES HE IS HAVING DRY HEAVES. HOME HEALTH NURSE REPORTS FEVER YESTERDAY AND 100.3 TODAY. 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 PATIENT UNDRESSED INTO A GOWN. BED SHEETS FROM HOME REMOVED FROM UNDERNEATH PATIENT.
--- NOTE | 2019-05-21 21:26 | NUR ---
RESPIRATORY AT BEDSIDE FOR ABG. PATIENT ONLY C/O BEING CHILLED AT PRESENT. GIVEN LIGHT SHEET TO COVER. BP IS LOW. MD AWARE. AWAITING ORDERS.
[2019-05-21 21:35] LABS: HEMATOCRIT 37.5 % (39.0-50.0); IMMATURE GRANULOCYTES 0.9 % (0.0-5.0); MEAN CORPUSCULAR HGB 27.5 pG CALC (26.0-32.0); NEUT# 10.41 thou/uL (1.82-7.42); RED BLOOD COUNT 4.36 mill/uL (4.70-6.10); RED CELL DISTRI WIDTH 17.5 % (11.5-15.5)
[2019-05-21 21:41] LABS: ALBUMIN 3.1 g/dL (3.2-5.0); BILIRUBIN, TOTAL 1.7 mg/dL (0.0-1.4); TOTAL PROTEIN 6.5 g/dL (6.3-8.2)
[2019-05-21 21:50] LABS: CREATININE 4.3 mg/dL (0.7-1.3)
[2019-05-21 21:56] LABS: ACT PARTIAL THROMBO TIME 32.9 SECONDS (20.0-32.5); D-DIMER 16.21 mg/L (0.19-0.60); INTERNATIONAL NORMALIZED RATIO 1.1 RATIO (0.7-1.3); PROTHROMBIN TIME 11.7 SECONDS (9.0-12.5)
--- NOTE | 2019-05-21 21:57 | NUR ---
LEVOPHED DRIP INFUSING BP IMPROVED TO 100/48
[2019-05-21 22:16] LABS: MAGNESIUM 2.1 mg/dL (1.6-2.3)
--- NOTE | 2019-05-21 22:24 | NUR ---
BP IMPROVED TO 112/51 LEVOPHED MAINTAINED AT 11MCG/MIN. IV SITES HEALTHY. PT A&OX3. VSS.
[2019-05-21 22:27] LABS: URINE BILIRUBIN - DIPSTICK NEGATIVE (NEGATIVE); URINE BLOOD DIPSTICK LARGE (NEGATIVE); URINE COLOR YELLOW; URINE GLUCOSE - DIPSTICK NEGATIVE (NEGATIVE); URINE KETONE NEGATIVE (NEGATIVE); URINE NITRITE - DIPSTICK NEGATIVE (Negative); URINE PROTEIN - DIPSTICK 30 mg/dL (NEG-TRACE)
[2019-05-21 22:28] LABS: URINE LEUK ESTERASE MODERATE (NEGATIVE)
[2019-05-21 22:35] LABS: URINE BACTERIA FEW hpf; URINE RBC TNTC RBC/hpf (0-5); URINE SQUAMOUS EPITHELIAL CELL FEW EPI/hpf (0-FEW); URINE WBC 20-50 WBC/hpf (0-5); URINE YEAST FEW hpf
--- NOTE | 2019-05-21 23:04 | NUR ---
COVID 19 SWAB COLLECTED FROM LEFT NARE NASOPHARYNGEAL. PT TOLERATED WELL.
--- NOTE | 2019-05-21 23:08 | NUR ---
ATTEMPT TO CALL REPORT TO ICU. NURSE UNAVAILABLE AT THIS TIME.
--- NOTE | 2019-05-21 23:17 | NUR ---
REPORT CALLED TO MARIOLA IN ICU. PT STABLE AT THIS TIME CONTINUES ON LEVOPHED AT 11 MCG/MIN. IV SITE HEALTHY. KOROMA CATH PATENT TO BSDB. DRAINING APPROX 50 ML URINE TO BSDB.
--- NOTE | 2019-05-21 23:30 | NUR ---
PT TO ICU VIA STRETCHER ON DYE RANGE OPERATOR. IV SITES HEALTHY. LEVOPHED AND VANCO INFUSING. O2 2L/M VIA NC. PT APPREARS STABLE AT THIS TIME.
--- NOTE | 2019-05-21 23:40 | NUR ---
74 yr old white male admitted to icu3 per stretcher from er. transferred x4 to bed. bed weight obtained. no acute resp distress. asked pt if he drank po fluids & pt said "yes i drink a lot." instructed pt this program writer found it hard to believe b/c bladder scan showed no uop in bladder in er & labwork results were bad. pt has had VERY frequent admissions to this facility one of which was in march, was sent to [facility] for removal of port, sent to rehab then home then back to this facility thursday. pt may need permanent placement. will put consult for oncology social worker. o2 cont per nc. surveillance system monitor shows sinus rhythm 1st degree avb pvcs hr 88. #22 lfa vanco infusing. #20 rfa ns began @ 125cchr as ordered, levo infusing @ 11mcg/min. arora cath in place. approx 5occ dk stu cloudy urine in bag. history obtained per pt er record & old chart. oriented to room. fall, air/contact precautions initiated.
[2019-05-22] VITALS (45 sets, daily range): BP systolic 76–124; BP diastolic 40–56
--- NOTE | 2019-05-22 02:00 | NUR ---
awake. turned & repositioned x2 assisted & no attempted assist from pt. drank 1 glass of h20. no n/v. another glass provided.
--- NOTE | 2019-05-22 04:15 | NUR ---
blood drawn & sent to lab.
[2019-05-22 05:18] LABS: HEMATOCRIT 38.1 % (39.0-50.0); HEMOGLOBIN 12.1 g/dl (14.0-18.0); IMMATURE GRANULOCYTES 0.9 % (0.0-5.0); MEAN CORPUSCULAR HGB 27.6 pG CALC (26.0-32.0); MEAN CORPUSCULAR HGB CONC 31.8 g/dL CAL (32.0-36.0); NEUT# 8.96 thou/uL (1.82-7.42); RED BLOOD COUNT 4.38 mill/uL (4.70-6.10); RED CELL DISTRI WIDTH 17.4 % (11.5-15.5)
[2019-05-22 05:23] LABS: CREATININE 4.3 mg/dL (0.7-1.3)
--- NOTE | 2019-05-22 06:00 | NUR ---
awake. no distress. pvc monitor shows sinus rhythm hr 75.
--- NOTE | 2019-05-22 06:45 | NUR ---
REPORT RECEIVED. CARE ASSUMED.
--- NOTE | 2019-05-22 07:00 | NUR ---
SPOUSE PHONED FOR UPDATE. ASKED SPOUSE TO BRING PT PHONE PER PT REQUEST AND DROP IT OFF AT ER. SPOUSE VERBALIZED UNDERSTANDING.
--- NOTE | 2019-05-22 07:40 | NUR ---
PT RESTING IN BED AWAKE. PT IS ALERT AND ORIENTED X3. SHIFT ASSESSMENT COMPLETED AT THIS TIME. IV PATENT X1. CALL LIGHT IN REACH. WILL CONTINUE TO MONITOR.
--- NOTE | 2019-05-22 08:10 | NUR ---
CALLED [facility] REGARDING AN AIR MATTRESS. SPOKE TO CHILANGO WAS GIVEN CONFIRMATION NUMBER OF AIR MATTRESS [phone].
--- NOTE | 2019-05-22 09:07 | NUR ---
SPOUSE CALLED FOR AN UPDATE. UPDATE PROVIDED. ASKED AGAIN FOR SPOUSE TO BRING CELL PHONE. SPOUSE STATES SHE WILL HAVE SONE BRING IT LATER.
[2019-05-22] MEDS ORDERED: PROSCAR5 MG PO (09:14)
[2019-05-22] MEDS ORDERED: AMIODARONE200 MG PO (09:14)
[2019-05-22] MEDS ORDERED: METOPROL TAR25 MG PO (09:14)
[2019-05-22] MEDS ORDERED: PRAVASTATIN SOD20 MG PO (09:15)
--- NOTE | 2019-05-22 09:15 | NUR ---
SUZI LUCAS AT BEDSIDE.
--- NOTE | 2019-05-22 10:00 | NUR ---
PT RESTING IN BED AT THIS TIME. IV PATENT X1. CALL LIGHT IN REACH. WILL CONTINUE TO MONITOR.
--- NOTE | 2019-05-22 10:32 | NUR ---
SPOKE WITH KIRILL AT [facility] TO INITIATE TRANSFER
--- NOTE | 2019-05-22 11:00 | NUR ---
DR CABEZAS AT BEDSIDE AT THIS TIME.
--- NOTE | 2019-05-22 12:00 | NUR ---
PT RESTING IN BED AWAKE. RESP ARE EVEN AND UNLABORED. IV PATENT X1. CALL LIGHT IN REACH. WILL CONTINUE TO MONITOR.
--- NOTE | 2019-05-22 13:31 | NUR ---
DAUGHTER CALLED FOR UPDATE. UPDATE PROVIDED.
--- NOTE | 2019-05-22 13:40 | NUR ---
SPOKE WITH [facility]. ACCEPTED. AWAITING ICU BED. EXPLAINED THAT WER WERE WEANING LEVOPHED TO [facility]. [facility] SAID IF WEANED OFF COMPLETELY AND BP REMAINS STABLE THEN WILL ASSIGN A PCU BED
--- NOTE | 2019-05-22 14:37 | NUR ---
KIRILL WITH [facility] TRANSFER CALLED WITH BED ASSIGNMENT 4R04A REPORT CAN BE CALLED TO [phone]. CHRISTIANO WITH [facility] NOTIFIED ETA FOR [facility] IS 3-4 HOURS
--- NOTE | 2019-05-22 15:50 | NUR ---
PT HAD LARGE LIQUID CLEAR YELLOW BM. NOTIFIED SUZI LUCAS. ORDERS RECEIVED. NOTIFIED UNABLE TO GET A NEW BLOOD SAMPLE. OK WITH ADDING THE TEST ON AND CANCELLING D-DIMER
[2019-05-22 16:18] LABS: C-REACTIVE PROTEIN 25.8 mg/dL (0-0.9)
--- NOTE | 2019-05-22 16:40 | NUR ---
[facility] CALLED AND THERE WILL BE A NEW BED ASSIGNMENT.
--- NOTE | 2019-05-22 17:37 | NUR ---
KIRILL WITH [facility] CALLED NEW BED ASSIGNMENT [id number] REPORT TO BE CALLED TO [phone].
--- NOTE | 2019-05-22 18:29 | NUR ---
[facility] ARRIVED REPORT PROVIDED. [facility] CALLED FOR REPORT. NURSE STATED THEY WOULDCALL BACK FOR REPORT. NOTIFIED WELL.
--- NOTE | 2019-05-22 19:05 | NUR ---
REPORT CALLED TO TUCKER AT [facility]
--- NOTE | 2019-05-23 07:36 | NUR ---
PRELIMINARY BLOOD CULTURES FAXED TO MICHOACANO ETIENNE IN ICU AT [facility] FAX# [phone]
--- NOTE | 2019-05-24 07:16 | NUR ---
FINAL BLOOD CULTURE RESULTS CALLED AND FAXED TO WHITLEY RYAN AT [facility] ICU, 05/27 GROWING MRSA. FAX#[phone]
--- NOTE | 2019-05-24 07:36 | NUR ---
Covid results (negative) faxed to [facility] [phone] [facility] ICU at [phone] tp advise staff that Covid results were faxed.
== END 2019-05-22 17:35 | disposition short-term general hospital (02) | DRG 698 ==
PROVIDERS: Family Medicine; Nurse Practitioner Family; ADMIT Internal Medicine
DX: T83.511A Infection and inflammatory reaction due to indwelling urethral catheter, initial encounter (principal); A41.9 Sepsis, unspecified organism; J18.9 Pneumonia, unspecified organism; R65.20 Severe sepsis without septic shock; N17.9 Acute kidney failure, unspecified; I13.0 Hypertensive heart and chronic kidney disease with heart failure and stage 1 through stage 4 chronic kidney disease, or unspecified chronic kidney disease; I50.22 Chronic systolic (congestive) heart failure; G82.20 Paraplegia, unspecified; N39.0 Urinary tract infection, site not specified; N18.3 Chronic kidney disease, stage 3 (moderate); I25.10 Atherosclerotic heart disease of native coronary artery without angina pectoris; I48.91 Unspecified atrial fibrillation; L89.152 Pressure ulcer of sacral region, stage 2; D63.1 Anemia in chronic kidney disease; N40.0 Benign prostatic hyperplasia without lower urinary tract symptoms; Y84.6 Urinary catheterization as the cause of abnormal reaction of the patient, or of later complication, without mention of misadventure at the time of the procedure; Z95.5 Presence of coronary angioplasty implant and graft; Z87.891 Personal history of nicotine dependence; Z95.810 Presence of automatic (implantable) cardiac defibrillator; Z95.1 Presence of aortocoronary bypass graft; Z87.440 Personal history of urinary (tract) infections; Z20.828 Contact with and (suspected) exposure to other viral communicable diseases
CPT/HCPCS: S0164

== ENCOUNTER 2019-12-13 17:13 | Inpatient (IN) | payer MEDICARE ==
[~2019-12-13] VITALS: Ht 185.4 cm; Wt 111.3 kg
[~2019-12-13 17:13] MED LIST changes: +AMIODARONE200 MG PO
--- NOTE | 2019-12-13 17:13 | NUR ---
PT TO ROOM VIA STRETCHER WITH EMS ALERT WITH TACHYPNEA ON NRB MASK AT 15LPM. O2 SAT 98%. PT PALE, CONVERSIVE.
--- NOTE | 2019-12-13 17:35 | NUR ---
Jasmyn AT BEDSIDE FOR ABG
--- NOTE | 2019-12-13 17:50 | NUR ---
LAB WORK OBTAINED INCLUDING BC X 2, FLU AND COVID SWABS AND BLOOD WORK, PT REPSOTIONED FOR COMFORT, RT TO EVAL PER , CALL NAVARRO WITHIN REACH AND PT EASILY VSIBLE FROM NURSE STATION FOR SAFETY
[2019-12-13 17:55] LABS: HEMATOCRIT 35.1 % (39.0-50.0); HEMOGLOBIN 10.4 g/dl (14.0-18.0); IMMATURE GRANULOCYTES 0.3 % (0.0-5.0); MEAN CELL VOLUME 87.8 fL CALC (80.0-100.0); MEAN CORPUSCULAR HGB CONC 29.6 g/dL CAL (32.0-36.0); NEUT# 5.8 thou/uL (1.82-7.42); RED CELL DISTRI WIDTH 16.3 % (11.5-15.5)
[2019-12-13 17:57] LABS: URINE BILIRUBIN - DIPSTICK NEGATIVE (NEGATIVE); URINE BLOOD DIPSTICK MODERATE (NEGATIVE); URINE COLOR YELLOW; URINE GLUCOSE - DIPSTICK NEGATIVE (NEGATIVE); URINE KETONE NEGATIVE (NEGATIVE); URINE NITRITE - DIPSTICK NEGATIVE (Negative); URINE PH 8.5 (4.5-8.0); URINE PROTEIN - DIPSTICK 30 mg/dL (NEG-TRACE); URINE UROBILINOGEN - DIPSTICK 0.2 E.U./dL (0.2)
[2019-12-13 17:59] LABS: URINE LEUK ESTERASE MODERATE (NEGATIVE)
[2019-12-13 18:01] LABS: URINE TRIP PHOS CRYSTALS MANY lpf; URINE WBC 20-50 WBC/hpf (0-5)
[2019-12-13 18:02] LABS: URINE AMORPH SEDIMENT MANY hpf (NONE-FER)
[2019-12-13 18:05] LABS: ALBUMIN 3.4 g/dL (3.2-5.0); ALKALINE PHOSPHATASE 107 u/l (38-126); BUN 22 mg/dL (8-23); CHLORIDE 105 mmol/l (95-108); POTASSIUM 4.1 mmol/l (3.5-5.1); SGOT/AST 15 u/l (19-48); SODIUM 136 mmol/l (137-146)
[2019-12-13 18:10] LABS: BUN/CREATININE RATIO 11 (12-20 (CALC)); GFR 33 ML/MIN (>=60 (CALC)); GFR FOR AFR.AMER. 40 ML/MIN (>=60 (CALC))
[2019-12-13 18:11] LABS: ANION GAP 9 (6-22 (CALC)); BILIRUBIN, TOTAL 0.8 mg/dL (0.0-1.4); CARBON DIOXIDE 26 mmol/l (22-30)
[2019-12-13 18:17] LABS: MYOGLOBIN 37 ng/mL (0 - 121)
--- NOTE | 2019-12-13 19:00 | NUR ---
[address] TO BSD
--- NOTE | 2019-12-13 19:26 | NUR ---
Admission Note Report Given to: WHITLEY DYE Transported by: Wheelchair X Stretcher Transported with: X Nurse Transporter X Patent IV X O2 X Weather Algorithm Scientist Location: X ICU MS2
--- NOTE | 2019-12-13 19:35 | NUR ---
BY STRETCHER TO FLOOR.
[2019-12-13 20:00] VITALS: BP 157/88
[2019-12-13 20:15] VITALS: BP 135/77
--- NOTE | 2019-12-13 20:15 | NUR ---
[id number]- PT. ARRIVED TO THE FLOOR VIA STRETCHER ACCOMPANIED BY ER NURSE, WHITLEY LAWSON. PT. IS UNKEPT AND IN FILTH; PT. IS WASHED UP AND PHOTOS OBTAINTED OF BACK, BUTTOCKS, AND SCROTUM; ALL ARE REDDENED AND SWOLLEN; OPEN AREA NOTED TO RIGHT UPPER BACK AND DUODERM APPLIED; SEE PHOTOS. GENERALIZED SWELLING NOTED. PT. BROUGHT UP ON 50% VENTI MASK AND SPO2 94%. KOROMA CATHETER IN PLACE AND DRAINING CLOUDY YELLOW URINE AT GRAVIY LEVEL; PER PT. HE REPORTS IT WAS CHANGED OUT THIS MONTH ALREADY BY HOME HEALTH, AND THAT THEY CHANGE IT OUT MONTHLY. PT. REPORTS ONLY SYMPTOM WAS SOB X2 DAYS AND REPORTS HES HAD A COUGH FOR A MONTH. PT IS BEDBOUND AND WITH FOOT DROP NOTED AND REPORTS UNABLE TO MOVE BLE. PO FLUIDS OFFERED. CALL LIGHT IS IN REACH. WILL CONTINUE TO MONITOR.
[2019-12-13 20:30] VITALS: BP 132/66
[2019-12-13 20:45] VITALS: BP 94/52
--- NOTE | 2019-12-13 21:15 | NUR ---
PT. RESTING IN BED WITH NO COMPLAINTS. CALL LIGHT IS IN REACH.
[2019-12-13 21:30] VITALS: BP 98/56
[2019-12-13 22:30] VITALS: BP 113/61
[2019-12-14] VITALS (13 sets, daily range): BP systolic 94–128; BP diastolic 43–69
--- NOTE | 2019-12-14 | NUR ---
PT. DENIES NEEDS/PAIN. REPOSITIONED ONTO LEFT SIDE. ENCOURAGED TO CALL FOR ANY NEEDS.SPO2 WNL AND PT. REMAINS WITH VENTI MASK ON 50%. CALL LIGHT IS IN REACH.
--- NOTE | 2019-12-14 01:46 | NUR ---
RESTING IN BED WITH EYES CLOSED; RESP. EVEN AND UNLABORED. VSS. ENCOURAGED TO CALL FOR ANY NEEDS.
--- NOTE | 2019-12-14 04:00 | NUR ---
RESTING IN BED WITH EYES CLOSED; NO DISTRESS NOTED; RESP. EVEN AND UNLABORED; SPO2 99-100% ON 50% VENTI MASK; WILL CONTINUE TO MONITOR.
--- NOTE | 2019-12-14 05:20 | NUR ---
PT. OFFERED MOM AGAIN TO ASSIST WITH BM AND DECLINES AT THIS TIME AND STATES,"IT'LL COME WHEN IT COMES." REPOSITIONED AT THIS TIME AND KOROMA CATHETER EMPTIED OF 1000MLS OF CLOUDY YELLOW URINE. VSS. PO FLUIDS OFFERED. CALL LIGHT IS IN REACH.
[2019-12-14 05:33] LABS: HEMATOCRIT 34.3 % (39.0-50.0); HEMOGLOBIN 10.1 g/dl (14.0-18.0); IMMATURE GRANULOCYTES 0.1 % (0.0-5.0); MEAN CELL VOLUME 88.6 fL CALC (80.0-100.0); MEAN CORPUSCULAR HGB 26.1 pG CALC (26.0-32.0); MEAN CORPUSCULAR HGB CONC 29.4 g/dL CAL (32.0-36.0); NEUT# 5.26 thou/uL (1.82-7.42); RED BLOOD COUNT 3.87 mill/uL (4.70-6.10); RED CELL DISTRI WIDTH 16.4 % (11.5-15.5)
[2019-12-14 05:55] LABS: BILIRUBIN, TOTAL 0.7 mg/dL (0.0-1.4); POTASSIUM 4.3 mmol/l (3.5-5.1)
--- NOTE | 2019-12-14 07:30 | NUR ---
PT A&OX4, ABLE TO MAKE NEEDS KNOWN. PT REMAINS JUNCTIONAL WITH PVC'S, HR 72. PT DENIES CP, SOB OF DISTRESS AT THIS TIME. RESPIRATIONS EVEN/UNLABORED, SA02@100% ON 15LPM VENTI MASK. PT ON R SIDE, REPOSITIONED TO HIGH FOWLERS, BREAKFAST TRAY SET UP, NC APLLIED. PT REMAIN 97-100%. LS CLEAR/DIMINISHED. KOROMA PATENT DRAINING TO BSD VIA GRAVITY, CLOUDY YELLOW OP. ABDOMEN SOFT/NON-TENDER, LBM 10-17-20. CALL LIGHT IN REACH. WILL MONITOR.
--- NOTE | 2019-12-14 07:42 | NUR ---
PT CONSENTED TO PNEUMOCOCCAL VAX, HAS RECEIVED PNEUMOVAX AND PREVNAR BOTH AFTER AGE 63. NO FURTHER PNEUMOCOCCAL VAX INDICATED
--- NOTE | 2019-12-14 08:31 | NUR ---
DR. IBARRA AT BEDSIDE FOR ASSESSMENT AND TO DISCUSS PLAN OF CARE, NEW ORDERS RECIEVED.
--- NOTE | 2019-12-14 08:35 | NUR ---
PT DAUGHTER EZRA DAMIAN CALLED WITH CODE, UPDATE GIVEN.
--- NOTE | 2019-12-14 08:44 | NUR ---
CONSULTATION ORDERS FOR DR. HECTOR. LANEC AHUJA NOTIFIED @ EXT. 810.
--- NOTE | 2019-12-14 09:52 | NUR ---
Patient is screened for PT intervention and no needs are identified at this time`
--- NOTE | 2019-12-14 10:56 | NUR ---
RECIEVED CALL FROM YAYA AHUJA. TO CALL [employer] TO HAVE DEVICE TURNED BACK ON AND GET PRINT OUT OF DEVICE SETTINGS AND BATTERY LIFE.
--- NOTE | 2019-12-14 12:17 | NUR ---
PT DAUGHTER CALLED WITH CODE FOR UPDATE. PT SPOKE WITH ON PORTABLE PHONE. LUNCH TRAY SET UP. PT REPOSITIONED. NO DISTRESS NOTED. CALL LIGHT IN REACH.
--- NOTE | 2019-12-14 13:07 | NUR ---
CALLED [employer] , SPOKE WITH MEENU, SHE IS GOING TO PAGE THE REP. KWAN GARCIA. WILL MONITOR.
--- NOTE | 2019-12-14 13:14 | NUR ---
KWAN JEREZ FROM [employer] CALLED BACK AND ASK TO HAVE THE ER INTERROGATE TO CONFIRM OFF, WHITLEY COLLIER IN ER NOTIFIED.
--- NOTE | 2019-12-14 13:30 | NUR ---
nel, rn from ed up at bedside to interrogate device, unable to utiize interogation device at this time. call place to jc at [phone] to update that he will need to come to bedside. g left.
--- NOTE | 2019-12-14 14:25 | NUR ---
KWAN FROM [employer] NOTIFIED THAT INTERROGATION MACHINE WOULD NOT WORK, HE SUGGESTED TO PLUG IN AND CHARGE FOR OVER AN HOUR AND TRY AGAIN, NOTIFIED WHITLEY COLILER IN ED, HE STATED IT HAS CONTINUED TO KEEP PLUGGED IN AND NOT HOLDING AND CHARGE, DR. IBARRA UPDATED. KWAN STATED A REP WOULD NOT BE AVAILABLE TODAY.
--- NOTE | 2019-12-14 14:46 | NUR ---
PT ATTEMPTED TO ENCOURAGE PATIENT TO PARTICIPATE IN PHYSICAL THERAPY EVALUATION. HOWEVER, PATIENT ADAMANTLY REFUSED TO BE EVALUATED AND TREATED.
--- NOTE | 2019-12-14 15:40 | NUR ---
CALLED [facility] SPOKE TO LUCAS AT GIVEN CONFIRMATION NUMBER [phone].
--- NOTE | 2019-12-14 16:19 | NUR ---
PT REPOSITIONED, RESPIRATIONES EVEN/UNLABORED, SA02@97%, GA PUENTES PATENT DRAINING TO BSD VIA GRAVITY. CALL LIGHT IN REACH. WILL MONITOR.
--- NOTE | 2019-12-14 17:19 | NUR ---
PT SON CALLED, CALL TRANSFERRED TO PORTABLE PHONE AND TAKEN TO ROOM.
--- NOTE | 2019-12-14 18:17 | NUR ---
PT REPOSITIONED, NO DISTRESS NOTED AT THIS TIME. CALL LIGHT IN REACH. WILL MONITOR.
--- NOTE | 2019-12-14 19:10 | NUR ---
RECEIVED PT AWAKE AND ALERT. PT RELATED HE WAS COLD AND WANTED BLANKET OVER HIS HEAD. PT RELATED HE SLEEPS LIKE THAT AT HOME. NO DISTRESS NOTED. CALL NAVARRO IN REACH.
--- NOTE | 2019-12-14 22:00 | NUR ---
PT WITH COVER OVER HEAD. NO DISTRESS NOTED. CALL NAVARRO IN REACH.
[2019-12-15] VITALS (10 sets, daily range): BP systolic 94–127; BP diastolic 47–63
--- NOTE | 2019-12-15 | NUR ---
PT WITH BLANKEY OVER HEAD. NO DISTRESS NOTED. CALL NAVARRO IN REACH.
--- NOTE | 2019-12-15 02:00 | NUR ---
TRANSFERRED PT TO AIR MATTRESS. NO DISTRESS OR NEEDS AT THIS TIME. CALL NAVARRO IN REACH.
--- NOTE | 2019-12-15 04:00 | NUR ---
PT WITH BLANKET OVER HEAD, NO DISTRESS NOTED. CALL NAVARRO IN REACH.
--- NOTE | 2019-12-15 04:13 | NUR ---
LAB AT BEDSIDE.
[2019-12-15 04:59] LABS: CREATININE 2.3 mg/dL (0.7-1.3)
--- NOTE | 2019-12-15 06:00 | NUR ---
PT WITH BLANKET OVER EYES , LOWERED WHEN RN ENTERED ROOM. NO DISTRESS NOTED. CALL NAVARRO IN REACH.
--- NOTE | 2019-12-15 06:45 | NUR ---
RECIEVED REPORT FROM [facility]. ASSUMED PT CARE.
--- NOTE | 2019-12-15 08:00 | NUR ---
PT RESTING IN BED, A&OX4, ABLE TO MAKE NEEDS KNOWN. RESPIRATIONS EVEN/ UNLABORED, EXERTIONAL SOB. SA02@98% ON 5LPM/HF/NC. LS CLEAR/DIMINISHED THROUGHOUT. CONTINUES WITH GENERALIZED EDEMA, ABDOMEN SOFT, DISTENDED, NON TENDER. KOROMA REMAINS PATENT, DRAINING TO BSD VIA GRAVITY. AIR MATTRESS IN PLACE. CALL LIGHT IN REACH. WILL MONITOR.
--- NOTE | 2019-12-15 08:21 | NUR ---
PT DAUGHTER CALLED WITH CODE, UPDATE GIVEN.
--- NOTE | 2019-12-15 08:50 | NUR ---
DR. IBARRA AT BEDSIDE FOR ASSESSMENT AND TO DISCUSS PLAN OF CARE, NEW ORDERS RECIEVED. O2 DECREASED TO 5LPM/HF/NC. CALL LIGHT IN REACH. WILL MONITOR.
--- NOTE | 2019-12-15 09:48 | NUR ---
KWAN MERAZ FROM [employer] AT BEDSIDE TO INTERROGATE DEVICE, TURNED PT DEFIBRILLATOR ON, KWAN STATED HE WOULD SEND DR. HECTOR THE SETTINGS AND BATTERY LIFE. PT TOLERATED WELL. CALL LIGHT IN REACH. WILL MONITOR.
--- NOTE | 2019-12-15 09:52 | NUR ---
US AT BEDSIDE FOR ECHO.
--- NOTE | 2019-12-15 11:45 | NUR ---
PT COVID SWAB RESULTS BACK NEGATIVE. PT, PT DAUGHTER Tash Shearer, AND DR. IBARRA NOTIFIED OF RESULTS.
--- NOTE | 2019-12-15 12:30 | NUR ---
PT DAUGHTER EZRA RICKIE AT BEDSIDE FOR VISIT.
--- NOTE | 2019-12-15 14:20 | NUR ---
PT DOWNGRADED TO MS WITH TELE, PT TO BE TRANSFERRED TO ROOM# [id number].
--- NOTE | 2019-12-15 15:40 | NUR ---
PT note Attempted evaluation and spoke tothe patient about his home situation. He has a home health phyiscal therpaist coming to see him. He absolutely refuses the idea of an ECF. He would like to return home to his spouse and his home health services. I asked how he mobilized, He states he had a lift but it stopped working so he threw it away. He has not ambulated in over 6 years according to his own report. He would benefit from PT but has thus far refused our attempts "until he is ready". He would also benefit from a lawrence lift to decrease the burden of care
--- NOTE | 2019-12-15 16:20 | NUR ---
PT RESTING IN BED WITH COVERS PULLED OVER HEAD, NO DISTRESS NOTED AT THIS TIME.
--- NOTE | 2019-12-15 16:50 | NUR ---
REPORT CALLED TO WHITLEY KINNEY. PT EATING DINNER AND WILL BE TRANSPORTED AFTER DONE.
--- NOTE | 2019-12-15 17:09 | NUR ---
PT SON AT BEDSIDE FOR VISIT.
--- NOTE | 2019-12-15 17:38 | NUR ---
PT ARRIVED TO THE FLOOR VIA BED ACCOMPANIED BY STAFF AND FAMILY. PT PROVIDED WITH ICE WATER, AND EMESIS BAG TO "SPIT IN". PT DENIES ANY APIN OR DISCOMFORT AT THIS TIME. SAFETY PRECAUTIONS IN PLACE. WILL CONTINUE TO MONITOR.
--- NOTE | 2019-12-15 17:56 | NUR ---
PT TRANSFERRED TO [facility], SON REMAINS AT BEDSIDE.
--- NOTE | 2019-12-15 20:04 | NUR ---
ASSIGNMENT ACCEPTED FROM NURSE DAYANA. ASSESSMENT AND VITALS COMPLETED AT THIS TIME. RESPIRATIONS ARE DIMINISHED ON 5 LITERS OF 02. HEART RHYTHM IS REGULAR WITH TELE IN PLACE. BOWEL SOUNDS ARE ACTIVE IN ALL QUADRANTS, LAST REPORTED BM 12/10/2019. RADIAL AND PEDAL PULSES ARE STRONG WITH NORMAL CAPILLARY REFILL. #20G IN RFA, SITE APPEARS HEALTHY AND PATENT. PT DENIES OF ANY PAIN OR DISCOMFORTS AT THIS TIME. ALL SAFETY PRECAUTIONS ARE IN PLACE WITH CALL LIGHT IN REACH. WILL CONTINUE TO MONITOR.
--- NOTE | 2019-12-16 00:04 | NUR ---
PT LAYING IN BED WATCHING TV, APPEARS COMFORTABLE AND IN NO DISTRESS. RESPIRATIONS REGULAR AND UNLABORED. ITEMS REMAIN WITHIN REACH, CALL NAVARRO REMAINS WITHIN REACH. BED REMAINS LOCKED AND IN LOW POSITION WITH BEDRAILS UP X2. WILL CONTINUE TO MONITOR.
[2019-12-16 00:10] VITALS: BP 103/57
[2019-12-16 04:50] VITALS: BP 110/42
--- NOTE | 2019-12-16 07:30 | NUR ---
PT. ALERT AND ORIENTED X 3. IV PATENT RFA 20G. ON 02 AT 5 L/MIN. FOR SAT OF 94-95%. MAX ASSIT OF 1. ON AN AIR MATTRESS, CHRONIC KOROMA CATH DRAINING CLEAR YELLOW URINE. ANTIFUNGAL POWDER TO GROIN AND SCROTAL AREA WILL MONITOR.
[2019-12-16 09:00] VITALS: BP 110/64
[2019-12-16 10:30] VITALS: BP 114/65
--- NOTE | 2019-12-16 11:00 | NUR ---
PT. WANTS TO GET A BATH TONIGHT IN HOPES TO GO HOME TOMORROW. STATES HIS BED IS TO BE DELIVERED TO HIS HOME. MAX ASSIST OF 1 TO 2 TO REPOSOTION. NYSTATIN APPLIED TO GROIN AREA. PASSED SOME FLATUS WHEN TURNED. WILL MONITOR.
[2019-12-16 15:30] VITALS: BP 126/69
--- NOTE | 2019-12-16 17:00 | NUR ---
PT. A&O X3. TURNED AND REPOSITIONED IN THE BED. KOROMA PATENT AND DRAINING CLEAR YELLOW. HEEL PROTECTORS APPLIED TO PROTECT FROM PRESSURE. PT. INQUIRED ON THE BED THAT IS TO BE DELIVERED TO HIS HOME. RELAYED FROM CASE MANAGEMENT THAT [facility] WILL BE HERE TOMORROW AND BE ABLE TO UP DATE HIM ON ARRIVAL. GUERO BELTRAN, WAS MADE AWARE TODAY AT PT. REQUEST THAT HE IS ON 6L O2 AT HOME AND STATED IT COULD BE INCREASED TO 2L. PT. RUNNING ON 6L THIS AFTERNOON WITH SATS IN THE 94-95 RANGE. WILL MONITOR.
--- NOTE | 2019-12-16 19:40 | NUR ---
POC DISCUSSED WITH PT. IV ANTIBIOTIC THERAPY IS STILL RUNNING AT THIS TIME PLACED BY DAY SHIFT NURSE. SITE APPEARS HEALTHY. ASSISTED PT REPOSITION ARMS AND ASSISTED WITH PO FLUIDS. HOB ADJUSTED FOR PT AND OXYGEN BAND REPLACED PER PT REQUEST.
[2019-12-16 20:00] VITALS: BP 120/80
--- NOTE | 2019-12-16 20:21 | NUR ---
PT MEDICATED ORDERS PROVIDE. PT ASSISTED WITH PO FLUIDS AND REPOSITIONING. DISCUSSED Q2 TURNS WITH PT, HE STATES HE WILL CALL WHEN HE IS READY TO GO TO SLEEP AND THEN HE WILL BE TURNED. I ENCOURAGED PT TO ALLOW MINIMAL Q2 TURNING AND PILLOW REPOSITIONING. PT ASKED FOR SLEEP AIDE, PHYSICIAN NOTIFIED AND ORDERS RECEIVED. IV ANTIBIOTIC THERAPY ADMINISTERED AT THIS TIME. CALL LIGHT W/IN REACH.
--- NOTE | 2019-12-16 21:45 | NUR ---
PT MEDICATED FOR SLEEP. DENIES ANY OTHER NEEDS AT THIS TIME. CALL LIGHT W/IN REACH AND PT ENCOURAGED TO CALL NEEDS ARISE. PT REPORTS BEING COMFORTABLE AT THIS TIME AND REFUSES TURNING OR REPOSITIONING AT THIS TIME.
[2019-12-17] VITALS: BP 114/73
--- NOTE | 2019-12-17 00:27 | NUR ---
PT TURNED TO RIGHT SIDE. REFUSED LEFT SIDED TURN. PILLOWS BEHIND BACK FOR COMFORT/SUPPORT. CALL LIGHT AND PHONE PLACED WITHIN REACH. PT DENIES ANY OTHER NEEDS OF ASSISTANCE AT THIS TIME.
[2019-12-17 03:50] VITALS: BP 137/57
--- NOTE | 2019-12-17 05:12 | NUR ---
PT MEDICATED ORDERS PROVIDE. PT REQUESTING COFFEE/PROVIDED.
[2019-12-17 07:17] VITALS: BP 136/69
--- NOTE | 2019-12-17 07:17 | NUR ---
PT RESTING IN BED, NO SIGNS OF DISTRESS NOTED, RESP EVEN AND UNLABORED. PT ALERT AND ORIENTED X3, DISCUSSED POC, PT IS ON AN AIR MATTRESS, KOROMA DRAINING TO GRAVITY, PT HAS FOOT DROP, HEEL PROTECTORS IN PLACE. ASSESSMENT COMPLETED, CALL LIGHT IN REACH,CONTINUE TO MONITOR.
[2019-12-17] MEDS ORDERED: FLORASTOR250 M1 PO (10:02)
[2019-12-17] MEDS ORDERED: AUGMENTIN500TAB PO (10:02)
[2019-12-17 11:00] VITALS: BP 119/57
--- NOTE | 2019-12-17 11:41 | NUR ---
PT RESTING IN BED, NO SIGNS OF DISTRESS NOTED, PT WATCHING TV, NYSTATIN POWDER APPLIED, PT VOICES NO NEEDS OR COMPLAINTS AT THIS TIME, CALL LIGHT IN REACH,CONTINUE TO MONITOR.
--- NOTE | 2019-12-17 12:14 | NUR ---
Physical Therapy Note Patient identifed by full osmar and date of Alert, coherent and cooperative PT Management: 1. Bilateral shoulder shrugs x 10 repetition x 2 sets 2. Bilateral rounding of the shoulder x 10 repetitions x 2 sets 3. Bilateral shoulder and elbow flexion x 10 repetitions x 2 sets. 4. AAROME of the LE x 10 repetitions x 2 sets. 5. Quad-setting x 5 seconds hold x 5 repetitions on each LE. Patient was able to perform all exercises with minimal fatigue. No shortness of breath observed. Patient's call button left within patient's reach before the physical therapist left the room. AM-PAC Score 6
--- NOTE | 2019-12-17 13:40 | NUR ---
PT CALLED STATES THAT [facility] IS AT HIS HOME SETTING UP HIS BED NOW, STATES NO AIR MATTRESS UNTIL THURSDAY, PT STATES HE STILL WANTS TO GO HOME, HIS IS MAKING HIM A SPECIAL DINNER TONIGHT. DISCUSSED WITH CASE MANAGMENT, INFORMED , HE STATES IT IS OK FOR PT TO BE DISCHARGED.
--- NOTE | 2019-12-17 14:07 | NUR ---
PT RESTING IN BED, DISCUSSED DISCHARGE INSTRUCTIONS, AWAITING FOR ETA FOR TRANSPORT FROM CASE MANAGEMENT. PRESCRIPTIONS GIVEN TO PT, CALL LIGHT IN REACH,CONTINUE TO MONITOR.
--- NOTE | 2019-12-17 15:07 | NUR ---
[facility] ARRIVED TO TAKE PT HOME
--- NOTE | 2019-12-17 15:25 | NUR ---
Discharge instructions given. Patient verbalizes understanding of same. Discharged in stable condition via Medical Transport to Home with staff. All belongings sent with pt.
--- NOTE | 2019-12-17 18:16 | NUR ---
CALLED [facility] REGARDING TURNING IN THE AIR MATTRESS. SPOKE TO SIS WAS GIVEN CONFIRMATION NUMBER [id number].
== END 2019-12-17 15:24 | DRG 871 ==
LOC: ED 17:13 → ED-I 17:54 → ED 18:29 → ICU 18:30 → MS2 12-15 17:38
PROVIDERS: Emergency Medicine; Nurse Practitioner Family; ADMIT Internal Medicine; ATTEND Internal Medicine
DX: A41.9 Sepsis, unspecified organism (principal); J18.9 Pneumonia, unspecified organism; J96.21 Acute and chronic respiratory failure with hypoxia; T83.511A Infection and inflammatory reaction due to indwelling urethral catheter, initial encounter; N39.0 Urinary tract infection, site not specified; J44.0 Chronic obstructive pulmonary disease with (acute) lower respiratory infection; G82.20 Paraplegia, unspecified; I13.0 Hypertensive heart and chronic kidney disease with heart failure and stage 1 through stage 4 chronic kidney disease, or unspecified chronic kidney disease; N17.9 Acute kidney failure, unspecified; R65.20 Severe sepsis without septic shock; I50.9 Heart failure, unspecified; N18.30 Chronic kidney disease, stage 3 unspecified; N40.1 Benign prostatic hyperplasia with lower urinary tract symptoms; R33.8 Other retention of urine; L89.151 Pressure ulcer of sacral region, stage 1; I49.3 Ventricular premature depolarization; I48.91 Unspecified atrial fibrillation; E78.5 Hyperlipidemia, unspecified; K21.9 Gastro-esophageal reflux disease without esophagitis; I25.10 Atherosclerotic heart disease of native coronary artery without angina pectoris; M21.379 Foot drop, unspecified foot; I25.5 Ischemic cardiomyopathy; I25.2 Old myocardial infarction; Y84.6 Urinary catheterization as the cause of abnormal reaction of the patient, or of later complication, without mention of misadventure at the time of the procedure; B96.4 Proteus (mirabilis) (morganii) as the cause of diseases classified elsewhere; Z87.891 Personal history of nicotine dependence; Z95.810 Presence of automatic (implantable) cardiac defibrillator; Z74.01 Bed confinement status; Z96.0 Presence of urogenital implants; Z95.1 Presence of aortocoronary bypass graft; Z90.2 Acquired absence of lung [part of]; Z86.14 Personal history of Methicillin resistant Staphylococcus aureus infection; Z87.440 Personal history of urinary (tract) infections; Z23 Encounter for immunization; Z20.828 Contact with and (suspected) exposure to other viral communicable diseases
CPT/HCPCS: J0692

== ENCOUNTER 2020-01-03 11:30 | Inpatient (IN) | payer MEDICARE ==
[~2020-01-03] VITALS: Ht 185.4 cm; Wt 92.2 kg
[~2020-01-03 11:30] MED LIST changes: +AUGMENTIN500TAB PO
--- NOTE | 2020-01-03 11:43 | NUR ---
PT COMES IN VIA EMS FOR FEVER. WAS BEING SEEN BY HOME HEALTH AND HAD TEMP 101.5
[2020-01-03 12:21] LABS: HEMOGLOBIN 9.7 g/dl (14.0-18.0); IMMATURE GRANULOCYTES 0.4 % (0.0-5.0); MEAN CELL VOLUME 88.7 fL CALC (80.0-100.0); MEAN CORPUSCULAR HGB 26.1 pG CALC (26.0-32.0); MEAN CORPUSCULAR HGB CONC 29.4 g/dL CAL (32.0-36.0); NEUT# 14.45 thou/uL (1.82-7.42); RED BLOOD COUNT 3.72 mill/uL (4.70-6.10); RED CELL DISTRI WIDTH 15.9 % (11.5-15.5)
[2020-01-03 12:39] LABS: ALBUMIN 3.3 g/dL (3.2-5.0); BILIRUBIN, TOTAL 0.9 mg/dL (0.0-1.4); CREATININE 1.7 mg/dL (0.7-1.3); MAGNESIUM 1.7 mg/dL (1.6-2.3); POTASSIUM 3.6 mmol/l (3.5-5.1); TOTAL PROTEIN 6.8 g/dL (6.3-8.2)
--- NOTE | 2020-01-03 13:00 | NUR ---
PT RESTING COMFORTABLY ON STRETCHER. CALL LIGHT IN REACH. WILL CONTINUE TO MONITOR
--- NOTE | 2020-01-03 13:54 | NUR ---
KOROMA INSERTED BY NIRMALA ARREAGA. UA COLLECTED AFTER CLAMPING KOROMA DONE BY ME CURRENTLY AWAITING RESULTS. PT NOT IN ANY DISTRESS
[2020-01-03 14:02] LABS: URINE BILIRUBIN - DIPSTICK NEGATIVE (NEGATIVE); URINE BLOOD DIPSTICK LARGE (NEGATIVE); URINE COLOR YELLOW; URINE GLUCOSE - DIPSTICK NEGATIVE (NEGATIVE); URINE KETONE NEGATIVE (NEGATIVE); URINE PROTEIN - DIPSTICK TRACE mg/dL (NEG-TRACE); URINE SPECIFIC GRAVITY 1.015; URINE UROBILINOGEN - DIPSTICK 0.2 E.U./dL (0.2)
[2020-01-03 14:04] LABS: URINE BACTERIA MANY hpf; URINE EPITHELIAL CELLS MODERATE EPI/hpf (0-FEW); URINE LEUK ESTERASE SMALL (NEGATIVE); URINE NITRITE - DIPSTICK POSITIVE (Negative)
--- NOTE | 2020-01-03 15:00 | NUR ---
PT RESTING ON STRETCHER AWAITING ADMIT AT THIS TIME.
--- NOTE | 2020-01-03 15:27 | NUR ---
REPORT REC FROM DOMI ARREAGA
--- NOTE | 2020-01-03 15:30 | NUR ---
REPORT CALLED AND GIVEN TO BOBBY RN PATIENT IS TO BE TRANSFERRED TO 269
--- NOTE | 2020-01-03 15:35 | NUR ---
PT TO [facility] ROOM 269 VIA STRETCHER. TOLERATED TRANSFER WELL.
--- NOTE | 2020-01-03 15:42 | NUR ---
RUTHIE JAVIER NOTIFIED OF PTS CRITICAL LAB RESULT OF PROCALCITONIN 1.160 CALLED IN BY TISHA IN LAB
[2020-01-03 16:17] VITALS: BP 116/66
--- NOTE | 2020-01-03 16:17 | NUR ---
PT ARRIVED VIA WC ACCOMPANIED BY MARCO A RAREAGA. O2 VIA NC @4L, PT REPORTS THE USE OF O2 AT HOME WHICH HE TITRATES ACCORDING TO HIS O2 LEVEL. DENIES ANY COUGH OR PAIN AT THIS TIME. MULTIPLE SKIN TEARS NOTED TO COCCYX- AQUACEL DRESSING APPLIED, RT FLANK. BACK REDDENED IN COLOR ALONG WITH BOTH SIDES OF ABD. SKIN TEAR NOTED TO RL ABD FOLD. SEE CHART FOR PHOTOS. ABD DISTENDED IN APPEARANCE BUT SOFT. BM 01/02. PER ED, PT CAME IN WITH KOROMA CATHETER, NEW KOROMA INSERTED BY ED DEPARTMENT NEW KOROMA CATH STRAP APPLIED UPON ARRIVAL. BM INCONTINENCE. HEEL PROTECTORS PLACED BILATERALLY. PT TO BE TURNED Q4HRS. WOUND CARE CONSULT IN PLACE. PHARMACY CONSULT PLACED TO OBTAIN MED REC, UNABLE TO BE OBTAINED BY ED. ASSESSMENT COMPLETED. DISCUSSED POC. CALL LIGHT IN REACH. COFFEE TASTER PLACED. CONTINUE TO MONITOR.
[2020-01-03 19:00] VITALS: BP 111/56
--- NOTE | 2020-01-03 20:01 | NUR ---
ASSIGNMENT ACCEPTED FROM NURSE. ASSESSMENT AND VITALS COMPLETED AT THIS TIME. RESPIRATIONS ARE DIMINISHED ON ROOM 4 LITERS OD O2. WHEEZING IS PRESENT ON ASCULTATION. HEART RHYTHM IS IRREGULAR WITH TELE IN PLACE. RATE IS AFIB 65. BOWEL SOUNDS ARE ACTIVE IN ALL QUADRANTS, LAST REPORTED BM 01/03/2020. PT HAS A KOROMA CATHETER IN PLACE. TUBE IS UNKINKED AND URINE IS FLOWING TO GRAVITY. #20G IN RFA RUNNING WITH IVF PER ORDER, SITE APPEARS HEALTHY AND PATENT. COCCYX AND LEFT BUTTOCLKS REDDENED, Q2 TURNING ENFORCED . PT DENIES OF ANY PAIN OR DISCOMFORTS AT THIS TIME. ALL SAFETY PRECAUTIONS ARE IN PLACE WITH CALL LIGHT IN REACH. WILL CONTINUE TO MONITOR.
--- NOTE | 2020-01-03 23:14 | NUR ---
ASSIGNMENT ACCEPTED FROM NURSE. ASSESSMENT AND VITALS COMPLETED AT THIS TIME. RESPIRATIONS ARE DIMINISHED ON ROOM 4 LITERS OD O2. WHEEZING IS PRESENT ON ASCULTATION. HEART RHYTHM IS IRREGULAR WITH TELE IN PLACE. RATE IS AFIB 65. BOWEL SOUNDS ARE ACTIVE IN ALL QUADRANTS, LAST REPORTED BM 01/03/2020. PT HAS A KOROMA CATHETER IN PLACE. TUBE IS UNKINKED AND URINE IS FLOWING TO GRAVITY. RADIAL AND PEDAL PULSES ARE STRONG WITH NORMAL CAPILLARY REFILL. #22G IN LFA RUNNING WITH IVF PER ORDER, SITE APPEARS HEALTHY AND PATENT. COCCYX APPEARS SIGHTLY REDDENED, Q2 TURNING ENFORCED . PT DENIES OF ANY PAIN OR DISCOMFORTS AT THIS TIME. ALL SAFETY PRECAUTIONS ARE IN PLACE WITH CALL LIGHT IN REACH. WILL CONTINUE TO MONITOR.
[2020-01-04] VITALS: BP 118/65
--- NOTE | 2020-01-04 00:01 | NUR ---
PT LAYING IN BED WITH EYES CLOSED, APPEARS TO BE SLEEPING, APPEARS COMFORTABLE AND IN NO DISTRESS. RESPIRATIONS REGULAR AND UNLABORED. ITEMS REMAIN WITHIN REACH, CALL NAVARRO REMAINS WITHIN REACH. BED REMAINS LOCKED AND IN LOW POSITION WITH BEDRAILS UP X2. WILL CONTINUE TO MONITOR.
[2020-01-04 04:00] VITALS: BP 118/67
--- NOTE | 2020-01-04 04:05 | NUR ---
PT RESTING IN BED, NO SIGNS OF DISTRESS NOTED, RESP EVEN AND UNLABORED. PT VOICES NO NEEDS OR COMPLAINTS AT THIS TIME. CALL LIGHT IN REACH,CONTINUE TO MONITOR.
[2020-01-04 05:30] LABS: HEMATOCRIT 28.7 % (39.0-50.0); HEMOGLOBIN 8.5 g/dl (14.0-18.0); IMMATURE GRANULOCYTES 0.3 % (0.0-5.0); MEAN CELL VOLUME 89.1 fL CALC (80.0-100.0); MEAN CORPUSCULAR HGB 26.4 pG CALC (26.0-32.0); MEAN CORPUSCULAR HGB CONC 29.6 g/dL CAL (32.0-36.0); NEUT# 7.87 thou/uL (1.82-7.42); RED BLOOD COUNT 3.22 mill/uL (4.70-6.10)
[2020-01-04 05:55] LABS: ALBUMIN 2.6 g/dL (3.2-5.0); BILIRUBIN, TOTAL 0.9 mg/dL (0.0-1.4); CREATININE 1.9 mg/dL (0.7-1.3); MAGNESIUM 1.8 mg/dL (1.6-2.3); POTASSIUM 3.2 mmol/l (3.5-5.1); TOTAL PROTEIN 5.7 g/dL (6.3-8.2)
--- NOTE | 2020-01-04 06:47 | NUR ---
Patient is screened for PT intervention and would benefit from consult if medical agrees
[2020-01-04 07:48] VITALS: BP 120/65
--- NOTE | 2020-01-04 07:48 | NUR ---
PATIENT IN BED CALL LIGHT NEAR AND SIDERAILS UP X 2 PATIENT DENIES ANY NEEDS AND STATED WHEN ASKED THAT HIS PAIN LEVEL WAS A 4 OUT OF A PAIN SCALE OF 0-10. PATIENT STATED HIS PAIN WAS IN HIS BUTTOCKS AREA AND WAS REPOSITION ON RIGHT SIDE AND STATE THAT "FEELS BETTER". KOROMA CATH REMAINS PATENT AND DRAINING YELLOW URINE AT THIS TIME. WILL CONTINUE TO MONITOR.
[2020-01-04] MEDS ORDERED: ROPINIROLE1 MG PO (09:03)
[2020-01-04] MEDS ORDERED: LASIX 20 MG TAB20 MG PO (09:04)
[2020-01-04] MEDS ORDERED: ONDANSETRON4 MG PO (09:05)
[2020-01-04] MEDS ORDERED: ATIVAN0.5 MG PO (09:06)
[2020-01-04] MEDS ORDERED: RESTORIL15 M1 PO (09:07)
[2020-01-04] MEDS ORDERED: ASPIRIN 8181 MG PO (09:08)
[2020-01-04] MEDS ORDERED: ALLERGY RELF PO (09:11)
[2020-01-04 10:30] VITALS: BP 117/47
--- NOTE | 2020-01-04 12:20 | NUR ---
WOUND CARE AT BEDSIDE
--- NOTE | 2020-01-04 12:44 | NUR ---
Pt consented to receive pneumococcal vaccination, however pt has already received vaccination since 63. No additional dose indicated at this time.
--- NOTE | 2020-01-04 12:48 | NUR ---
S: MARIAH FINLEY is a 74 M who presents with PNEUMONIA. He has a history of PNEUMONIA. All medications in patient's chart were reviewed. O: VS: BP 117/47, P 68, RR 18,T 97.7 W 92 kg, HT 73IN, Scr= 1.9,CrCl= 36ml/min A: Blood culture <is pending/show> which is sensitive to <>. Urine culture <is pending/show> which is sensitive to <>. P: Patient is on CEFEPIME 1 GRAM Q12H. Vancomycin ordered for pharmacy to dose. Start Vancomycin 1250MG q24H IV. Vancomycin trough is drawn before the 4th dose on 01/06/20 @1200. Vancomycin goal trough is between 15-20 mcg/ml>. Pharmacy will follow and or advise on antibiotics use as needed. TREVA CABRERA PHARMD
--- NOTE | 2020-01-04 13:16 | NUR ---
PATIENT IN BED AT THIS TIME. STATES PAIN LEVEL IS A 3 AT THIS TIME. CALL LIGHT NEAR SIDERAILS UP. WOUND CARE NURSE AND PHYSICIAN ENTERED ROOM AT THIS TIME. KOROMA REMAINS PATENT AND DRAINING CLEAR YELLOW URINE.
--- NOTE | 2020-01-04 13:48 | NUR ---
CALLED [employer] AT SPOKE TO KAYLEE REGARDING AN AIR MATTRESS. WAS GIVEN CONFIRMATION NUMBER [id number].
[2020-01-04 15:00] VITALS: BP 131/65
--- NOTE | 2020-01-04 15:42 | NUR ---
PATIENT IN BED RESTING WITH EYES OPEN AT THIS TIME. PATIENT DENIES ANY NEEDS AND ALL SAFETY MEASURES ARE IN PLACE. CALL LIG IS WITHIN REACH. KOROMA REMAINS PATENT AND DRAINING YELLOW URINE AT THIS TIME.
--- NOTE | 2020-01-04 17:34 | NUR ---
PATIENT C/O NAUSEA AT THIS TIME 4MG OF ZOFRAN GIVEN IV. PATEINT RE-POSITIONED IN BED SIDERAILS UP CALL LIGHT WITHIN REACH.
[2020-01-04 19:00] VITALS: BP 122/76
--- NOTE | 2020-01-04 19:19 | NUR ---
PT AWAKE, DENIES NEEDS, POC DISCUSSED WITH PT, AGREED. NO S/O DISTRESS, BUT ENCOURAGED PT TO CALL ANY NEEDS ARISE. CALL LIGHT IN HAND.
--- NOTE | 2020-01-04 21:25 | NUR ---
PT MEDICATED AND ASSESSMENT COMPLETED AT THIS TIME. PT REFUSED Q2 TURN AT THIS TIME. STATES HE WANTS TO BE REPOSITIONED AT MIDNIGHT AND AROUND 0300. WE WILL CONTINUE TO OFFER TO PROVIDE REPOSITIONING TO PT. PT DENIES ANY NEEDS AT THIS TIME. CRACKERS PROVIDED PER REQUEST AND ASSISTED HIM WITH WRAPPING. FEET ELEVATED BILAT.
[2020-01-05] VITALS (7 sets, daily range): BP systolic 113–138; BP diastolic 64–74
--- NOTE | 2020-01-05 02:05 | NUR ---
PT APPEARS TO BE SLEEPING, NO S/O DISTRESS NOTED. CALL LIGHT AT SIDE.
--- NOTE | 2020-01-05 04:32 | NUR ---
PT MEDICATED FOR CRAMPING PAIN IN R.FOOT. ASSISTED PT REPOSITIONING FOR COMFORT. PT AWAKE AND WATCHING NEWS. DENIES ANY OTHER NEEDS AT THIS TIME. CALL LIGHT IS IN HAND AND PT ENCOURAGED TO CALL NEEDS ARISE.
[2020-01-05 06:03] LABS: HEMATOCRIT 28.8 % (39.0-50.0); HEMOGLOBIN 8.4 g/dl (14.0-18.0); MEAN CELL VOLUME 88.9 fL CALC (80.0-100.0); MEAN CORPUSCULAR HGB 25.9 pG CALC (26.0-32.0); MEAN CORPUSCULAR HGB CONC 29.2 g/dL CAL (32.0-36.0); RED BLOOD COUNT 3.24 mill/uL (4.70-6.10)
[2020-01-05 06:16] LABS: CREATININE 1.9 mg/dL (0.7-1.3); POTASSIUM 3.6 mmol/l (3.5-5.1)
--- NOTE | 2020-01-05 07:43 | NUR ---
PATEINT IN BED SIDERAILS UP X2 CALL LIGHT NEAR. O2 ON AT 4 LITERS KOROMA PATENT AND DRAINING. PATIENT STATES PAING IS A 3 AT THIS TIME DENIES ALL OTHER NEEDS.
--- NOTE | 2020-01-05 08:15 | NUR ---
AT BEDSIDE DISCUSSING POC.
--- NOTE | 2020-01-05 12:05 | NUR ---
PATIENT IN BED ALERT AND ORIENTED. CALL LIGHT NEAR SIDERAILS UP X2 KOROMA PATENT AND DRAINING, O2 ON AT THIS TIME AT 4 LITERS. STATES PAIN IS A 3 AT THIS TIME OUT OF A SCALE OF 0-10. TYLENOL OFFERED AND PATIENT REFUSES.
--- NOTE | 2020-01-05 13:50 | NUR ---
PATIENT MOVED TO AIR MATTRESS AT THIS TIME. PATIENT ROLLED TO RIGHT SIDE AND DRESSING CHANGED PREFORMED ON COCCYX AREA. AREA CLEANSED WITH NORMAL SALINE AND PAT DRY WITH 4X4 AND AQUACELL DRESSING APPLIED. PATIENT TOLERATED PROECEEDURE WITHOUT ANY COMPLAINTS.
--- NOTE | 2020-01-05 16:01 | NUR ---
PATIENT IN BED AT THIS TIME. PATIENT STATES PAIN LEVEL IS A 3 OUT OF A PAIN SCALE OF 0-10. TYLENOL OFFERED PATIENT REFUSING AT THIS TIME. 02 ON AT 4 LITERS. KOROMA PATENT AND DRAINING YELLOW URINE. ALL SAFETY MEASURES ARE IN PLACE AT THIS TIME CALL LIGHT NEAR.
--- NOTE | 2020-01-05 21:57 | NUR ---
PT MEDICATED W/PM MEDICATIONS ORDERS PROVIDE. PT C/O FEELING DIZZY. DENIED NAUSEA, STATES THAT THE BED FEELS LIKE IT IS MOVING. HE ASKED IF WE HAD ANY MEDICATION WE COULD GIVE FOR THAT, I TOLD HIM THAT I WOULD PUT IN A CALL TO THE PHYSICIAN CONTESTANT COORDINATOR, VERBALIZED UNDERSTANDING. ASSISTED PT REPOSITIONING FOR COMFORT AND ASSESSMENT COMPLETED AT THIS TIME. PT DENIES SNACK OR ANY OTHER NEEDS AT THIS TIME. CALL LIGHT LEFT IN HAND.
--- NOTE | 2020-01-05 22:20 | NUR ---
V/S ASSESSED AT THIS TIME.
--- NOTE | 2020-01-06 00:38 | NUR ---
PT AWAKE, REPORTS FEELING MUCH BETTER, NOT HAVING THE DIZZINESS AND IS RETURNING TO SLEEP AT THIS TIME. ENCOURAGED HIM TO CALL ANY NEEDS ARISE, VERBALIZED UNDERSTANDING.
[2020-01-06 04:09] VITALS: BP 123/71
--- NOTE | 2020-01-06 05:54 | NUR ---
PT MEDICATED ORDERS PROVIDE. NO S/O DISTRESS NOTED. PT DENIES ANY NEEDS AT THIS TIME. CALL LIGHT AT SIDE.
--- NOTE | 2020-01-06 07:12 | NUR ---
REPORT RECEIVED FROM WHITLEY DICKERSON. PT RESTING IN BED, NO S/S OF DISTRESS AT THIS TIME. SAFETY PRECAUTIONS IN PLACE. WILL CONTINUE TO MONITOR.
[2020-01-06 08:57] VITALS: BP 146/88
--- NOTE | 2020-01-06 08:57 | NUR ---
PT RESTING IN BED, ALERT AND ORIENTED. RESPIRATIONS ARE EVEN AND UNLABORED ON O2 @ 5L VIA NC. LUNGS SOUND CLEAR/DIMINISHED. PEDAL PULSES ARE WEAK. PT DENIES ANY PAIN OR DISCOMFORT AT THIS TIME. SAFETY PRECAUTIONS IN PLACE. WILL CONTINUE TO MONITOR.
--- NOTE | 2020-01-06 12:00 | NUR ---
PT RESTING IN BED, AT BEDSIDE. NO S/S OF DISTRESS AT THIS TIME. SAFETY PRECAUTIONS IN PLACE. WILL CONTINUE TO MONITOR.
[2020-01-06 14:13] VITALS: BP 130/73
--- NOTE | 2020-01-06 16:39 | NUR ---
PT RESTING IN BED, NO S.S OF DISTRESS AT THIS TIME. SAFETY PRECAUTIONS IN PLACE. WILL CONTINUE TO MONITOR.
[2020-01-06 19:30] VITALS: BP 117/73
--- NOTE | 2020-01-06 23:01 | NUR ---
PHYSICAL ASSESMENT COMPLETE. PT CURRENTLY DENIES PAIN OR DISCOMFORT. SCHEDULED MEDICATIONS AND PRN MEDICATION ADMINISTERED, SEE E-MAR. PT DENIES ANY NEEDS AT THIS TIME. PLAN OF CARE REVIEWED, PT DENIES QUESTIONS, VERBALIZES UNDERSTANDING. ITEMS WITHIN REACH, BED LOCKED IN LOW POSITION W/ BEDRAILS UP X2. CALL NAVARRO WITHIN REACH, AGREES TO CALL PRN.
--- NOTE | 2020-01-07 04:03 | NUR ---
PT RESTING IN BED, NO SIGNS OF DISTRESS NOTED, RESP EVEN AND UNLABORED. PT VOICES NO NEEDS OR COMPLAINTS AT THIS TIME. CALL LIGHT IN REACH, WILL CONTINUE TO MONITOR.
[2020-01-07 04:20] VITALS: BP 128/65
[2020-01-07 04:51] LABS: HEMATOCRIT 29.1 % (39.0-50.0); HEMOGLOBIN 8.7 g/dl (14.0-18.0); MEAN CELL VOLUME 87.7 fL CALC (80.0-100.0); MEAN CORPUSCULAR HGB 26.2 pG CALC (26.0-32.0); MEAN CORPUSCULAR HGB CONC 29.9 g/dL CAL (32.0-36.0); RED BLOOD COUNT 3.32 mill/uL (4.70-6.10); RED CELL DISTRI WIDTH 15.9 % (11.5-15.5)
[2020-01-07 05:07] LABS: CREATININE 1.7 mg/dL (0.7-1.3); POTASSIUM 3.5 mmol/l (3.5-5.1)
--- NOTE | 2020-01-07 08:05 | NUR ---
ASSESSMENT DONE. PATIENT IS A&O X3. PT DENIES PAIN AT THIS TIME. LUNGS SOUND/DIMIMISHED. O2 AT 5L VIA NC. KOROMA IS PATENT WITH YELLOW URINE. IVF INFSUING WELL. PATIENT ON AIR MATTRESS. PT DENIES ANY NEEDS AT THIS TIME. CALL LIGHT IN REACH.
[2020-01-07 08:13] VITALS: BP 133/74
--- NOTE | 2020-01-07 12:25 | NUR ---
PATIENT STATED HE HAS PAIN IN BUTTOCKS AND BODY. MEDICATED PT WITH TYLENOL. PT REFUSING TO EAT HIS LUNCH STATED IT HARD AND HURT HIS MOUTH. TOLD PT I CAN GET HIM SOMETHING ELSE. PT STATED NO. PT DENIES ANY OTHER NEEDS AT THIS TIME. CALL LIGHT IN REACH.
--- NOTE | 2020-01-07 15:50 | NUR ---
PATIENT GETTING CONFUSED ON HOW TO USE PHONE AND CALL LIGHT . REORIENT PT. FAMILY MEMBER IN ROOM. FAMILY MEMBER PROVIDED PT WITH FOOD AND MILKSHAKE. PT DENIES ANY OTHER NEEDS AT THIS TIME. CALL LIGHT IN REACH.
[2020-01-07 16:09] VITALS: BP 97/59
[2020-01-07 22:13] VITALS: BP 135/85
--- NOTE | 2020-01-07 22:57 | NUR ---
PT PRESENTS WITH WOUND ON HIS RIGHT SHOULDER BLADE, IRRIGATED WOUND WITH NORMAL SALINE AND REPLACED DRESSING WITH NON-ADHERENT PAD AND TEGADERM COVER. INITIALED AND DATED. DRESSING CDI AT THSI TIME. PLACED AQUA FOAM PAD ON PATIENTS COCCYX TO PREVENT FURTHER REDDENING. DATED AND INITIALLED.
[2020-01-08 03:50] VITALS: BP 143/80
[2020-01-08 07:32] VITALS: BP 143/80
--- NOTE | 2020-01-08 09:45 | NUR ---
RESIDENT OBSERVED IN BED DISORIENTED, SOME EXPRESSIVE APHASIA NOTED, STROKE ALERT CALLED, RESIDENT WENT DOWN FOR CT OF BRAIN, NEURO CONSULTED, RECEIVED NEW ORDERS AND IMPLEMENTED, MD MADE AWARE AND FAMILY, VITALS 144/64, 89, 20, BS 96, O2 SAT % 98
[2020-01-08 11:28] LABS: ANION GAP 11 (6-22 (CALC)); BUN 21 mg/dL (8-23); BUN/CREATININE RATIO 13 (12-20 (CALC)); CARBON DIOXIDE 27 mmol/l (22-30); CHLORIDE 104 mmol/l (95-108); CREATININE 1.6 mg/dL (0.7-1.3); GFR 42 ML/MIN (>=60 (CALC)); GFR FOR AFR.AMER. 51 ML/MIN (>=60 (CALC)); POTASSIUM 3.4 mmol/l (3.5-5.1); SODIUM 139 mmol/l (137-146)
[2020-01-08 16:00] VITALS: BP 156/82
[2020-01-08 20:00] VITALS: BP 156/98
--- NOTE | 2020-01-09 00:04 | NUR ---
PT LAYING IN BED WITH EYES CLOSED, APPEARS TO BE SLEEPING, APPEARS COMFORTABLE AND IN NO DISTRESS. RESPIRATIONS REGULAR AND UNLABORED. PT REMAINS ON 5 LITERS OF 02. ITEMS REMAIN WITHIN REACH, CALL NAVARRO REMAINS WITHIN REACH. BED REMAINS LOCKED AND IN LOW POSITION WITH BEDRAILS UP X2. WILL CONTINUE TO MONITOR.
[2020-01-09 04:00] VITALS: BP 139/82
[2020-01-09 06:16] LABS: CHOLESTEROL HDL RATIO 5.5 (<4.4 (CALC))
[2020-01-09 07:51] VITALS: BP 141/80
--- NOTE | 2020-01-09 07:51 | NUR ---
PATIENT IN BED AT THIS TIME CALL LIGHT NEAR. SIDERAILS UP X2 PATIENT KOROMA CATH INTACT AND DRAINING AT THIS TIME. PATIENT A&0 X 3. O2 ON AT 4 LITERS. PATIENT ON AIR MATTRESS ON. PATIENT OFFERED TYLENOL FOR GERNERALIZED PAIN OF 5 ON A SCALE OF 0-10 BUT REFUSED.
--- NOTE | 2020-01-09 08:20 | NUR ---
AT BEDSIDE DISCUSING POC.
--- NOTE | 2020-01-09 08:40 | NUR ---
PT TRANSPORTED TO [facility] IN STABLE CONDITION VIA STRETCHER ACCOMPANIED BY KENNETH MURRELL AND KENNETH MCNALLY.
--- NOTE | 2020-01-09 09:15 | NUR ---
PT RETURNED TO MED/SURG ROOM 269 IN STABLE CONDITION VIA STRETCHER ACCOMPANIED BY RADIOLOGY STAFF MEMBER.PT RE-POSITIONED INTO HOSPITAL BED WITH X3 ASSIST.
--- NOTE | 2020-01-09 12:25 | NUR ---
PATIENT IN BED AT THIS TIME, GA GUO AND DRAINING STATES PAIN IS A 4 WHEN ASKED IF HE WANTED TYLENOL AT THIS TIME PATIENT STATED "NO". SAFETY MEASURES ARE IN PLACE CALL LIGHT NEAR.
[2020-01-09 15:05] VITALS: BP 123/68
--- NOTE | 2020-01-09 15:40 | NUR ---
GERALD Hunt/Henry AT THIS TIME. 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
--- NOTE | 2020-01-09 16:10 | NUR ---
PATIENT IN BED AT THIS TIME REPOSITIONED, O2 ON AT 4 L, KOROMA PATENT AND DRAINING. SIDERAILS UP X 2 CALL LIGHT WITHIN REACH.
--- NOTE | 2020-01-09 17:14 | NUR ---
Discharge instructions given. Patient verbalizes understanding of same. Discharged in stable condition via Wheelchair to Home with *Other. All belongings sent with pt. PT TRANSPORTED TO [facility] IN STABLE CONDITION VIA [facility] FOR D/C HOME.ALL BELONGINGS LEFT WITH PT AT THIS TIME.[facility] TO TRANSPORT PT HOME.
== END 2020-01-09 17:14 | disposition home health service (06) | DRG 871 ==
LOC: ED 11:30 → ED-I 12:35 → ED 12:35 → ED-I 14:34 → ED 14:46 → MS2 14:47
PROVIDERS: Family Medicine; Nurse Practitioner; ADMIT Internal Medicine; ATTEND Internal Medicine
DX: A41.9 Sepsis, unspecified organism (principal); J15.1 Pneumonia due to Pseudomonas; T83.518A Infection and inflammatory reaction due to other urinary catheter, initial encounter; N39.0 Urinary tract infection, site not specified; N17.9 Acute kidney failure, unspecified; I50.42 Chronic combined systolic (congestive) and diastolic (congestive) heart failure; G45.9 Transient cerebral ischemic attack, unspecified; G93.49 Other encephalopathy; G82.20 Paraplegia, unspecified; L03.113 Cellulitis of right upper limb; I13.0 Hypertensive heart and chronic kidney disease with heart failure and stage 1 through stage 4 chronic kidney disease, or unspecified chronic kidney disease; J96.11 Chronic respiratory failure with hypoxia; N18.30 Chronic kidney disease, stage 3 unspecified; R47.01 Aphasia; Z16.23 Resistance to quinolones and fluoroquinolones; I48.91 Unspecified atrial fibrillation; I25.5 Ischemic cardiomyopathy; I25.10 Atherosclerotic heart disease of native coronary artery without angina pectoris; J44.9 Chronic obstructive pulmonary disease, unspecified; L89.119 Pressure ulcer of right upper back, unspecified stage; L89.159 Pressure ulcer of sacral region, unspecified stage; E78.5 Hyperlipidemia, unspecified; R53.1 Weakness; R29.810 Facial weakness; K21.9 Gastro-esophageal reflux disease without esophagitis; M48.02 Spinal stenosis, cervical region; M48.061 Spinal stenosis, lumbar region without neurogenic claudication; M19.90 Unspecified osteoarthritis, unspecified site; N40.0 Benign prostatic hyperplasia without lower urinary tract symptoms; Z20.828 Contact with and (suspected) exposure to other viral communicable diseases; Z99.81 Dependence on supplemental oxygen; Z79.82 Long term (current) use of aspirin; Z79.899 Other long term (current) drug therapy; Z95.810 Presence of automatic (implantable) cardiac defibrillator; Z95.1 Presence of aortocoronary bypass graft; Z95.5 Presence of coronary angioplasty implant and graft; Z87.891 Personal history of nicotine dependence
CPT/HCPCS: J0692; J3370

== ENCOUNTER 2020-03-03 12:09 | Inpatient (IN) | payer MEDICARE ==
[~2020-03-03] VITALS: Ht 185.4 cm; Wt 99.1 kg
[~2020-03-03 12:09] MED LIST changes: +ALLERGY RELF PO; +ASPIRIN 8181 MG PO; +ATIVAN0.5 MG PO; +LASIX 20 MG TAB20 MG PO; +ONDANSETRON4 MG PO; +RESTORIL15 M1 PO; +ROPINIROLE1 MG PO
--- NOTE | 2020-03-03 12:22 | NUR ---
PT TO ROOM VIA EMS STRETCHER FOR BEDSIDE TRIAGE
[2020-03-03 12:59] LABS: HEMATOCRIT 30.6 % (39.0-50.0); HEMOGLOBIN 9.2 g/dl (14.0-18.0); IMMATURE GRANULOCYTES 0.6 % (0.0-5.0); MEAN CELL VOLUME 89.2 fL CALC (80.0-100.0); MEAN CORPUSCULAR HGB 26.8 pG CALC (26.0-32.0); MEAN CORPUSCULAR HGB CONC 30.1 g/dL CAL (32.0-36.0); NEUT# 20.82 thou/uL (1.82-7.42); RED BLOOD COUNT 3.43 mill/uL (4.70-6.10); RED CELL DISTRI WIDTH 17.8 % (11.5-15.5)
[2020-03-03 13:00] LABS: URINE BILIRUBIN - DIPSTICK NEGATIVE (NEGATIVE); URINE BLOOD DIPSTICK SMALL (NEGATIVE); URINE COLOR YELLOW; URINE GLUCOSE - DIPSTICK NEGATIVE (NEGATIVE); URINE KETONE NEGATIVE (NEGATIVE); URINE PROTEIN - DIPSTICK 30 mg/dL (NEG-TRACE); URINE UROBILINOGEN - DIPSTICK 0.2 E.U./dL (0.2)
[2020-03-03 13:01] LABS: URINE LEUK ESTERASE MODERATE (NEGATIVE); URINE NITRITE - DIPSTICK POSITIVE (Negative)
[2020-03-03 13:02] LABS: URINE BACTERIA MANY hpf; URINE EPITHELIAL CELLS MODERATE EPI/hpf (0-FEW)
--- NOTE | 2020-03-03 13:12 | NUR ---
LABS DOWN PT HAS NO COMPLAINTS
[2020-03-03 13:14] LABS: CREATININE 1.5 mg/dL (0.7-1.3); MAGNESIUM 1.8 mg/dL (1.6-2.3); POTASSIUM 3.3 mmol/l (3.5-5.1)
[2020-03-03 13:15] LABS: ACT PARTIAL THROMBO TIME 27.2 SECONDS (20.0-32.5); INTERNATIONAL NORMALIZED RATIO 1.1 RATIO (0.7-1.3); PROTHROMBIN TIME 11.1 SECONDS (9.0-12.5)
[2020-03-03 13:23] LABS: ALBUMIN 3.3 g/dL (3.2-5.0); TOTAL PROTEIN 7.5 g/dL (6.3-8.2)
--- NOTE | 2020-03-03 14:00 | NUR ---
PT WITHOUT ACUTE DISTRESS
--- NOTE | 2020-03-03 15:35 | NUR ---
ATTEMPTED TO GIVE REPORT AT THIS TIME WILL TRY AGAIN NURSE BUSY
--- NOTE | 2020-03-03 15:56 | NUR ---
PATIENT CAME FROM ER VIA STRETCHER. ETHYLBENZENE CONVERTER HELPER IN ROOM TO OBTAIN VS.
--- NOTE | 2020-03-03 16:00 | NUR ---
Transfer Information Transferred To: [place] Report Given to: TOSHA Transported by: [facility] Air Other Transported with: X Nurse Transporter X Patent IV X O2 X Furnace Helper PT STABLE DURING AND ONCE PLACED IN BED WITHOUT DISTRESS
--- NOTE | 2020-03-03 17:00 | NUR ---
ASSESSMENT DONE. PATIENT IS A&O X3. PATIENT DENIES PAIN AT THIS TIME. TELE IN PLACE AND TELE READING SR PVCS. 20 LFA THAT APPEARS HEALTHY. RESPS EVEN AND UNLABORED 02 AT 2L VIA PA. KOROMA PATENT WITH YELLOW URINE. BACK HAS REDNESS/SKIN TEAR AND BUTTOCK HAS REDNESS. PICTURES TAKEN. HEEL PROTECTORS APPLIED. SAFETY PRECAUTIONS REINFORCED AND CALL LIGHT IN REACH.
[2020-03-03 17:26] VITALS: BP 124/66
--- NOTE | 2020-03-03 19:25 | NUR ---
1925-Pt report given from Sri. Pt assessment complete. Pt denies pain. No s/s of distress. Pt is pleasant and proactive in helping with his care. Pt right side of body is stronger and he does prefer belongings at the right side of the bed. Bed low and locked. Call light and phone within reach. Will continue to monitor.
[2020-03-03 20:00] VITALS: BP 127/63
--- NOTE | 2020-03-03 22:46 | NUR ---
2129-Pt air mattress bed arrived from [facility]. Gagandeep Smith and Marine assisted me placing pt in bed, safety practices in place. No s/s of distress, pt tolerated repostioning well. Bed low and locked. Call light and phone within reach. Pt stable. Will continue to monitor.
--- NOTE | 2020-03-03 23:45 | NUR ---
2345-Pt lying in bed with eyes closed. Gagandeep and I repositioned him closer to HOB. Bed low and locked. Call light and phone within reach. Will continue to make frequent safety rounds.
[2020-03-03 23:55] VITALS: BP 125/76
[2020-03-04 04:00] VITALS: BP 124/64
--- NOTE | 2020-03-04 06:02 | NUR ---
0602-Pt laying in bed, eyes closed resting. No s/s of distress. Pt stable. Bed low and locked. Call light and phone within reach. Will continue to perform safety rounds.
[2020-03-04 06:13] LABS: HEMATOCRIT 26.9 % (39.0-50.0); HEMOGLOBIN 7.9 g/dl (14.0-18.0); MEAN CELL VOLUME 90.3 fL CALC (80.0-100.0); MEAN CORPUSCULAR HGB 26.5 pG CALC (26.0-32.0); MEAN CORPUSCULAR HGB CONC 29.4 g/dL CAL (32.0-36.0); RED BLOOD COUNT 2.98 mill/uL (4.70-6.10); RED CELL DISTRI WIDTH 17.9 % (11.5-15.5)
[2020-03-04 06:39] LABS: CREATININE 1.6 mg/dL (0.7-1.3); POTASSIUM 2.7 mmol/l (3.5-5.1)
[2020-03-04 07:30] VITALS: BP 120/62
--- NOTE | 2020-03-04 07:30 | NUR ---
REPORT RECEIVED FROM WHITLEY GROSS. PT RESTING ON AIRMATTRESS ON LEFT SIDE AND POSITIONED WITH PILLOWS DUE TO IMMOBILITY. ALERT AND ORIENTED X 4. C/O 4/10 PAIN TO BUTTOCK AND RLE THAT IS RELIEVED WITH REPOSITIONING. RESPIRATIONS EVEN AND UNLABORED ON OXYGEN 2L VIA NC. LUNGS ARE CLEAR. REDNESS AND EXCORIATION WITH OPEN AREAS TO BACK AND BUTT. DURING LINEN CHANGE AND KOROMA CARE PT HAD SMALL INCONTINENT CLEAR, JELLY LIKE STOOL. IV SITE APPEARS HEALTHY AND FLUSHES. POC REVIEWED. PT ENCOURAGED TO VERBALIZE CONCERNS; STATES UNDERSTANDING. SAFETY MEASURES IN PLACE. CALL LIGHT WITHIN REACH.
--- NOTE | 2020-03-04 09:06 | NUR ---
PT C/O FEELING DIZZY; ZOFRAN ODT GIVEN WITH AM MEDS.
--- NOTE | 2020-03-04 10:15 | NUR ---
IV TO LFA LEAKING AND PAINFUL WITH FLUSH. SITE DC'D AND NEW SITE PLACED TO RIGHT WRIST; FLUSHES WELL WITHOUT DISCOMFORT. MORPHINE ADMINSTERED NOW FOR RLE PAIN 10/02. IV FLUIDS INIATED TO ATTEMPT POTASSIUM AGAIN WITH MORE DILUTION. PT TOLERATED IV START WELL.
--- NOTE | 2020-03-04 10:49 | NUR ---
TRANSPORTED TO CT VIA STRETCHER/OXYGEN WITH 2 MEDSUR STAFF. RETURNED TO ROOM AT THIS TIME. TRANSFERRED FROM STRETHCER TO BED WITH 3-4 PERSON ASSIST.
--- NOTE | 2020-03-04 10:59 | NUR ---
IV POTASSIUM NOW INFUSING WITH IV MAINTENANCE FLUIDS; PT TOLERATING WELL. WILL CONTINUE TO MONITOR.
[2020-03-04 11:15] VITALS: BP 127/74
[2020-03-04 15:00] VITALS: BP 128/63
[2020-03-04 20:00] VITALS: BP 110/66
--- NOTE | 2020-03-04 20:00 | NUR ---
RECEIVED REPORT FROM NURSE ESTEVEZ PATIENT RESTING IN BED ON AIRMATRESS,HOOKED TO O2 @ 2LPM VIA NC, BREATHING UNLABORED, WITH INDWELLING KOROMA CATHTER DRAINING YELLOW COLORED URINE, WITH TELE READING SR WITH PVC 85, PATIENT REMAINS ON CONTACT PLUS PRECAUTION FOR CDIFF, ASSESSMENT COMPLETED, CALL LIGHT AT REACH.
--- NOTE | 2020-03-04 21:50 | NUR ---
PATIENT C/O NASAL CONGESTION UPDATED DR WU WITH ORDERS MADE SENT TO [facility].
[2020-03-05] VITALS (7 sets, daily range): BP systolic 111–144; BP diastolic 69–81
--- NOTE | 2020-03-05 | NUR ---
IV AND PO ANTIBIOTIC GENE AT THIS TIME, PATIENT REPOSITONED, CALL LIGHT AT REACH.
--- NOTE | 2020-03-05 02:57 | NUR ---
PATIENT REQUESTED IV TO BE TURNED OFF STATEDRT ARM STARTING TO SWELL. RT ARM ELEVATED WITH ONE PILOW, IV SITE APPEARS HEALTHY.
--- NOTE | 2020-03-05 03:13 | NUR ---
PATIENT TURNED AND REPOSITIONED AT THIS TIME, REMAINS ON CONTACT PLUS PRECAUTION, O2 @ 2LPM VIA NC, CALL LIGHT AT REACH.
[2020-03-05 05:43] LABS: HEMATOCRIT 26.5 % (39.0-50.0); HEMOGLOBIN 7.7 g/dl (14.0-18.0); IMMATURE GRANULOCYTES 0.3 % (0.0-5.0); MEAN CELL VOLUME 90.1 fL CALC (80.0-100.0); MEAN CORPUSCULAR HGB 26.2 pG CALC (26.0-32.0); MEAN CORPUSCULAR HGB CONC 29.1 g/dL CAL (32.0-36.0); NEUT# 5.19 thou/uL (1.82-7.42); RED BLOOD COUNT 2.94 mill/uL (4.70-6.10); RED CELL DISTRI WIDTH 17.8 % (11.5-15.5)
[2020-03-05 05:55] LABS: CREATININE 1.6 mg/dL (0.7-1.3); POTASSIUM 2.9 mmol/l (3.5-5.1)
--- NOTE | 2020-03-05 07:38 | NUR ---
PATIENT AWAKE AND LAYING ON A AIR MATTRESS AT THIS TIME. PATIENT HAS A KOROMA THAT IS DRAINING CLEAR YELLOW URINE AT THIS TIME. PATIENT IS ON O2 AT 4 LITERS AND IV IS PATENT AND INFUSING .9 NORMAL SALINE AT 20ML/HR. PATEINT DENIES ANY NEEDS AT THIS TIME. RN ASSESSEMENT DONE SEE INTERVENTIONS. CALL LIGHT WITHIN REACH.
--- NOTE | 2020-03-05 11:48 | NUR ---
PATIENT IN BED AT THIS TIME ON AIR MATTRESS. DENIES ANY NEEDS CALL LIGHT WITHIN REACH. O2 REMAINS ON AT [address] AT THIS TIME.
--- NOTE | 2020-03-05 16:46 | NUR ---
PATIENT RESTING IN BED AT THIS TIME CALL LIGTH WITHIN REACH DENIES ANY NEEDS
--- NOTE | 2020-03-05 19:30 | NUR ---
PATIENT RESTING ON AIR MATTRESS WITH HOB ELEVATED AND IS SOB WITH O2 VIA NASAL CANNULA IN PLACE. PATIENT C/O NO AIR THROUGH NASAL CANNULA. O2 SAT ONLY 81. NEW O2 NASAL CANNULA APPLIED AND O2 SAT IS NOW 94% ON OO2 4LPM. PATIENT STAQTES THAT HE IS FEELING BETTER. PATIENT WITH KOROMA CATH PATENT AND DRAININGY YELLOW URINE. IVF NS PATENT AND INFUSING VIA RIGHT WRIST SITE AT 20CC/HR. SITE IS HEALTHY AT THIS TIME. TELE MONITOR IN PLACE. CALL LIGHT IN REACH. WILL CONT TO MONITOR.
--- NOTE | 2020-03-06 | NUR ---
PATIENT RESTING IN BED-INCONT OF MODERATE AMT OF GEL LIKE STOOL. PATIENT PROVIDED WITH PERINEAL AND KOROMA CATH CARE WITH SOAP AND WATER. TURNED AND REPOSITIONED ON AIR MATTRESS. O2 VIA NASAL CANNULA IN PLACE AT 4LPM. O2 SAT REMAINS STABLE AT 94-96%. KOROMA CATH IS PATENT AND DRAING YELLOW URINE. IVF PATENT AND INFUSING VIA RIGHT WRIST SITE AT KVO RATE. SITE REMAINS HEALTHY. PO VANCO GIVEN ORDERED. CALL LIGHT IN REACH. WILL CONT TO MONITOR.
[2020-03-06 03:49] VITALS: BP 156/82
--- NOTE | 2020-03-06 03:59 | NUR ---
PATIENT REPOSITIONED I N BED-ON AIR MATTRESS. PATIENT REQUESTED OCEAN NASAL SPRAY ORDERED. TELE MONITOR IN PLACE. IVF NS PATENT AND INFUSING VIA RIGHT WRIST IV SITE AT 20CC/HR. SITE REMAINS HEALTHY. O2 VIA NASAL CANNULA IN PLACE AT 4LPM. KOROMA PATENT AND DRAINING YELLOW URINE. SAFETY PRECAUTIONS REINFORCED. CALL LIGHT IN REACH. WILL CONT TO MONITOR.
[2020-03-06 05:47] LABS: HEMATOCRIT 26.2 % (39.0-50.0); HEMOGLOBIN 7.9 g/dl (14.0-18.0); MEAN CELL VOLUME 88.2 fL CALC (80.0-100.0); MEAN CORPUSCULAR HGB 26.6 pG CALC (26.0-32.0); MEAN CORPUSCULAR HGB CONC 30.2 g/dL CAL (32.0-36.0); RED BLOOD COUNT 2.97 mill/uL (4.70-6.10); RED CELL DISTRI WIDTH 17.7 % (11.5-15.5)
[2020-03-06 06:07] LABS: BILIRUBIN, TOTAL 0.7 mg/dL (0.0-1.4); CREATININE 1.7 mg/dL (0.7-1.3); POTASSIUM 2.9 mmol/l (3.5-5.1)
[2020-03-06 06:30] LABS: ALBUMIN 2.6 g/dL (3.2-5.0)
[2020-03-06 07:30] VITALS: BP 152/80
--- NOTE | 2020-03-06 07:30 | NUR ---
PATIENT RESTING IN BED AT THIS TIME O2 ON AT 4 LITERS SPO2 94%. PATIENT DENIES ANY PAIN AT THIS TIME. CALL LIGHT IS WITHIN REACH KOROMA PATENT AND DRAINING CLEAR YELLOW URINE AT THIS TIME.
[2020-03-06 11:23] VITALS: BP 155/62
--- NOTE | 2020-03-06 12:54 | NUR ---
PATIENT IN BED EATING LUCNH DENIES NEEDS AT THIS TIME CALL LIGHT WITHIN REACH. PATIENT DENIES ANY PAIN CURRENTLY. ZINC APPLIED TO BACK AND BUTTOCKS PER DR. MILTON ORDERS.
[2020-03-06 14:45] VITALS: BP 113/66
--- NOTE | 2020-03-06 16:00 | NUR ---
PATIENT RESTING IN BE 02 ON 4 LITERS AT THIS TIME KOROMA CATH DRAINING CLEAR YELLOW URINE PATIENT WILFREDO ANY PAIN. PATIENT IS ON A AIR MATTRESS AND CALL LIGHT IS WITHIN REACH.
[2020-03-06 19:09] VITALS: BP 134/76
--- NOTE | 2020-03-06 19:57 | NUR ---
PATIENT RESTING IN BED ON AIR MATTRESS WITH HOB ELEVATED. AWAKE ALERT AND ORIENTEDX3 WITH NO COMPLAINTS AT THIS TIME. PATIENT WITH O2 VIA NASAL CANNULA IN PLACE AT 4LPM. IVF NS PATENT AND INFUSING WIA RIGHT WRIST AT 20CC/HR. SITE REMAINS HEALTHY AT THIS TIME. TELE MONITOR IN PLACE. KOROMA CATH PATENT AND DRAINING YELLOW URINE. PATIENT ON CONTACT PLUS ISOLATION FOR C-DIFF. SAFETY PRECAUTIONS REINFORCED. CALL LIGHT IN REACH. WILL CONT TO MONITOR.
[2020-03-07] VITALS: BP 132/73
--- NOTE | 2020-03-07 00:10 | NUR ---
PATIENT RESTING IN BED WITH HOB ELEVATED AND O2 VIA NASAL CANNULA IN PLACE. NO COMPLAIONTS AT THIS TIME. TELE MONITOR IN PLACE. KOROMA PATENT AND DRAINING YELLOW URINE. IVF PATENT AND INFUSING VIA RIGHT WRIST AT 20CC/HR. SITE REMAINS HEALTHY. VANCO PO GIVEN. WATCHING TV. CALL LIGHT IN REACH. WILL CONT TO MONITOR.
[2020-03-07 04:00] VITALS: BP 136/70
--- NOTE | 2020-03-07 04:17 | NUR ---
PATIENT RESTING IN BED AT THIS TIME-ON AIR MATTRESS. NO COMPLAINTS AT THIS TIME. O2 VIA NASAL CANNULA IN PLACE. IVF PATENT AND INFUSING VIA RIGHT WRIST SITE AT 20CC/HR. KOROMA CATH PATENT AND DRAINING YELLOW URINE. CALL LIGHT IN REACH. WILL CONT TO MONITOR.
[2020-03-07 06:24] LABS: HEMOGLOBIN 8.1 g/dl (14.0-18.0); MEAN CELL VOLUME 89.7 fL CALC (80.0-100.0); MEAN CORPUSCULAR HGB CONC 28.9 g/dL CAL (32.0-36.0); RED BLOOD COUNT 3.12 mill/uL (4.70-6.10); RED CELL DISTRI WIDTH 17.7 % (11.5-15.5)
[2020-03-07 06:48] LABS: ALBUMIN 2.7 g/dL (3.2-5.0); BILIRUBIN, TOTAL 0.7 mg/dL (0.0-1.4); CREATININE 1.7 mg/dL (0.7-1.3); TOTAL PROTEIN 6.1 g/dL (6.3-8.2)
[2020-03-07 06:58] LABS: POTASSIUM 3.8 mmol/l (3.5-5.1)
[2020-03-07 07:51] VITALS: BP 140/92
--- NOTE | 2020-03-07 08:33 | NUR ---
DR ANGLIN AT BEDSIDE
[2020-03-07 08:40] VITALS: BP 142/62
--- NOTE | 2020-03-07 08:40 | NUR ---
RECIEVED REPORT FROM WHITLEY HOGAN. PT RESTING IN SEMI FOWLERS POSITION.INTRODUCED SELF TO PT AND DICUSSED POC. PT IS A/O X3 AND A TOTAL CARE. ASSESSMENT AND VITALS COMPLETED. RESPIRATIONS ARE EVEN AND UNLABORED ON 4L NC. HEART RHYTHM IS NORMAL WITH TELE MONITORING IN PLACE, SR WITH PVC PER ER MONITORING. BOWEL SOUND SARE ACTIVE IN ALL QUADRANTS, LAST REPORTED BM 03/06/20. RADIAL AND PEDAL PULSES ARE STRONG. #22G IN RW INFUSING WITH IVF PER ORDER, SITE APPEARS HEALTHY AND PATENT. KOROMA CATHATER IN PLACE, 700ML OF YELLOW URINE EMPTIED.SKIN IS REDDENED/ DRY/FLAKY BUT INTACT. ZINC OXIDE APPLIED TO BACK AND BUTTOCKS. HEAL PROTECTOR IN PLACE WITH AIR MATRESS. PT DENIES OF ANY PAINS OR DISCOMFORTS. ALL SFAETY PRECAUTIONS ARE IN PLACE WITH CALL LIGHT IN REACH. CONTACT PLUS PRECUATIONS IN PLACE. WILL CONTINUE TO MONITOR
--- NOTE | 2020-03-07 09:24 | NUR ---
RT AT BEDSIDE
[2020-03-07] MEDS ORDERED: FIRVANQ25 MG/ML PO (11:05)
[2020-03-07 11:13] VITALS: BP 140/67
--- NOTE | 2020-03-07 12:25 | NUR ---
PT RESTING IN HIGH SHAH POSITION. RESPIRATIONS ARE EVEN AND UNLABORED ON 4L NC. IVF INFUSING PER ORDER, SITE APPEARS HEALTHY AND PATENT. PT DENEIS OF ANY PAINS. MEDICAL TRANSPORT TO ARRIVE IN 45 MINUETS.ALL SAFETY PRECAUTIONS ARE IN PLACE. WILL CONTINUE TO MONITOR
--- NOTE | 2020-03-07 12:40 | NUR ---
PT EDUCATED ON DISCHARGE INSTRUCTIONS AND NEW MEDICATIONS. PT VERBALIZED UNDERSTANDING. IV REMOVED WITH CATHATER SITLL INTACT. PT TOLERATED WELL. TELE MONITORING REMOVED. ER NOTFIED. DAUGHTER IN LAW REQUESTED FOR MEDICATIONS TO BE SENT TO [facility]. [facility] FAXED.
--- NOTE | 2020-03-07 13:22 | NUR ---
Discharge instructions given. Patient verbalizes understanding of same. Discharged in stable condition via Medical Transport to Home with staff. All belongings sent with pt. PT DISCHARGED HOME WITH [facility] IN STABLE CONDITION.PT LEFT WITH ALL BELONGINGS AND DISCHARGE INSTRUCTIONS.
== END 2020-03-07 13:17 | disposition home or self-care (01) | DRG 872 ==
LOC: ED 12:09 → ED-I 14:35 → ED 14:51 → MS2 14:52
PROVIDERS: Nurse Practitioner; Nurse Practitioner Family; ADMIT Internal Medicine; ATTEND Internal Medicine
DX: A41.9 Sepsis, unspecified organism (principal); N39.0 Urinary tract infection, site not specified; T83.518A Infection and inflammatory reaction due to other urinary catheter, initial encounter; A04.72 Enterocolitis due to Clostridium difficile, not specified as recurrent; N17.9 Acute kidney failure, unspecified; J90 Pleural effusion, not elsewhere classified; G82.20 Paraplegia, unspecified; I13.0 Hypertensive heart and chronic kidney disease with heart failure and stage 1 through stage 4 chronic kidney disease, or unspecified chronic kidney disease; E87.6 Hypokalemia; I50.9 Heart failure, unspecified; N18.30 Chronic kidney disease, stage 3 unspecified; I48.91 Unspecified atrial fibrillation; J44.9 Chronic obstructive pulmonary disease, unspecified; I25.10 Atherosclerotic heart disease of native coronary artery without angina pectoris; L89.90 Pressure ulcer of unspecified site, unspecified stage; E78.5 Hyperlipidemia, unspecified; D64.9 Anemia, unspecified; K21.9 Gastro-esophageal reflux disease without esophagitis; N40.1 Benign prostatic hyperplasia with lower urinary tract symptoms; N39.498 Other specified urinary incontinence; F41.9 Anxiety disorder, unspecified; M19.90 Unspecified osteoarthritis, unspecified site; B96.5 Pseudomonas (aeruginosa) (mallei) (pseudomallei) as the cause of diseases classified elsewhere; Z20.822 Contact with and (suspected) exposure to COVID-19; Z99.81 Dependence on supplemental oxygen; Z79.82 Long term (current) use of aspirin; Z79.899 Other long term (current) drug therapy; Z95.810 Presence of automatic (implantable) cardiac defibrillator; Z95.1 Presence of aortocoronary bypass graft; Z95.5 Presence of coronary angioplasty implant and graft; Z98.1 Arthrodesis status; Z87.440 Personal history of urinary (tract) infections; Z87.891 Personal history of nicotine dependence
CPT/HCPCS: J0131; J0692; Q3014

== ENCOUNTER 2020-06-08 | Inpatient (IN) | payer MEDICARE ==
[2020-06-08] VITALS (12 sets, daily range): BP systolic 141–168; BP diastolic 55–78
[~2020-06-08] MED LIST changes: +FIRVANQ25 MG/ML PO
[2020-06-08 17:56] LABS: HEMATOCRIT 28.3 % (39.0-50.0); IMMATURE GRANULOCYTES 1.1 % (0.0-5.0); MEAN CELL VOLUME 89.6 fL CALC (80.0-100.0); MEAN CORPUSCULAR HGB 25.3 pG CALC (26.0-32.0); MEAN CORPUSCULAR HGB CONC 28.3 g/dL CAL (32.0-36.0); NEUT# 18.92 thou/uL (1.82-7.42); RED BLOOD COUNT 3.16 mill/uL (4.70-6.10); RED CELL DISTRI WIDTH 17.5 % (11.5-15.5)
[2020-06-08 18:15] LABS: BILIRUBIN, TOTAL 0.7 mg/dL (0.0-1.4); CREATININE 2.1 mg/dL (0.7-1.3); MAGNESIUM 2.2 mg/dL (1.6-2.3); POTASSIUM 3.9 mmol/l (3.5-5.1); TOTAL PROTEIN 6.9 g/dL (6.3-8.2)
[2020-06-08 18:27] LABS: ACT PARTIAL THROMBO TIME 20.4 SECONDS (20.0-32.5); INTERNATIONAL NORMALIZED RATIO 1.1 RATIO (0.7-1.3); PROTHROMBIN TIME 11.1 SECONDS (9.0-12.5)
[2020-06-08 18:36] LABS: URINE BILIRUBIN - DIPSTICK NEGATIVE (NEGATIVE); URINE BLOOD DIPSTICK LARGE (NEGATIVE); URINE COLOR YELLOW; URINE GLUCOSE - DIPSTICK NEGATIVE (NEGATIVE); URINE KETONE NEGATIVE (NEGATIVE); URINE PROTEIN - DIPSTICK 30 mg/dL (NEG-TRACE); URINE UROBILINOGEN - DIPSTICK 0.2 E.U./dL (0.2)
[2020-06-08 18:37] LABS: URINE LEUK ESTERASE MODERATE (NEGATIVE); URINE NITRITE - DIPSTICK NEGATIVE (Negative)
[2020-06-09] VITALS (28 sets, daily range): BP systolic 106–157; BP diastolic 54–78
[2020-06-09 05:56] LABS: HEMATOCRIT 27.5 % (39.0-50.0); IMMATURE GRANULOCYTES 0.3 % (0.0-5.0); MEAN CELL VOLUME 87.3 fL CALC (80.0-100.0); MEAN CORPUSCULAR HGB 25.4 pG CALC (26.0-32.0); MEAN CORPUSCULAR HGB CONC 29.1 g/dL CAL (32.0-36.0); NEUT# 5.71 thou/uL (1.82-7.42); RED BLOOD COUNT 3.15 mill/uL (4.70-6.10); RED CELL DISTRI WIDTH 17.5 % (11.5-15.5)
[2020-06-09 06:08] LABS: ALBUMIN 2.8 g/dL (3.2-5.0); BILIRUBIN, TOTAL 0.7 mg/dL (0.0-1.4); CREATININE 1.9 mg/dL (0.7-1.3); TOTAL PROTEIN 6.7 g/dL (6.3-8.2)
[2020-06-10] VITALS (22 sets, daily range): BP systolic 105–151; BP diastolic 52–79
[2020-06-10 05:46] LABS: HEMOGLOBIN 7.5 g/dl (14.0-18.0); IMMATURE GRANULOCYTES 0.6 % (0.0-5.0); MEAN CELL VOLUME 85.2 fL CALC (80.0-100.0); MEAN CORPUSCULAR HGB 24.6 pG CALC (26.0-32.0); MEAN CORPUSCULAR HGB CONC 28.8 g/dL CAL (32.0-36.0); NEUT# 4.49 thou/uL (1.82-7.42); RED BLOOD COUNT 3.05 mill/uL (4.70-6.10)
[2020-06-10 06:04] LABS: ALBUMIN 2.8 g/dL (3.2-5.0); BILIRUBIN, TOTAL 0.6 mg/dL (0.0-1.4); CREATININE 1.8 mg/dL (0.7-1.3); POTASSIUM 4.1 mmol/l (3.5-5.1); TOTAL PROTEIN 6.3 g/dL (6.3-8.2)
[2020-06-10 09:45] LABS: INTERNATIONAL NORMALIZED RATIO 1.1 RATIO (0.7-1.3)
[2020-06-11] VITALS (17 sets, daily range): BP systolic 81–155; BP diastolic 45–77
[2020-06-11 05:58] LABS: HEMATOCRIT 26.6 % (39.0-50.0); HEMOGLOBIN 7.6 g/dl (14.0-18.0); IMMATURE GRANULOCYTES 0.4 % (0.0-5.0); MEAN CELL VOLUME 86.9 fL CALC (80.0-100.0); MEAN CORPUSCULAR HGB 24.8 pG CALC (26.0-32.0); MEAN CORPUSCULAR HGB CONC 28.6 g/dL CAL (32.0-36.0); NEUT# 6.44 thou/uL (1.82-7.42); RED BLOOD COUNT 3.06 mill/uL (4.70-6.10); RED CELL DISTRI WIDTH 18.3 % (11.5-15.5)
[2020-06-11 05:59] LABS: ALBUMIN 2.9 g/dL (3.2-5.0); BILIRUBIN, TOTAL 0.6 mg/dL (0.0-1.4); CREATININE 2.1 mg/dL (0.7-1.3); MAGNESIUM 2.5 mg/dL (1.6-2.3); POTASSIUM 3.8 mmol/l (3.5-5.1); TOTAL PROTEIN 6.4 g/dL (6.3-8.2)
[2020-06-12] VITALS (40 sets, daily range): BP systolic 73–173; BP diastolic 36–92
[2020-06-12 05:38] LABS: HEMATOCRIT 28.4 % (39.0-50.0); HEMOGLOBIN 8.2 g/dl (14.0-18.0); IMMATURE GRANULOCYTES 0.7 % (0.0-5.0); MEAN CELL VOLUME 86.9 fL CALC (80.0-100.0); MEAN CORPUSCULAR HGB 25.1 pG CALC (26.0-32.0); MEAN CORPUSCULAR HGB CONC 28.9 g/dL CAL (32.0-36.0); NEUT# 14.7 thou/uL (1.82-7.42); RED BLOOD COUNT 3.27 mill/uL (4.70-6.10); RED CELL DISTRI WIDTH 18.5 % (11.5-15.5)
[2020-06-12 05:53] LABS: ALBUMIN 3.1 g/dL (3.2-5.0); CREATININE 2.3 mg/dL (0.7-1.3); MAGNESIUM 2.3 mg/dL (1.6-2.3); POTASSIUM 3.5 mmol/l (3.5-5.1); TOTAL PROTEIN 6.6 g/dL (6.3-8.2)
[2020-06-12 06:04] LABS: BILIRUBIN, TOTAL 1.1 mg/dL (0.0-1.4)
[2020-06-13] VITALS (13 sets, daily range): BP systolic 90–146; BP diastolic 50–78
[2020-06-13 05:42] LABS: HEMATOCRIT 27.7 % (39.0-50.0); HEMOGLOBIN 7.8 g/dl (14.0-18.0); MEAN CELL VOLUME 89.1 fL CALC (80.0-100.0); MEAN CORPUSCULAR HGB 25.1 pG CALC (26.0-32.0); MEAN CORPUSCULAR HGB CONC 28.2 g/dL CAL (32.0-36.0); NEUT# 11.73 thou/uL (1.82-7.42); RED BLOOD COUNT 3.11 mill/uL (4.70-6.10)
[2020-06-13 05:56] LABS: ALBUMIN 3.2 g/dL (3.2-5.0); BILIRUBIN, TOTAL 1.2 mg/dL (0.0-1.4); CREATININE 2.8 mg/dL (0.7-1.3); POTASSIUM 3.5 mmol/l (3.5-5.1); TOTAL PROTEIN 6.8 g/dL (6.3-8.2)
[2020-06-14] VITALS (10 sets, daily range): BP systolic 121–161; BP diastolic 57–77
[2020-06-14 05:26] LABS: HEMATOCRIT 25.2 % (39.0-50.0); HEMOGLOBIN 7.3 g/dl (14.0-18.0); IMMATURE GRANULOCYTES 0.9 % (0.0-5.0); MEAN CELL VOLUME 86.9 fL CALC (80.0-100.0); MEAN CORPUSCULAR HGB 25.2 pG CALC (26.0-32.0); NEUT# 10.55 thou/uL (1.82-7.42); RED BLOOD COUNT 2.9 mill/uL (4.70-6.10); RED CELL DISTRI WIDTH 18.9 % (11.5-15.5)
[2020-06-14 05:37] LABS: CREATININE 2.4 mg/dL (0.7-1.3); MAGNESIUM 2.5 mg/dL (1.6-2.3)
[2020-06-15 00:05] VITALS: BP 142/91
[2020-06-15 04:00] VITALS: BP 134/79
[2020-06-15 05:07] LABS: HEMATOCRIT 26.6 % (39.0-50.0); HEMOGLOBIN 7.5 g/dl (14.0-18.0); IMMATURE GRANULOCYTES 0.7 % (0.0-5.0); MEAN CELL VOLUME 88.7 fL CALC (80.0-100.0); MEAN CORPUSCULAR HGB CONC 28.2 g/dL CAL (32.0-36.0); NEUT# 9.72 thou/uL (1.82-7.42); RED CELL DISTRI WIDTH 18.9 % (11.5-15.5)
[2020-06-15 05:28] LABS: TOTAL PROTEIN 6.5 g/dL (6.3-8.2)
[2020-06-15 05:30] LABS: POTASSIUM 3.8 mmol/l (3.5-5.1)
[2020-06-15 07:30] VITALS: BP 165/91
[2020-06-15 10:30] VITALS: BP 154/72
[2020-06-15 14:47] VITALS: BP 146/93
[2020-06-15 20:00] VITALS: BP 135/68
[2020-06-16] VITALS: BP 166/89
[2020-06-16 04:10] VITALS: BP 136/70
[2020-06-16 05:52] LABS: HEMATOCRIT 26.7 % (39.0-50.0); HEMOGLOBIN 7.7 g/dl (14.0-18.0); MEAN CELL VOLUME 87.3 fL CALC (80.0-100.0); MEAN CORPUSCULAR HGB 25.2 pG CALC (26.0-32.0); MEAN CORPUSCULAR HGB CONC 28.8 g/dL CAL (32.0-36.0); RED BLOOD COUNT 3.06 mill/uL (4.70-6.10); RED CELL DISTRI WIDTH 19.2 % (11.5-15.5)
[2020-06-16 06:07] LABS: CREATININE 1.9 mg/dL (0.7-1.3); POTASSIUM 3.2 mmol/l (3.5-5.1)
[2020-06-16 07:30] VITALS: BP 134/76
[2020-06-16 10:30] VITALS: BP 137/51
[2020-06-16 14:59] VITALS: BP 151/61
[2020-06-16 19:53] VITALS: BP 132/79
[2020-06-17] VITALS (7 sets, daily range): BP systolic 92–139; BP diastolic 46–89
[2020-06-17 05:03] LABS: CREATININE 1.9 mg/dL (0.7-1.3); POTASSIUM 2.9 mmol/l (3.5-5.1)
[2020-06-18 04:16] VITALS: BP 135/71
[2020-06-18 05:20] LABS: HEMATOCRIT 26.6 % (39.0-50.0); HEMOGLOBIN 7.6 g/dl (14.0-18.0); MEAN CELL VOLUME 87.5 fL CALC (80.0-100.0); MEAN CORPUSCULAR HGB CONC 28.6 g/dL CAL (32.0-36.0); RED BLOOD COUNT 3.04 mill/uL (4.70-6.10)
[2020-06-18 05:31] LABS: POTASSIUM 3.4 mmol/l (3.5-5.1)
[2020-06-18 07:50] VITALS: BP 135/70
[2020-06-18] MEDS ORDERED: (None)125 MG PO (09:57)
[2020-06-18] MEDS ORDERED: PANTOPRAZOLE SO40 M1 PO (09:57)
[2020-06-18] MEDS ORDERED: LEVAQUIN750 M1 PO (09:57)
[2020-06-18 10:32] VITALS: BP 138/58
== END 2020-06-18 15:23 | DRG 871 ==
PROVIDERS: Internal Medicine; Nurse Practitioner; ADMIT Internal Medicine
PROC: 0BH17EZ Insertion of Endotracheal Airway into Trachea, Via Natural or Artificial Opening (ICD-10-PCS; principal; 2020-06-08)
PROC: 5A1945Z Respiratory Ventilation, 24-96 Consecutive Hours (ICD-10-PCS; 2020-06-08)
PROC: 06HY33Z Insertion of Infusion Device into Lower Vein, Percutaneous Approach (ICD-10-PCS; 2020-06-08)
PROC: 0T2BX0Z Change Drainage Device in Bladder, External Approach (ICD-10-PCS; 2020-06-08)
DX: A41.9 Sepsis, unspecified organism (principal); R65.21 Severe sepsis with septic shock; J96.01 Acute respiratory failure with hypoxia; J15.1 Pneumonia due to Pseudomonas; J69.0 Pneumonitis due to inhalation of food and vomit; N39.0 Urinary tract infection, site not specified; N17.9 Acute kidney failure, unspecified; I13.0 Hypertensive heart and chronic kidney disease with heart failure and stage 1 through stage 4 chronic kidney disease, or unspecified chronic kidney disease; G82.20 Paraplegia, unspecified; E87.2 Acidosis; J44.0 Chronic obstructive pulmonary disease with (acute) lower respiratory infection; R04.2 Hemoptysis; N18.30 Chronic kidney disease, stage 3 unspecified; I50.9 Heart failure, unspecified; I25.10 Atherosclerotic heart disease of native coronary artery without angina pectoris; I48.91 Unspecified atrial fibrillation; E78.5 Hyperlipidemia, unspecified; E87.6 Hypokalemia; N40.0 Benign prostatic hyperplasia without lower urinary tract symptoms; M48.00 Spinal stenosis, site unspecified; F41.9 Anxiety disorder, unspecified; S51.812A Laceration without foreign body of left forearm, initial encounter; S51.811A Laceration without foreign body of right forearm, initial encounter; S91.211A Laceration without foreign body of right great toe with damage to nail, initial encounter; B96.5 Pseudomonas (aeruginosa) (mallei) (pseudomallei) as the cause of diseases classified elsewhere; X58.XXXA Exposure to other specified factors, initial encounter; Y92.239 Unspecified place in hospital as the place of occurrence of the external cause; Z99.81 Dependence on supplemental oxygen; Z95.1 Presence of aortocoronary bypass graft; Z95.810 Presence of automatic (implantable) cardiac defibrillator; Z87.440 Personal history of urinary (tract) infections; Z95.5 Presence of coronary angioplasty implant and graft; Z95.828 Presence of other vascular implants and grafts; Z87.11 Personal history of peptic ulcer disease; Z87.442 Personal history of urinary calculi; Z87.891 Personal history of nicotine dependence; Z20.822 Contact with and (suspected) exposure to COVID-19; Z90.2 Acquired absence of lung [part of]
CPT/HCPCS: J0692; J1650; J3370; S0164

== ENCOUNTER 2020-06-20 10:41 | Observation (INO) | payer MEDICARE ==
[~2020-06-20] VITALS: Ht 185.4 cm; Wt 109.0 kg
[~2020-06-20 10:41] MED LIST changes: +(None)125 MG PO; +LEVAQUIN750 M1 PO; +PANTOPRAZOLE SO40 M1 PO
--- NOTE | 2020-06-20 10:58 | NUR ---
ASSISTED PATIENT TO POSITION OF COMFORT LINENS CHANGED PATIENT RECIEVED FROM [facility] GOWN STILL ON AND BEDLINENS WITH VARIOUS BITS OF FOOD PRESENT
--- NOTE | 2020-06-20 11:09 | NUR ---
TRANSFERED FROM EMS STRETCHER TO ROOM 9 STRETCHER, ALERT ORIENTED
[2020-06-20 11:19] LABS: HEMATOCRIT 28.5 % (39.0-50.0); HEMOGLOBIN 8.3 g/dl (14.0-18.0); IMMATURE GRANULOCYTES 0.5 % (0.0-5.0); MEAN CELL VOLUME 87.4 fL CALC (80.0-100.0); MEAN CORPUSCULAR HGB 25.5 pG CALC (26.0-32.0); MEAN CORPUSCULAR HGB CONC 29.1 g/dL CAL (32.0-36.0); NEUT# 8.44 thou/uL (1.82-7.42); RED BLOOD COUNT 3.26 mill/uL (4.70-6.10); RED CELL DISTRI WIDTH 20.1 % (11.5-15.5)
[2020-06-20 11:25] LABS: URINE BILIRUBIN - DIPSTICK NEGATIVE (NEGATIVE); URINE BLOOD DIPSTICK MODERATE (NEGATIVE); URINE COLOR YELLOW; URINE GLUCOSE - DIPSTICK NEGATIVE (NEGATIVE); URINE KETONE 15 mg/dL (NEGATIVE); URINE PH 5.5 (4.5-8.0); URINE PROTEIN - DIPSTICK 100 mg/dL (NEG-TRACE); URINE SPECIFIC GRAVITY 1.025; URINE UROBILINOGEN - DIPSTICK 0.2 E.U./dL (0.2)
[2020-06-20 11:26] LABS: URINE LEUK ESTERASE MODERATE (NEGATIVE); URINE NITRITE - DIPSTICK NEGATIVE (Negative)
[2020-06-20 11:35] LABS: BILIRUBIN, TOTAL 0.9 mg/dL (0.0-1.4); CREATININE 2.3 mg/dL (0.7-1.3); MAGNESIUM 2.6 mg/dL (1.6-2.3); POTASSIUM 3.2 mmol/l (3.5-5.1); TOTAL PROTEIN 7.8 g/dL (6.3-8.2)
[2020-06-20 11:44] LABS: URINE SQUAMOUS EPITHELIAL CELL FEW EPI/hpf (0-FEW); URINE WBC 50-100 WBC/hpf (0-5)
[2020-06-20 11:45] LABS: ALBUMIN 3.7 g/dL (3.2-5.0); URINE BACTERIA MODERATE hpf; URINE YEAST MODERATE hpf
[2020-06-20 11:46] LABS: ACT PARTIAL THROMBO TIME 24.7 SECONDS (20.0-32.5); INTERNATIONAL NORMALIZED RATIO 1.1 RATIO (0.7-1.3); PROTHROMBIN TIME 11.5 SECONDS (9.0-12.5)
--- NOTE | 2020-06-20 12:42 | NUR ---
SBAR PRINTED TO FLOOR
--- NOTE | 2020-06-20 13:02 | NUR ---
DAUGHTER IN LAW REMAINS BEDSIDE
--- NOTE | 2020-06-20 13:15 | NUR ---
CALLED TO ROOM MULTIPLE TIMES BY DAUGHTER IN LAW, EXPRESSES CONCERS RELATED TO DISCHARGE AND ADMISSION, CAREGIVER ROLE STRAIN POSSIBLE
--- NOTE | 2020-06-20 13:30 | NUR ---
UNABLE TO VERIFY PATIENTS MEDICATIONS. PHARMACY NOTIFIED OF NOT DOING UNOBTAINABLE. PHARMACY CONSULT PLACED
--- NOTE | 2020-06-20 14:21 | NUR ---
CALL TO FLOOR FOR REPORT NURSE TO RETURN CALL
--- NOTE | 2020-06-20 14:34 | NUR ---
RETURN CALL FROM FLOOR NURSE FOR REPORT
[2020-06-20 14:40] VITALS: BP 132/66
--- NOTE | 2020-06-20 15:10 | NUR ---
ASSESSMENT IS COMPLETED: IV SITE IS FREE FROM REDNESS OR EDMEA. HR IS REG,PULSES ARE STRONG X4, ABD IS SOFT WITH ACTIV EBS., BREATH SOUNSD ARE CLEAR,BILATERALLY, O2 @ 2LITERS WITH NC. CHANGED THE DRESSING ON BILATERAL ARMS. DUE TO SKIN TEARS. PT TOLERATED WELL. PT ARRIVED WITH HOSPITAL SHEETS FROM DISCHARGE ON THURSDAY, IN THE ER IT WAS REPORTED PT HAD ON THE SAME GOWN FROM DISCHARGE. KOROMA INTACT DRAINING YELLOW URINE. CONTINUE TO OSBERVE AND MONITOR.
--- NOTE | 2020-06-20 16:00 | NUR ---
SPOKE WITH PT'S DAUGHTER IN LAW, CONCERNED ABOUT HIS BOTTOM HAVING A SORE NEAR THE COCCYX AREA, ALSO A SORE ON HIS R SHOULDER. THE SKIN TEARS ON HIS ARMS. SHE STATED" TALK TO HIM , NO QUESTIONS , JUST HAVE A CONVERSATION, HE DOESN'T MAKE EYE CONTACT OR LOOK AT SOMEONE" HE JUST ISN'T ACTING RIGHT. SPOKE WITH PT RE: ADMISSION WAS ABLE TO ANSWER QUESTIONS APPROPRIATELY.
--- NOTE | 2020-06-20 17:10 | NUR ---
GLASSES WERE BROUGHT FROM FAMILY.
[2020-06-20 19:00] VITALS: BP 136/80
--- NOTE | 2020-06-20 20:00 | NUR ---
PT UP IN BED EATING SUPPER UPON ASSESSMENT. PT NOTED TO BE ALERT WITH SOME CONFUSION. REINSTRUCTED PT ON HOW TO UTILIZE TV REMOTE, CALL NAVARRO, AND IN ROOM PHONE. PT VERBALIZED UNDERSTANDING. SHIFT ASSESSMENT COMPLATED, PLEASE SEE DOCUMENTATION. SAFETY PRECAUTIONS IN PLACE, BED IN LOWEST POSITION, CALL LIGHT WITHIN REACH. WILL MONITOR.
[2020-06-21] VITALS: BP 123/74
--- NOTE | 2020-06-21 | NUR ---
PT IN BED RESTING QUIETLY AT THIS TIME. NO COMPLAINTS VOICED. SAFETY PRECAUTIONS IN PLACE, BED IN LOWEST POSITION, CALL LIGHT WITHIN REACH. SPOKE WITH SON AND DAUGHTER WHO CALLED IN TO GET AN UPDATE. FAMILY WAS ADVISED OF PATIENT STATUS. WILL MONITOR
--- NOTE | 2020-06-21 03:45 | NUR ---
PT RESTING QUIETLY WITH EYES CLOSED IN BED. PT HAS BEEN MOSTLY AWAKE THROUGHOUT THE NIGHT. O2 CONTINUES, KOROMA DRAINING YELLOW URINE, AND BREATHING IS EVEN AND UNLABORED. SAFETY PRECAUTIONS IN PLACE, BED IN LOWEST POSITION, AND CALL LIGHT WITHIN REACH. WILL MONITOR
[2020-06-21 04:00] VITALS: BP 135/76
[2020-06-21 05:40] LABS: MEAN CELL VOLUME 86.8 fL CALC (80.0-100.0); MEAN CORPUSCULAR HGB 25.2 pG CALC (26.0-32.0); RED BLOOD COUNT 3.57 mill/uL (4.70-6.10); RED CELL DISTRI WIDTH 20.5 % (11.5-15.5)
[2020-06-21 06:13] LABS: CREATININE 2.5 mg/dL (0.7-1.3); MAGNESIUM 2.5 mg/dL (1.6-2.3); POTASSIUM 3.7 mmol/l (3.5-5.1)
[2020-06-21 07:30] VITALS: BP 118/66
--- NOTE | 2020-06-21 08:00 | NUR ---
PT RESTING IN THE BED AXOX3, NO DISTRESS NOTED AT THIS TIME. KOROMA TO BEDSIDE DRAINAGE. NOTE MULTIPLE DRESSING TO UPPER EXTREMITIES. COMPLETE HYGINE CARE GIVEN. VAISHALI WELL. REPOSITIOEND FOR COMOFRT, SIDE RAILS UP CALL LIGHT IN REACH BED LOCKED IN LOW POSITION, ALL SAFTY MEASURES IN PLACE. WILL CONTINUE TO MONIOTR THE PATIENT.
--- NOTE | 2020-06-21 10:27 | NUR ---
PT RESTING COMFORTABLE NO DISTRESS NOTED AT THIS TIME.
[2020-06-21 10:46] VITALS: BP 126/92
--- NOTE | 2020-06-21 12:39 | NUR ---
PT SITTING UP IN THE BED EATING HIS LUNCH NO DISTRESS NOTED AT THIS TIME.
--- NOTE | 2020-06-21 14:00 | NUR ---
FAMILY MEMBERS AT THE BEDSIDE ALL MED QUESTIONS ANSWERED. NO COMPALINTS FROM PATIENT OR FAMILY MEMBERS.
[2020-06-21 15:01] VITALS: BP 114/52
--- NOTE | 2020-06-21 16:06 | NUR ---
PT REPOSITIONED IN THE BED, SITTING UP WATCHING THE TV. NO DISTRESS NOTED AT THIS TIME. WILL CONTINUE TO MONIOTR THE PATIENT.
[2020-06-21 19:15] VITALS: BP 100/63
--- NOTE | 2020-06-21 20:12 | NUR ---
PATIENT AWAKE IN BED. NO COMPLAINTS. JUST CALLED ASKING ON AN UPDATE AND WAS WONDERDING WHAT PATIENT'S PLAN WAS AFTER DISCHARGE. INFORMED THAT I DID NOT HAVE INFORMATION REGARDING THIS AND MAY NEED TO CONTACT CASE MANAGEMENT FOR MORE INFORMATION.
[2020-06-22 00:11] VITALS: BP 113/64
[2020-06-22 04:54] VITALS: BP 137/62
[2020-06-22 06:47] LABS: HEMATOCRIT 30.1 % (39.0-50.0); HEMOGLOBIN 8.8 g/dl (14.0-18.0); MEAN CELL VOLUME 86.2 fL CALC (80.0-100.0); MEAN CORPUSCULAR HGB 25.2 pG CALC (26.0-32.0); MEAN CORPUSCULAR HGB CONC 29.2 g/dL CAL (32.0-36.0); RED BLOOD COUNT 3.49 mill/uL (4.70-6.10); RED CELL DISTRI WIDTH 21.1 % (11.5-15.5)
[2020-06-22 07:06] LABS: CREATININE 2.8 mg/dL (0.7-1.3); MAGNESIUM 2.5 mg/dL (1.6-2.3); POTASSIUM 3.5 mmol/l (3.5-5.1)
[2020-06-22 07:30] VITALS: BP 133/65
--- NOTE | 2020-06-22 08:14 | NUR ---
SHIFT CHANGE REPORT, PT AWAKE AND ALERT, N OC/O PAIN, O2 @ 2L VIA NC IN PLACE, TELE MONITOR IN PLACE, KOROMA IN PLACE WITH CLOUDY ROSE MARY URINE, CALL NAVARRO IN REACH AND BED LOCKED IN LOWEST POSITION.
--- NOTE | 2020-06-22 11:00 | NUR ---
DR MCGINNIS ROUNDED ON PT, OBSERVED AND ASSESSED WOUNDS, WROTE ORDERS.
[2020-06-22 11:51] VITALS: BP 147/76
--- NOTE | 2020-06-22 12:00 | NUR ---
MULTIPLE WOUNDS TO ARMS, COCCYX AND GLUTEUS, CLEANED AND DRESSED ODERED BY
--- NOTE | 2020-06-22 12:00 | NUR ---
WOUNDS TO UPPER EXT CLEANED WITH 0.9 NS, PAT DRY, ZEROFORM APPLIED, COVERED WITH ADB PAD AND SECURED WITH KERLIX PER MD'S ORDERS.
[2020-06-22 15:05] VITALS: BP 133/74
--- NOTE | 2020-06-22 16:00 | NUR ---
INFORMED OF BED CHANGE AND BENEFITS OF AIR MATTRESS, TRANSFERRED TO BED WITH AIR MATTRESS, TOLERATED PROCEDURE WELL, CALL NAVARRO IN REACH.
[2020-06-22 19:26] VITALS: BP 111/60
--- NOTE | 2020-06-22 20:00 | NUR ---
PT WAS ON RIGHT SIDE UPON ARRIVAL TO THE ROOM, THEN PT WAS TURNED TO BACK DURING REPOSITIONING. WILL CONTINUE TO TURN PT EVERY 2 HRS FOR OFF-LOADING, TO REDUCE THE POSSIBLITY OF ADDITIONAL SORES. PT DOES NOT SEEM CONFUSED THIS EVENING HOWEVER HE STATED THAT HE WAS VERY TIRED. WILL CONTINUE TO MONITOR, FLUIDS ENCOURAGED.
[2020-06-23] VITALS (7 sets, daily range): BP systolic 104–135; BP diastolic 58–70
--- NOTE | 2020-06-23 | NUR ---
PT RESTING WITH EYES CLOSED PRESUMMED TO BE SLEEPING. NO S/S OF DISTRESS OR PAIN. CALL LIGHT WITHIN REACH.
--- NOTE | 2020-06-23 04:00 | NUR ---
PT SLEEPING NO S/S OF DISCOMFORT. CALL LIGHT AND BELONGINGS WITHIN REACH. WILL CONTINUE TO MONITOR.
[2020-06-23 05:44] LABS: HEMOGLOBIN 9.2 g/dl (14.0-18.0); MEAN CELL VOLUME 87.4 fL CALC (80.0-100.0); MEAN CORPUSCULAR HGB 25.1 pG CALC (26.0-32.0); MEAN CORPUSCULAR HGB CONC 28.8 g/dL CAL (32.0-36.0); RED BLOOD COUNT 3.66 mill/uL (4.70-6.10); RED CELL DISTRI WIDTH 21.5 % (11.5-15.5)
--- NOTE | 2020-06-23 06:00 | NUR ---
PT SLEEPING, AWAKENED FOR MEDICATION ADMINISTRATION. PT COMPLAINING THAT HIS ROOM IS TOO COLD AND ASKS FOR THE SHEET TO BE PUT OVER HIS FACE. WILL CONTINUE TO MONITOR.
[2020-06-23 06:05] LABS: ALBUMIN 3.3 g/dL (3.2-5.0); BILIRUBIN, TOTAL 0.8 mg/dL (0.0-1.4); CREATININE 2.6 mg/dL (0.7-1.3); MAGNESIUM 2.5 mg/dL (1.6-2.3); POTASSIUM 3.6 mmol/l (3.5-5.1); TOTAL PROTEIN 7.1 g/dL (6.3-8.2)
--- NOTE | 2020-06-23 07:00 | NUR ---
REPORT RECEIVED FROM WHITLEY IVY
--- NOTE | 2020-06-23 09:25 | NUR ---
PT RESTING IN LEFT SIDE LAYING POSITION ON AIR MATTRESS,A&O X3;VS OBTAINED AND ASSESSMENT COMPLETED;PT DENIES ANY CURRENT PAIN OR DISCOMFORTS,PAIN SCALE AND REPORTING EDUCATED;RESPIRATIONS EVEN AND UNLABORED ON O2 @ 2L VIA NC,DIMINISHED LUNG SOUNDS NOTED;ABDOMEN DISTENDED/SOFT ON PALPATION AND ACTIVE IN ALL 4 QUADRANTS;KOROMA CATHETER PATENT DRAINING TO GRAVITY WITH EASE,STAT LOCK TO LEFT THIGH;WEAK PEDAL PULSES, FEET OFFLOADED ON A PILLOW AND HEEL PROTECTORS IN PLACE;BILATERAL ARM DRESSING CDI,PLACED 06/22/20;DRESSING TO RIGHT SHOULDER CHANGED AT THIS TIME;PT RE-POSITIONED TO RIGHT SIDE LAYING POSITION;#20G TO LAC FLUSHED AND PATENT,SITE APPEARS HEALTHY AND ABX STARTED AT THIS TIME;TELE MONITORING IN PLACE;PT DENIES ANY ADDITIONAL NEEDS AT THIS TIME AND IS ENCOURAGED TO CALL FOR ASSISTANCE IF NEEDED;FALL PRECAUTIONS IN PLACE WITH BED IN THE LOWEST POSITION AND CALL LIGHT IN REACH;WILL CONTINUE TO MONITOR
--- NOTE | 2020-06-23 11:24 | NUR ---
AT BEDSIDE DISCUSSING PO WITH PT AND FAMILY.
--- NOTE | 2020-06-23 11:50 | NUR ---
PT RESTING IN HIGH FOWLERS POSITION EATING LUNCH WITH FAMILY AT BEDSIDE;RESPIRATIONS EVEN AND UNLABORED ON O2 @ 2L VIA NC;PT DENIES ANY CURRENT PAIN OR DISCOMFORTS;DRESSINGS REMAIN CDI TO BUE;KOROMA CATHETER DRAINING TO GRAVITY WITH EASE;TELE MONITORING IN PLACE;PT ENCOURAGED TO CALL FOR ASSISTANCE IF NEEDED;CALL LIGHT IN REACH;WILL CONTINUE TO MONITOR
--- NOTE | 2020-06-23 14:30 | NUR ---
PT MEDICATED WITH PRN TYLENOL 650MG PO FOR LOWER BACK AND BLE PAIN RATING 7/10 ON THE PAIN SCALE,WILL CONTINUE TO MONITOR FOR EFFECTIVENESS
--- NOTE | 2020-06-23 15:30 | NUR ---
PT RESTING IN HIGH FOWLERS POSITION WITH FAMILY AT BEDSIDE;RESPIRATIONS EVEN AND UNLABORED ON O2 @ 2L VIA NC;PT DENIES ANY CURRENT PAIN OR DISCOMFORTS;TELE MONITORING;KOROMA CATHETER DRAINING TO GRAVITY WITH EASE;PT DENIES ANY ADDITIONAL NEEDS AND IS ENCOURAGED TO CALL FOR ASSISTANCE IF NEEDED;CALL LIGHT IN REACH;WILL CONTINUE TO MONITOR
--- NOTE | 2020-06-23 22:35 | NUR ---
PATIENT IS ALERT AND ORIENTED X3. ABLE TO MAKE NEEDS KNOWN. RESPIRATIONS EASY. ON TELEMETRY, PACED, VAD PATIENT LAC. DENIES PAIN. ASSESSMENT COMPLETED. EVENING MEDICATIONS GIVEN. ARMS WRAPPED WITH KERLEX D/T SKIN TEARS. BORDEAUX TO THE BUTTOCKS. KOROMA CATHETER IN PLACE AND DRAINING TO GRAVITY. BED IN LOW POSITION. BED ALARM ACTIVATED. CALL LIGHT WITHIN REACH.
[2020-06-24] VITALS (7 sets, daily range): BP systolic 116–149; BP diastolic 49–79
[2020-06-24 05:02] LABS: HEMATOCRIT 29.7 % (39.0-50.0); HEMOGLOBIN 8.7 g/dl (14.0-18.0); MEAN CELL VOLUME 87.4 fL CALC (80.0-100.0); MEAN CORPUSCULAR HGB 25.6 pG CALC (26.0-32.0); MEAN CORPUSCULAR HGB CONC 29.3 g/dL CAL (32.0-36.0); RED BLOOD COUNT 3.4 mill/uL (4.70-6.10); RED CELL DISTRI WIDTH 21.4 % (11.5-15.5)
[2020-06-24 05:27] LABS: CREATININE 2.6 mg/dL (0.7-1.3); POTASSIUM 3.4 mmol/l (3.5-5.1)
--- NOTE | 2020-06-24 06:45 | NUR ---
AT 0630 WAS REPORTED PATIENT HAD A RUN OF V-TAC. PATIENT REPORTED FEELING FINE. VS 96.9 90 20 119/70 98%. BED IN LOW POSITION. CALL LIGHT WITHIN REACH.
--- NOTE | 2020-06-24 07:00 | NUR ---
REPORT RECEIVED FROM CHALORN
--- NOTE | 2020-06-24 08:45 | NUR ---
PT RESTING IN SEMI FOWLERS POSITION,A&O X3;VS OBTAINED AND ASSESSMENT COMPLETED;PT DENIES ANY CURRENT PAIN OR DISCOMFORTS,PAIN SCALE AND REPORTING EDUCATED;RESPIRATIONS EVEN AND UNLABORED ON O2 @ 2L VIA NC,DIMINISHED LUNG SOUNDS NOTED;ABDOMEN SOFT ON PALPATION AND ACTIVE IN ALL 4 QUADRANTS;KOROMA CATHETER PATENT DRAINING TO GRAVITY WITH EASE,STAT LOCK NOTED TO LEFT THIGH;WEAK PEDAL PULSES;DRESSING CHANGES PROVIDED TO BUE, RT UPPER BACK, AND COCCYX PER WOUND CARE ORDERS;#20G TO LAC FLUSHED AND PATENT,ABX STARTED AT THIS TIME PER ORDER;TELE MONITORING IN PLACE;COMPLETE BED BATH COMPLETED AT THIS TIME;PT DENIES ANY ADDITIONAL NEEDS AND IS ENCOURAGED TO CALL FOR ASSISTANCE IF NEEDED;FALL PRECAUTIONS IN PLACE WITH BED IN THE LOWEST POSITION AND CALL LIGHT IN REACH;WILL CONTINUE TO MONITOR
--- NOTE | 2020-06-24 10:48 | NUR ---
AT BEDSIDE DISCUSSING POC WITH PT.
--- NOTE | 2020-06-24 11:40 | NUR ---
PT RESTING IN HIGH FOWLERS POSITION TALKING ON THE PHONE;RESPIRATIONS EVEN AND UNLABORED ON O2 @ 2L VIA NC;PT DENIES ANY CURRENT PAIN OR DISCOMFORTS;TELE MONITORING IN PLACE;KOROMA CATHETER DRAINING WITH EASE;IV SITE PATENT;PT ENCOURAGED TO CALL FOR ASSISTANCE IF NEEDED;FALL PRECAUTIONS IN PLACE WITH BED IN THE LOWEST POSITION AND CALL LIGHT IN REACH;WILL CONTINUE TO MONITOR
--- NOTE | 2020-06-24 14:01 | NUR ---
SPOUSE AT BEDSIDE
--- NOTE | 2020-06-24 15:50 | NUR ---
PT RESTING IN HIGH FOWLERS POSITION WITH SPOUSE AT BEDSIDE;RESPIRATIONS EVEN AND UNLABORED ON O2 @ 2L VIA NC;PT DENIES ANY CURRENT PAIN OR DISCOMFORTS;TELE MONITORING IN PLACE;IV SITE PATENT;KOROMA CATHETER CONTINUES TO DRAIN TO GRAVITY WITH EASE;ALL SAFETY PRECAUTIONS REMAIN IN PLACE WITH BED IN THE LOWEST POSITION AND CALL LIGHT IN REACH;WILL CONTINUE TO MONITOR
--- NOTE | 2020-06-24 19:00 | NUR ---
RECEIVED REPORT FROM NURSE ENCARNACION, PATIENT RESTING IN BED ASSUMED CARE, CALL LIGHT AT REACH.
--- NOTE | 2020-06-24 20:30 | NUR ---
PATIENT ALERT WITH CONFUSIONS NOTED, HOOKED TO O2 @ 2LPM VIA NC BREATHING SHALLOW UNLABORED AT THIS TIME, REMAINS ON TELE PACED 85, LUNG SOUND DIMINISHED, ACTIVE BOWEL SOUNDS, MULTIPLE SKIN TEAR ON BILAT ARMS, AND SKIN TEAR ON RT UPPER BACK COVERED WITH KERLIX, PATIENT RESTLESS ON HOW TO USE PHONE AND REMOTE CONTROL, AND REPEATEDLY WANTING TO CALL DAUGTER AND , ASSISTED TO MAKE A PHONE CALL, PATIENT RESTING ON AIR MATRESS CALL LIGHT AT REACH.
--- NOTE | 2020-06-25 00:52 | NUR ---
PATIENT RESTING IN BED WITH EYES CLOSED, REMAINS ON O2 @ 2LPM VIA NC, BREATHING UNLABORED CALL LIGHT AT REACH.
[2020-06-25 04:00] VITALS: BP 136/72
--- NOTE | 2020-06-25 04:49 | NUR ---
PATIENT REMAINS ON O2 @ 2LPM VIA NC, PATIENT BM X 1 LOOSE PASTY MEDIUM, PATIENT CLEANED, ZINC OXIDE APPLIED ORDERED BY WOUNDCARE, TURNED AND REPOSITIONED CURRENTLY FACING LEFT SIDE, CALL LIGHT AT REACH.
[2020-06-25 05:43] LABS: HEMATOCRIT 30.8 % (39.0-50.0); MEAN CELL VOLUME 86.8 fL CALC (80.0-100.0); MEAN CORPUSCULAR HGB 25.4 pG CALC (26.0-32.0); MEAN CORPUSCULAR HGB CONC 29.2 g/dL CAL (32.0-36.0); RED BLOOD COUNT 3.55 mill/uL (4.70-6.10); RED CELL DISTRI WIDTH 21.6 % (11.5-15.5)
[2020-06-25 06:12] LABS: CREATININE 2.7 mg/dL (0.7-1.3); MAGNESIUM 2.4 mg/dL (1.6-2.3); POTASSIUM 3.3 mmol/l (3.5-5.1)
[2020-06-25 07:15] VITALS: BP 126/63
--- NOTE | 2020-06-25 07:55 | NUR ---
ASSESSMENT IS COMPLETED:PT IS SLIGHTLY CONFUSED TODAY, IV SITE IS FREE FROM REDNESS OR EDMEA. HR IS REG,PULSES ARE STRONG X4, ABD IS SOFT WITH ACTIVEBS. BREATH SOUNDS ARE CLEAR,BILATERALLY, KOROMA DRAINING YELLOW URINE. TELE MONITOR IN PLACE. PT STAED" I AM FEELING STUPID TODAY". CONTINUE TO ENCOURAGE PTTO EAT AND DO THINGS.
--- NOTE | 2020-06-25 08:57 | NUR ---
SPOKE WITH PT DAUGHTER AND CASE MANAGEMENT. INQUIRED HOW HE WAS TODAY.EXPLAINED PT IS CONFUSED TODAY.
--- NOTE | 2020-06-25 10:25 | NUR ---
IV SITE STARTED TO COME OUT. 2 ATTEMPTS WERE MADE FOR A NEW SITE. BOTH SITES BLEW AND UNSUCCESSFUL. SPOKE WITH DR ANGLIN AND SATISH MORGAN RE: IV SITE .WILL CHANGE MEDICATION TO PO AND INJECTION.
--- NOTE | 2020-06-25 10:58 | NUR ---
IV SITE RESTARTED IN R LEG, WITH #22 PER MD ORDER. CONTINUE TO OBSERVE AND MONITOR. C/O PAIN ON BUTT AND ARM.
--- NOTE | 2020-06-25 11:15 | NUR ---
READJUSTED IN BED WITH ASSISTANCE FROM PHYSICAL THERAPY. AFTER GIVING PT MEDICATION FOR PAIN AND NERVES. ABT COMPLETED.IV SITE IN R LEG IS CDI. FLUSHES WELL.
--- NOTE | 2020-06-25 12:45 | NUR ---
PT IS RELAXING IN BED HAS BEEN TURNED ON HIS SIDE TO GET OFF BUTTOCK. CONTINUE TO OSBERVE AND MONITOR.
--- NOTE | 2020-06-25 13:16 | NUR ---
FAMILY JUST CALLED AND INQUIRED TIME FRAME FOR WHEN PT WILL BE TRANSFERRED TO SNF. EXPLAINED WAITING ON INSURANCE AUTHORIZATION.
[2020-06-25 15:00] VITALS: BP 112/46
[2020-06-25] MEDS ORDERED: CEFEPIME2 GM IM (15:15)
[2020-06-25] MEDS ORDERED: CEFEPIME2 GM IV (16:19)
[2020-06-25] MEDS ORDERED: LORAZEPAM0.5 MG PO (16:20)
--- NOTE | 2020-06-25 17:35 | NUR ---
SPOKE WITH PAT HOFFMAN AT [facility]. GAVE REPORT AND EXPLAINED ABOUT THE SKIN TEARS AND SORES ON HIS BOTTOM. AND MEDICATION. PICTURES OBTAINED. IV SITE IN [facility] HAS BEEN LEFT IN FOR ABT TREATMENT. PT HAD A LARGE BM AND WAS CLEANED PRIOR TO LEAVING WITH [facility]. KOROMA INTACT WITH YELLOW URINE.
--- NOTE | 2020-06-25 18:39 | NUR ---
CALLED [facility] AT SPOKE TO LUCAS WAS GIVEN CONFIRMATION [phone].
== END 2020-06-25 17:05 ==
LOC: ED 10:41 → ED-I 12:27 → ED 12:55 → ED-I 12:56 → MS2 14:05
PROVIDERS: Nurse Practitioner; ADMIT Internal Medicine; ATTEND Internal Medicine
DX: R41.82 Altered mental status, unspecified (principal); N39.0 Urinary tract infection, site not specified; I13.0 Hypertensive heart and chronic kidney disease with heart failure and stage 1 through stage 4 chronic kidney disease, or unspecified chronic kidney disease; N18.30 Chronic kidney disease, stage 3 unspecified; I50.9 Heart failure, unspecified; N17.9 Acute kidney failure, unspecified; R53.1 Weakness; E87.6 Hypokalemia; I48.91 Unspecified atrial fibrillation; J44.9 Chronic obstructive pulmonary disease, unspecified; E78.5 Hyperlipidemia, unspecified; K21.9 Gastro-esophageal reflux disease without esophagitis; I25.10 Atherosclerotic heart disease of native coronary artery without angina pectoris; F41.9 Anxiety disorder, unspecified; G82.20 Paraplegia, unspecified; L89.152 Pressure ulcer of sacral region, stage 2; L89.326 Pressure-induced deep tissue damage of left buttock; D64.9 Anemia, unspecified; R32 Unspecified urinary incontinence; N40.0 Benign prostatic hyperplasia without lower urinary tract symptoms; B95.4 Other streptococcus as the cause of diseases classified elsewhere; Z87.11 Personal history of peptic ulcer disease; Z87.440 Personal history of urinary (tract) infections; Z86.14 Personal history of Methicillin resistant Staphylococcus aureus infection; Z95.810 Presence of automatic (implantable) cardiac defibrillator; Z99.81 Dependence on supplemental oxygen; Z96.0 Presence of urogenital implants; Z95.0 Presence of cardiac pacemaker; Z74.01 Bed confinement status; Z95.1 Presence of aortocoronary bypass graft; Z87.891 Personal history of nicotine dependence; Z20.822 Contact with and (suspected) exposure to COVID-19
CPT/HCPCS: G0378; J0692